=== PATIENT | female | born 1950 | race Caucasian/White ===

== ENCOUNTER 2017-08-23 12:27 | Emergency (ER) | payer MEDICARE, OTHER, SELFPAY ==
[2017-08-23 12:29] VITALS: BP 88/65; PULSE 104; RESP 16; TEMP 36.2; O2SAT 99; BMI 18.7
--- NOTE | 2017-08-23 12:48 | ED.VISSUMM ---
- ER Visit Summary Date of Service: 08/23/17 Chief Complaint: [] Rectal bleeding History of Present Illness: The patient is a 67 F [] complaining of concern for rectal bleeding that began after eating hot dog as her stools have been dark since that occurred, she denies any vaginal bleeding pelvic pain normal urinary habits no blood in the urine. Her schizophrenia is well controlled she denies any other past history she has no abdominal pain fever cough she has no history of GI elements no history of colonoscopy in general her health has been very good The hot dog and then her stools have changed since then she is concerned about rectal bleeding but she is not on anticoagulants or nonsteroidals and she has no history of rectal bleeding Physical Examination: [] Blood pressure is about 90/80 she is a thin woman vazquez her vitals are within normal range she is in no distress there is no signs of psychomotor agitation head neck unremarkable lungs are clear heart tones are normal abdomen soft nontender rectal exam done with nurse marketing account executive shows brown stool no pain bimanual exam shows no blood no obvious masses or lesions or pain to the bimanual exam, her back is unremarkable upper and lower extremities are unremarkable no skin bruising Test Results: [] Emergency Department Course and Treatment: [] Her age and her complaints screening labs are unremarkable she has had no rectal bleeding or bleeding of any kind she does have some white cells in her urine but she has no UTI symptoms urine culture was sent I have explained her she needs to have this followed up as a precaution and given her age and her past history we will start her on Bactrim DS first dose here, she is comfortable with discharge home she was given a liter of fluid she has no complaints and again no bleeding while she has been in the emergency department or any complaints of any kind. Her schizophrenia appears well-controlled there is no psychomotor agitation or hallucinations is able to clearly read back to me the instructions and the importance of follow-up Treatment Plan: [] Disposition: [] Home stable Impression: [] Concern for rectal bleeding possible UTI This note was generated with icomasoftation software. It may contain incorrect words, spelling, and punctuation that were not noted in review of the chart prior to signing ED Disposition - Plan for ED Patient: Chief Complaint: GI Bleed Referrals: Magdalena Archer PA [Primary Care Provider] -
--- NOTE | 2017-08-23 12:52 | ED.DCSUM_ITS ---
- ER Visit Summary Date of Service: 08/23/17 Chief Complaint: [] Rectal bleeding History of Present Illness: The patient is a 67 F [] complaining of concern for rectal bleeding that began after eating hot dog as her stools have been dark since that occurred, she denies any vaginal bleeding pelvic pain normal urinary habits no blood in the urine. Her schizophrenia is well controlled she denies any other past history she has no abdominal pain fever cough she has no history of GI elements no history of colonoscopy in general her health has been very good The hot dog and then her stools have changed since then she is concerned about rectal bleeding but she is not on anticoagulants or nonsteroidals and she has no history of rectal bleeding Physical Examination: [] Blood pressure is about 90/80 she is a thin woman vazquez her vitals are within normal range she is in no distress there is no signs of psychomotor agitation head neck unremarkable lungs are clear heart tones are normal abdomen soft nontender rectal exam done with nurse die set up worker shows brown stool no pain bimanual exam shows no blood no obvious masses or lesions or pain to the bimanual exam, her back is unremarkable upper and lower extremities are unremarkable no skin bruising Test Results: [] Emergency Department Course and Treatment: [] Her age and her complaints screening labs are unremarkable she has had no rectal bleeding or bleeding of any kind she does have some white cells in her urine but she has no UTI symptoms urine culture was sent I have explained her she needs to have this followed up as a precaution and given her age and her past history we will start her on Bactrim DS first dose here, she is comfortable with discharge home she was given a liter of fluid she has no complaints and again no bleeding while she has been in the emergency department or any complaints of any kind. Her schizophrenia appears well-controlled there is no psychomotor agitation or hallucinations is able to clearly read back to me the instructions and the importance of follow-up Treatment Plan: [] Disposition: [] Home stable Impression: [] Concern for rectal bleeding possible UTI This note was generated with Fipeoation software. It may contain incorrect words, spelling, and punctuation that were not noted in review of the chart prior to signing ED Disposition - Plan for ED Patient: Chief Complaint: GI Bleed Referrals: Magdalena Archer PA [Primary Care Provider] -
[2017-08-23] MEDS: 0.9% Normal Saline 1,000 ML 125 ML IV (12:59)
[2017-08-23 13:00] VITALS: RESP 20
[2017-08-23 13:12] LABS: Red Blood Cells-Urine 0 SEEN /hpf (0-5)
[2017-08-23 13:17] LABS: Color, Urine Yellow (Yellow); Glucose, Dipstick Normal (Normal); Ketone-Dipstick 15 mg/dl (Negative); Leukocyte Esterase-Dipstick 25 /ul (Negative); Nitrite-Dipstick Negative (Negative); Occult Blood-Urine 50 /ul (Negative); Protein-Dipstick 30 mg/dl (Negative); Specific Gravity, Urine 1.025 (1.002-1.030); Urine Bilirubin Dipstick 3 mg/dL (Negative); Urine Clarity Cloudy (Clear); Urine Urobilinogen 4 mg/dl (Normal)
[2017-08-23 13:18] LABS: Absolute Lymphocyte Count 0.97 X10^3/ul (0.83-4.51); Absolute Neutrophil Count 5.7 X10^3/uL (2.0-7.7); Basophil# 0.02 X10^3/uL; Basophil% 0.3 % (0-1); Eosinophil# 0.04 X10^3/uL; Eosinophils% 0.5 % (0-5); Hematocrit 35.9 % (37-47); Lymphocyte # 0.97 X10^3/ul (4.0); Lymphocyte % 13.3 % (19-41); Mean Corp Hgb Conc 33.4 g/gl (32-36); Mean Corpuscular Hgb 31.5 pg (27.0-32.0); Mean Corpuscular Volume 94.2 fL (81-99); Mean Platelet Vol. 10.8 fl (6.2-12.0); Monocyte# 0.56 X10^3/uL; Monocyte% 7.7 % (0-10); Neutrophil # 5.71 X10^3/uL (2.7-7.7); Neutrophil % 78.1 % (47-70); Platelet Count 208 K/mm3 (150-450); RBC Distribution Width CV 12.9 % (11.6-14.6); Red Blood Count 3.81 M/mm3 (4.2-5.4); White Blood Count 7.3 K/mm3 (4.4-11.0)
[2017-08-23 13:19] LABS: POSITIVE COUNT NO; POSITIVE DIFFERENTIAL NO; POSITIVE MORPHOLOGY NO
[2017-08-23 13:21] LABS: Prothrombin Time (Protime)PT. 13.3 SECONDS (11.7-14.9)
[2017-08-23 13:22] LABS: Bacteria 1+ /hpf (None Seen); Squamous Epithelial Cells - UA 0-5 SEEN /hpf (5-10); White Blood Cells 5-10 SEEN /hpf (0-5)
[2017-08-23 13:23] LABS: Calcium Oxalate Crystals Ur 3+ /hpf (<or=2+); Hyaline Cast 0-5 SEEN /lpf (0-5); Mucous, Urine 1+ /hpf (<or=2+)
[2017-08-23 13:32] LABS: AST(SGOT) 22 U/L (15-37); Alanine Aminotransfer ALT/SGPT 18 U/L (13-56); Albumin, Serum 3.3 g/dL (3.2-5.0); Alkaline Phosphatase 86 U/L (45-117); Anion Gap 10 (5-15); BUN 11 mg/dL (7-18); BUN/Creat Ratio 11.5 RATIO (10-20); Bilirubin, Direct 0.09 mg/dL (0.00-0.30); Chloride 106 mmol/L (98-107); Creatinine, Serum 0.96 mg/dL (0.55-1.02); EST Glomerular Filtration Rate 61 mL/min (>60); Est Glom Filt Rate - Afr Amer 74 mL/min (>60); Estimated Creatinine Clearance 41.82 ml/min; Globulin 3.2 g/dL (2.2-4.2); Glucose 92 mg/dL (74-106); Lipase 260 U/L (73-393); Potassium 3.4 mmol/L (3.5-5.1); Protein, Total 6.5 g/dL (6.4-8.2); Sodium Level 143 mmol/L (136-145)
--- NOTE | 2017-08-23 15:20 | ED.DEP ---
ED Disposition - Plan for ED Patient: Chief Complaint: GI Bleed Instructions: ED Hematochezia Stable, ED UTI Cystitis Female Prescriptions: Ciprofloxacin [Cipro] 500 mg PO BID #14 tab Referrals: Magdalena Archer PA [Primary Care Provider] -
[2017-08-23] MEDS: 0.9% Normal Saline 1,000 ML 999 ML IV (15:30)
[2017-08-23] MEDS: Ciprofloxacin 500 MG Tablet PO (15:30)
[2017-08-23 15:31] VITALS: BP 152/71; PULSE 60; RESP 15; O2SAT 100
[2017-08-23 15:35] VITALS: BP 152/71; PULSE 60; RESP 15; O2SAT 100
--- NOTE | 2017-08-23 15:36 | ED.RN ---
PT GIVEN WRITTEN AND VERBAL DISCHARGE INSTRUCTIONS AND HOME GOING PRESCRIPTIONS. PT VERBALIZES UNDERSTANDING AND DENIES ANY FURTHER QUESTIONS. PT TO BE D/C WHEN IV FLUIDS ARE COMPLETE.
--- NOTE | 2017-08-23 16:09 | ED.RN ---
PT FLUIDS COMPLETED. IV D/C AND COVERED WITH 2X2 GAUZE DRESSING. MINIMAL BLEEDING NOTED. PT DRESSES SELF AND IS AMBULATORY HOME BY SELF.
== END 2017-08-23 16:14 | disposition home or self-care (01) ==
PROVIDERS: Emergency Provider Emergency Medicine; Family Provider Physician Assistant; PCP Physician Assistant
DX: K62.5 Hemorrhage of anus and rectum (principal); N39.0 Urinary tract infection, site not specified; F20.9 Schizophrenia, unspecified; Z79.51 Long term (current) use of inhaled steroids; Z79.899 Other long term (current) drug therapy
CPT/HCPCS: 80048; 80076; 81001; 82274; 83690; 85025; 85610; 87086; 87088; 87186; 96360; 96361; 99284; J7030; J7040; A4216

== ENCOUNTER 2017-11-06 06:30 | Day surgery (SDC) | payer MEDICARE, OTHER, SELFPAY ==
[2017-11-06] VITALS (7 sets, daily range): BP systolic 134–152; BP diastolic 73–83; PULSE 70–88; RESP 16; TEMP 36.6–37.1; O2SAT 99–100; BMI 18.2
--- NOTE | 2017-11-06 | IMM_PTH ---
PATIENT: MICA YORK LOC: EN U#:[id number] AGE/SX: 67/F ROOM: RE11/06/[address]: Dr. Kavin Kramer MD : 1950 BED: DIS: 11/06/2017 SPEC #: [id number] RECD: 11/07/17 12:32 STATUS: GOLDIE REMargarito #: [id number] RADHA: 11/06/17 00:[address]: Kavin Kramer DEPT: IMMUNOHISTOCHEMISTRY RECD BY: Prema Singh ENTERED: 11/07/17 12:33 SP TYPE: IMMUNO OTHR DR: NITESH Amin Tissues: B - Stomach, NOS Procedures: H Pylori (initial) PHYSICIAN & INSTITUTION [place] [id number] SPECIMEN INFORMATION: Tissue Source: B ? Gastric antrum biopsy Clinical Info: Hemoccult positive stools Specimen Number: [id number] CPT code: 13493 METHODOLOGY: Deparaffinized sections of prefer/formalin-fixed tissue or PAP/DQ stained slides are incubated with monoclonal/polyclonal antibodies/oligonucleotide probes. Localization is made via biotin free immunoperoxidase method. Appropriate controls are performed and reacted as expected. Results on target cell population are indicated in the following table: RESULTS: ANTIBODY / CLONE RESULT Block B H Pylori (polyclonal) negative These tests were developed and their performance characteristics determined by [facility]. They may not have been cleared or approved by the U.S. Food and Drug Administration. The FDA has determined that such clearance or approval is not necessary. INTERPRETATION: B. Gastric antrum, biopsy: Negative for Helicobacter pylori organisms. SJ:teresa 11/09/17
--- NOTE | 2017-11-06 07:57 | EGD_PTH ---
PATIENT: MICA YORK LOC: EN U#:[id number] AGE/SX: 67/F ROOM: RE11/06/[address]: Dr. Kavin Kramer MD : 1950 BED: DIS: 11/06/2017 SPEC #: [id number] RECD: 11/06/17 13:25 STATUS: GOLDIE MANOLO #: [id number] RADHA: 11/06/17 07:[address]: Kavin Kramer DEPT: SURGICAL PATHOLOGY RECD BY: Kelby Chao ENTERED: 11/06/17 13:47 SP TYPE: EGD BIOPSY OTHR DR: NITESH Amin Tissues: A - Duodenum, NOS B - Gastric mucous membrane C - Esophageal mucous membrane Procedures: Special Stain Group II Surgery Specimen Level IV Alcian Blue/PAS (control) HEADER OPERATION: EGD with biopsy PRE-OP DIAGNOSIS: Hemoccult positive stools TISSUE SUBMITTED: A ? Biopsy duodenum, B ? Biopsy gastric antrum, C ? Biopsy distal esophagus MICROSCOPIC DIAGNOSIS A. Duodenum, biopsy: Fragment of duodenal mucosa, no pathologic diagnosis. B. Gastric antrum, biopsy: Mild gastritis. A minute lymphoid aggregate, favor benign. C. Distal esophagus, biopsy: Fragment of gastric mucosa with mild chronic inflammation. Intestinal metaplasia (goblet cell metaplasia) is not identified. See comment. SJ:teresa 11/07/17 COMMENT B. The results of immunohistochemistry for Helicobacter pylori will be reported separately ([id number]). C. Alcian blue/PAS stain with matched control is used in the evaluation of the specimen. MICROSCOPIC DESCRIPTION Slides are reviewed. B. The specimen shows fragments of gastric mucosa with chronic inflammatory cell infiltrates in the lamina propria consisting of lymphocytes and plasma cells, consistent with mild chronic gastritis. A minute lymphoid aggregate is also noted, favor benign. GROSS DESCRIPTION A - Received in fixative is one container labeled with the patient's name and designated duodenum. The specimen consists of one irregular fragment of light patten soft tissue that measures 0.3 x 0.2 x 0.1 cm. The specimen is totally submitted in one cassette. B - Received in fixative is one container labeled with the patient's name and designated gastric antrum. The specimen consists of one irregular fragment of light patten soft tissue that measures 0.4 x 0.3 x 0.1 cm. The specimen is totally submitted in one cassette. C - Received in fixative is one container labeled with the patient's name and designated distal esophagus. The specimen consists of one irregular fragment of light patten soft tissue that measures 0.4 x 0.2 x 0.1 cm. The specimen is totally submitted in one cassette. / SJ:rg 11/06/17 TC:3 CPT: 54083 x3, 40307
--- NOTE | 2017-11-06 08:21 | PCM.OPRPT ---
Problem List (1) Stool guaiac positive Status: Acute Report of Operation Date of Procedure: 11/06/17 Pre-Operative Diagnosis: Hemoccult positive stool Post-Operative Diagnosis: Small hiatal hernia, minimal distal esophagitis, mild antral gastritis. Normal-appearing colon, internal and external hemorrhoids Surgery/Procedure Performed:: Esophagogastroduodenoscopy with duodenal and antral and distal esophageal cold forceps biopsies. Colonoscopy Description of Surgical Findings:: Timeout and informed consent was obtained. 67-year-old female was taken to the endoscopy suite. Her oropharynx anesthetized with Cetacaine. She underwent monitored anesthesia care. The flexible gastroscope was inserted into the esophageal inlet. Proximal mid distal esophagus not remarkable. EG junction at 36 cm. Small hiatal hernia noted. Very minimal evidence suggesting distal esophagitis at the e.g. junction. Scope was advanced into the stomach a mild erythema in the antrum noted. The scope was advanced through the pylorus first and second portions of the duodenum were inspected this was not remarkable. Duodenal biopsy was obtained. The scope was withdrawn into the stomach and antral biopsy was obtained. The scope was retroflexed the EG junction and cardia inspected. The cardia was not remarkable. Small hiatal hernia noted. The greater and lesser curvature was carefully inspected. Excess fluid and air was aspirated free. Scope was withdrawn to the distal esophagus at the e.g. junction distal esophageal biopsy was obtained. Hemostasis was intact the scope was further withdrawn without additional finding. Digital rectal exam demonstrated normal anal tone. Moderate internal and external hemorrhoids without mass lesion. No active bleeding. Flexible colonoscope inserted the rectum advanced with tortuous sigmoid colon splenic flexure was acutely angulated but with careful attention the scope was advanced past this area. The scope was then readily advanced to the transverse colon to the cecum. Cecum ileocecal valve area was nicely achieved. Bowel prep was good. The scope was carefully withdrawn from the cecum ascending colon transverse colon descending colon and sigmoid colon. Diverticulosis of the sigmoid noted. No evidence of acute inflammatory change. The scope was retroflexed within the rectum the hemorrhoidal changes noted but no active bleeding. Excess fluid and air was aspirated free the procedure was completed with the patient tolerating it well Impression Small hiatal hernia with minimal distal esophagitis. Mild antral gastritis likely the source of Hemoccult positive stool Sigmoid diverticulosis. Internal and external hemorrhoids. No active bleeding. Screening colonoscopy anticipated in 10 years. She has never had a previous screening colonoscopy. The patient will be recommended to start famotidine 20 mg orally twice daily. She will be notified of EGD biopsy results as they become available. Progress and prognosis at this point are felt to be good. Gastritis likely source of Hemoccult positive stool. Laboratory was otherwise unremarkable. Colonoscopy was started at 0804. The cecum was reached at 0812. The procedure was completed at 0818. Cc: Tesfaye Kramer M.D., F.A.C.S. Type of Anesthesia:: MAC
== END 2017-11-06 09:35 | disposition home or self-care (01) ==
LOC: EN 06:31 → AC 06:33
PROVIDERS: Family Provider Physician Assistant; PCP Physician Assistant; Visit Provider Surgery
PROC: 0DJD8ZZ Inspection of Lower Intestinal Tract, Via Natural or Artificial Opening Endoscopic (ICD-10-PCS; CPT 45378; principal; 2017-11-06 07:40)
DX: K62.5 Hemorrhage of anus and rectum (principal); R19.5 Other fecal abnormalities; K44.9 Diaphragmatic hernia without obstruction or gangrene; K20.9 Esophagitis, unspecified; K29.50 Unspecified chronic gastritis without bleeding; K64.4 Residual hemorrhoidal skin tags; K64.8 Other hemorrhoids; E78.00 Pure hypercholesterolemia, unspecified; G25.81 Restless legs syndrome; J45.909 Unspecified asthma, uncomplicated; M19.90 Unspecified osteoarthritis, unspecified site; F20.0 Paranoid schizophrenia; F32.9 Major depressive disorder, single episode, unspecified; F41.9 Anxiety disorder, unspecified; Z78.0 Asymptomatic menopausal state; Z79.899 Other long term (current) drug therapy
CPT/HCPCS: 43239; G0121; 88305; 88313; 88342; J7120

== ENCOUNTER 2018-08-24 10:40 | Emergency (ER) | payer MEDICARE, OTHER, SELFPAY ==
[2018-08-24 10:41] VITALS: BP 99/82; PULSE 97; RESP 16; TEMP 36.7; O2SAT 98; BMI 18.6
--- NOTE | 2018-08-24 10:53 | VDLE_ITS ---
Reason For Study: swelling RIGHT LEFT CFV is compressible, spontaneous, phasic, GSV is normal. competent and demonstrates normal CFV is compressible, spontaneous, phasic, augmentation. competent, and demonstrates normal Procedure augmentation. Exam performed portable in ED. FV is compressible, spontaneous, phasic, The exam was diagnostic. competent and demonstrates normal A preliminary report was called and/or faxed augmentation. to Dr. Miller. POP V is compressible, spontaneous, phasic, competent and demonstrates normal augmentation. T/P Trunk is compressible. PTV is compressible. LT PerV is compressible. Interpretation Summary There is no evidence of left lower extremity deep vein thrombosis. Left greater saphenous vein appears patent and compressible segmentally. Normal flow patterns right common femoral vein Ordering Physician: Ever Miller Performed By: Orlando Hope RVT
--- NOTE | 2018-08-24 11:41 | NURSING ---
1056 TOLD SLEEPER CUTTER NEEDED VASCULAR 1057 [facility], CALLED BACK. HE WILL BE IN
--- NOTE | 2018-08-24 11:42 | NURSING ---
[facility], [facility]ASCULAR, HERE FOR PATIENT
--- NOTE | 2018-08-24 13:02 | ED.RN ---
doppler negative per [facility]
--- NOTE | 2018-08-24 13:41 | ED.DCSUM_ITS ---
History of Present Illness Chief Complaint: Lower Extremity Injury Detail of Chief Complaint: And central back pain Informant: Patient Onset: Days Context: Gradual Onset Timing: Continuous Quality: Swelling left lower leg with discoloration and central low back pain Location: Read quality Current Severity: Mild Maximum Severity: Moderate Worsened by: Back pain worse with movement Relieved by: Nothing Associated Symptoms: No chest pain or shortness of breath Past Medical History - Allergies and Home Meds Allergies/Adverse Reactions: Allergies No Known Allergies Allergy (Verified 08/24/18 10:41) Primary Care Physician: Magdalena Archer PA [Primary Care Provider] - Prior records reviewed: Yes Surgical History: noncontributory Lives: Alone Smoking Status: Former smoker Alcohol: None Review of Systems General: Denies: Chills, Fever, Malaise, Subjective, Sweats, Weight loss, - ENT: Denies: Rhinorrhea, Sore throat Cardiovascular: Denies: Chest pain, Palpitations Respiratory: Denies: Dyspnea, Cough, Dyspnea on exertion Gastrointestinal: Denies: Abdominal pain, Nausea, Vomiting, Diarrhea, Melena, Hematochezia Musculoskeletal: Reports: Back pain, Extremity Pain - Complains of pain calf. Denies: Myalgias, Arthralgias, Neck pain, Swelling, - - There is no history of DVT. She denies history of CHF., - Neurological: Denies: Headache, Weakness, Parasthesia, Numbness, -, - Hematologic: Denies: Easy bruising, Easy bleeding, Lymphadenopathy, -, - Physical Exam Vital Signs/Narrative: Vital Signs Temp Pulse Resp BP Pulse Ox 08/24/18 10:41 98.0 F 97 16 99/82 H 98 Inital Vital Signs reviewed: Yes General: Well nourished, Well developed, No Acute Distress Head: Normocephalic, Atraumatic Eyes: Perrl, EOMI ENT: Moist mucous membranes, No rhinorrhea Neck: Supple, Nontender, No lymphadenopathy, No JVD Cardiovascular: Regular rate, Regular rhythm, No murmurs, Normal S1, Normal S2 Respiratory: No distress, CTA bilaterally, Chest nontender Abdomen: Soft, Nontender, Nondistended, Normal bowel sounds Rectal: Deferred Back: Nontender, Normal Inspection, Spinal tenderness - Pain lower lumbar sacral region centrally. No point tenderness. Straight leg test and crossover test negative. Patella and ankle reflex are 1+ and symmetric. Normal perianal sen sation.. Negative for: CVA tenderness Extremities: Nontender, Edema - 1+ right leg 2-3+ left leg Skin: Normal color, No rash, Rash - There is discoloration distal two thirds of the left leg Neurological: Alert, Oriented x3, Cranial nerves II-XII grossly intact, Normal Strength, Normal Sensation, Normal DTR, Normal Gait - No foot drop. Able to walk on heels and toes. Able to do one legged squat Psychological: Normal affect, Normal Mood Diagnostic/Tx/Re-eval Venous duplex study was negative - Medical Decision Making With asymmetric leg swelling discoloration venous duplex study was obtained to evaluate for DVT. None was noted. Patient was medicated with NSAIDs for her back pain and instructed to elevate her legs since the swelling is secondary to lymphedema and discoloration is secondary to suspected venous stasis dermatitis. There is a small abrasion with no erythema, warmth, induration or fluctuance. There is no popliteal or inguinal lymphadenopathy. ED Disposition - Plan for ED Patient: Disposition: Home or Assisted Living Diagnosis: Lymphedema of both lower extremities, Low back pain Instructions: ED Neck Back Pain General, ED Lymphedema Referrals: Magdalena Archer PA [Primary Care Provider] - 5-7 Days
--- NOTE | 2018-08-24 14:10 | ED.RN ---
pt requesting pain medication
== END 2018-08-24 14:42 | disposition home or self-care (01) ==
PROVIDERS: Emergency Provider Emergency Medicine; Family Provider Physician Assistant; PCP Physician Assistant
DX: M54.5 Low back pain (principal); I89.0 Lymphedema, not elsewhere classified; M79.89 Other specified soft tissue disorders; Z87.891 Personal history of nicotine dependence
CPT/HCPCS: 93971; 99282

== ENCOUNTER 2018-11-29 16:23 | Observation (INO) | payer MEDICARE, OTHER, SELFPAY ==
[2018-11-29 16:24] VITALS: BP 143/67; PULSE 80; RESP 16; TEMP 37; O2SAT 98; BMI 17.9
--- NOTE | 2018-11-29 16:48 | CT_ITS ---
STUDY: CTA CHEST REASON FOR EXAM: Female, 68 years old. Chest pain RADIATION DOSAGE (If Supplied By Facility): CTDIvol = ( 8.95 ) mGy, DLP = ( 210.68 ) mGycm TECHNIQUE: The examination was performed with the intravenous administration of 75ml IV Isovue 370. Post-processing of the angiographic images was performed, with multiplanar reformation and 3D reconstruction. Individualized dose optimization techniques were used for this CT. COMPARISON: None. FINDINGS: Normal enhancement of the main pulmonary artery and right and left pulmonary arteries. Normal enhancement of the bilateral peripheral pulmonary arteries. There is no demonstrated pulmonary embolism. Normal thoracic aorta and visualized great vessels. There is no demonstrated aortic dissection. Normal heart and pericardium. Normal mediastinum. Normal hilar regions. Normal visualized trachea and bronchi. The lungs are well expanded. There is a right upper lobe 3 mm nodule, series 1002 images 96, series 1002, image 110, a right upper lobe 5 mm nodule, series 1002 image 91, a right lung base 5 mm nodule, series 1002, image 62, a left lower lobe 3 mm nodule, series 1002, image 120, a left upper lobe 3 mm nodule, series 1002 image 133, a left upper lobe 3 mm nodule series 1002 and is 149, and several scattered 1 to 2 mm nodules. There is mild pulmonary edema. Biapical scarring is present. Right anterior lung scarring is present. Normal pleura. Normal chest wall structures. Normal osseous structures. Normal visualized upper abdomen. CT/CTA Chest W/WO Contrast IMPRESSION: No evidence of pulmonary embolism. Bilateral pulmonary nodules, measuring up to 5 mm. Management per Fleischner criteria is recommended. Mild pulmonary edema. Electronically Signed: Juan Tyler, at 17:56 EDT Tel , Service support ,
--- NOTE | 2018-11-29 16:49 | EKG12_ITS ---
Test Reason : CP Blood Pressure : / mmHG Vent. Rate : 072 BPM Atrial Rate : 072 BPM P-R Int : 144 ms QRS Dur : 114 ms QT Int : 404 ms P-R-T Axes : 080 -52 094 degrees QTc Int : 442 ms Normal sinus rhythm Left anterior fascicular block Left ventricular hypertrophy with repolarization abnormality Abnormal ECG Confirmed by LUCIA TIPTON, MARYBEL ([id number]), editor in chief AVERY KERNS ([id number]) on 12/02/2018 1:16:33 PM Referred By: BRIAN/THAI Confirmed By:MARYBEL MYERS MD
[2018-11-29] MEDS: 0.9% Normal Saline 1,000 ML 1000 ML IV (17:00)
[2018-11-29] MEDS: Aspirin 81 MG TAB.CHEW 324 MG PO (17:00)
[2018-11-29 17:02] LABS: Absolute Lymphocyte Count 1.36 X10^3/ul (0.83-4.51); Absolute Neutrophil Count 5.1 X10^3/uL (2.0-7.7); Basophil# 0.04 X10^3/uL; Basophil% 0.6 % (0-1); Eosinophils% 2.8 % (0-5); Hematocrit 36.9 % (37-47); Lymphocyte # 1.36 X10^3/ul (4.0); Lymphocyte % 18.9 % (19-41); Mean Corp Hgb Conc 32.5 g/gl (32-36); Mean Corpuscular Hgb 29.7 pg (27.0-32.0); Mean Corpuscular Volume 91.3 fL (81-99); Mean Platelet Vol. 11.2 fl (6.2-12.0); Monocyte# 0.51 X10^3/uL; Monocyte% 7.1 % (0-10); Neutrophil # 5.06 X10^3/uL (2.7-7.7); Neutrophil % 70.5 % (47-70); POSITIVE COUNT NO; POSITIVE DIFFERENTIAL NO; POSITIVE MORPHOLOGY NO; Platelet Count 253 K/mm3 (150-450); RBC Distribution Width SD 46.3 fl (35.1-43.9); Red Blood Count 4.04 M/mm3 (4.2-5.4); White Blood Count 7.2 K/mm3 (4.4-11.0)
[2018-11-29 17:17] LABS: Anion Gap 8 (5-15); BUN 11 mg/dL (7-18); BUN/Creat Ratio 11.6 RATIO (10-20); Calcium,Total 9.2 mg/dL (8.5-10.1); Chloride 105 mmol/L (98-107); Creatinine, Serum 0.95 mg/dL (0.55-1.02); EST Glomerular Filtration Rate 62 mL/min (>60); Est Glom Filt Rate - Afr Amer 75 mL/min (>60); Estimated Creatinine Clearance 38.67 ml/min; Glucose 95 mg/dL (74-106); Potassium 4.1 mmol/L (3.5-5.1); Sodium Level 140 mmol/L (136-145)
--- NOTE | 2018-11-29 17:34 | US_ITS ---
STUDY: VENOUS DOPPLER ULTRASOUND - LEFT LOWER EXTREMITY REASON FOR EXAM: Female, 68 years old. Edema TECHNIQUE: Ultrasound evaluation of the deep vein system to include newsome-scale imaging and compression was performed. Newsome-scale imaging and Doppler sonographic evaluation, including duplex spectral analysis and qualitative color flow sonography, was performed. COMPARISON: None. FINDINGS: Common Femoral Vein: Normal compression, spontaneity and augmentation. Normal color Doppler. Common Femoral Vein/Greater Saphenous Junction: Normal compression, spontaneity and augmentation. Normal color Doppler. Deep Femoral Vein: Normal compression, spontaneity and augmentation. Normal color Doppler. Femoral Proximal: Normal compression, spontaneity and augmentation. Normal color Doppler. Femoral Middle: Normal compression, spontaneity and augmentation. Normal color Doppler. Femoral Distal: Normal compression, spontaneity and augmentation. Normal color Doppler. Popliteal Vein: Normal compression, spontaneity and augmentation. Normal color Doppler. Posterior Tibial Vein: Normal compression, spontaneity and augmentation. Normal color Doppler. Peroneal Vein: Normal compression, spontaneity and augmentation. Normal color Doppler. US/Venous Duplex Imag/Limited/Uni IMPRESSION: Normal venous Doppler ultrasound of the lower extremity. Electronically Signed: Juan Tyler, at 17:58 EDT Tel , Service support ,
[2018-11-29 18:48] VITALS: BP 141/88; PULSE 73; RESP 15; O2SAT 97
--- NOTE | 2018-11-29 19:21 | PCM.HP.STD ---
Problem List (1) Chest pain Status: Acute History of Present Illness Date of Admission: 11/29/18 Chief Complaint: CHEST PAIN The patient is a 68 year old F with a significant history of prior history of hernia; asthma; hyperlipidemia who presented to emergency department with a one-week history of progressively worsening chest pain. Associated with her symptoms is shortness of breath. Her chest pain increases with taking a deep breath and by coughing. She describes her chest pain as a dull pain to her left side of her chest. Her chest pain is nonradiating. It is continuous but at times abates in intensity. Her chest pain could go as high as 10 out of 10 in severity. While she was at the emergency department her chest pain was 3 out of 10. Her chest pain improves when she relax. She did stress test many years ago. She denies any nausea or vomiting or diaphoresis. Of note she experimented with smoking a few times many years ago. CTA and Doppler of extremities done at the ED was unremarkable. Past Medical History Medical History: Medical History (Last Reviewed 11/29/18 @ 19:57 by Gagandeep Roberts MD) Anxiety F41.9 Asthma J45.909 Depression F32.9 Osteoarthritis M19.90 Paranoid schizophrenia F20.0 S/P tubal ligation Z98.51 Allergies No Known Allergies Allergy (Verified 11/29/18 16:24) Home Medications: Ambulatory Orders Medication Instructions Recorded Budesonide/Formoterol 160/4.5 2 puff INHALATION BID 11/29/18 [Symbicort 160/4.5 Mcg Inhaler (SP)] Calcium Carbonate/Vitamin D3 1 ea PO DAILY 11/29/18 [Calcium 600 + Vit D Tablet] Fluoxetine [Prozac] 20 mg PO DAILY 11/29/18 Glucosamine/D3/Boswellia Danielle 1 ea PO DAILY 11/29/18 [Glucosamine Daily Complex Tab] Ipratropium [place] 0.06% 2 spray NASAL DAILY 11/29/18 [ATROVENT NASAL SPRAY (g)] Levocetirizine Dihydrochloride 5 mg PO DAILY 11/29/18 [Xyzal] Montelukast [Singulair] 10 mg PO QHS 11/29/18 Multivit-Min/Iron/Folic/Lutein 1 ea PO DAILY 11/29/18 [Centrum Silver Women Tablet] Omeprazole [Prilosec] 20 mg PO DAILY 11/29/18 Perflutren Lipid Microspheres 1.1 mg IV 11/29/18 [Definity] Temazepam [Restoril] 30 mg PO QHS PRN PRN 11/29/18 Surgical History: Surgical History (Last Reviewed 11/29/18 @ 19:57 by Gagandeep Roberts MD) S/P appendectomy Z90.49 S/P nasal septoplasty Z98.890 S/P unilateral salpingo-oophorectomy Z90.721 Lives: Alone Smoking Status: Never smoker - experimented somewhat with smoking. Alcohol: Rare - *Family History Maternal Family History: Family History (Last Reviewed 11/29/18 @ 19:58 by Gagandeep Roberts MD) Father CAD (coronary artery disease) Hypertension Sister Hypertension Review of Systems Constitutional: Denies: Chills, Fever, Weight Change HEENT: Denies: Head Aches, Sinus Congestion, Sinus Drainage Cardiovascular: Reports: Chest Pain. Denies: Palpitations Respiratory: Reports: Cough, Shortness of Breath Gastrointestinal: Denies: Abdominal Pain, Nausea, Vomiting Genitourinary: Denies: Dysuria Musculoskeletal: Denies: Joint Pain, Joint Tenderness Skin: Denies: Rash, Wounds Neurological: Denies: Numbness, Tingling, Focal weakness Psychiatric: Denies: Anxiety, Depression, Homicidal Ideations, Suicidal Ideations Hematologic/ Lymphatic: Denies: Easy Bruising, Easy Bleeding VTE Information - Inpt Only VTE Present on Admission: No VTE Mechan Device Prophylaxis: None VTE Pharm Prophylaxis ordered?: Yes Patient Problems: Active and Suspected Problems (Last Updated 10/19/17 @ 14:57 by Hien Murphy) Chest pain (Acute) - Physical Exam General: Alert, Oriented x3, Cooperative HEENT: Atraumatic, PERRLA, EOMI, Normocephalic Neck: Supple, No JVD, Negative Carotid Bruits Lungs: Clear to auscultation, Normal air movement Cardiovascular: Regular rate, No murmurs Abdomen: Bowel Sounds Present, Soft, Non Tender Extremities: No edema, Capillary Refill Less than 3 Seconds Skin: No rashes, No breakdown Musculoskeletal: No Tenderness to Palpation of Joints or Extremities Neurological: Cranial nerves II-XII grossly intact Psych/Mental Status: Normal Affect, Appropriate Vital Signs Temp Pulse Resp BP Pulse Ox 98.6 F 73 15 141/88 H 97 11/29/18 16:24 11/29/18 18:48 11/29/18 18:48 11/29/18 18:48 11/29/18 18:48 Oxygen Delivery Method Room Air Weight: 44.452 kg Body Mass Index (BMI) 17.9 Laboratory Tests Past 24 Hrs 11/29/18 11/29/18 16:30 16:30 WBC 7.2 RBC 4.04 L Hgb 12.0 Hct 36.9 L MCV 91.3 MCH 29.7 MCHC 32.5 RDW 14.0 RDW Differential 46.3 H Plt Count 253 MPV 11.2 Immature Gran % (Auto) 0.100 Neut % (Auto) 70.5 H Lymph % (Auto) 18.9 L Faulkner % (Auto) 7.1 Eos % (Auto) 2.8 Baso % (Auto) 0.6 Absolute Neuts (auto) 5.1 Absolute Lymphs (auto) 1.36 Total Counted Not Reportable Sodium 140 Potassium 4.1 Chloride 105 Carbon Dioxide 27.0 Anion Gap 8 BUN 11 Creatinine 0.95 Estim Creat Clear Calc 38.67 Est GFR (MDRD) Af Amer 75 Est GFR (MDRD) Non-Af 62 BUN/Creatinine Ratio 11.6 Glucose 95 Calcium 9.2 Troponin I < 0.015 Assessment/Plan All Active Problems (Last Updated 10/19/17 @ 14:57 by Hien Murphy) Stool guaiac positive (Acute) Chest pain (Acute) The patient is a 68 year old F with a significant history of prior history of hernia; asthma; hyperlipidemia who presented to emergency department with a one-week history of progressively worsening chest pain which increases with taking a deep breath and with coughing. Chest pain Likely muscular skeletal due to pleuritic nature of chest pain. However will rule out cardiac origin of chest pain. Admit to a monitored bed on PCU CTPA independently reviewed confirms no acute cardiopulmonary process. EKG independently reviewed confirms left ventricular hypertrophy with repolarization abnormalities Received aspirin 324 mg in emergency department ASA 81 mg p.o. daily SL NTG 0.4 mg prn as needed for chest pain Morphine as needed for pain We will check lipid panel. Serial cardiac enzymes Stat EKG as needed for chest pain Tread Stress test in the AM if the cardiac enzymes are negative Pulmonary nodules Incidental findings on CTPA Longitudinal follow-up. Asthma Symbicort continued Singular continued Levocetirizine continued Depression/anxiety Fluoxetine continued Insomnia Restoril continued GERD Omeprazole continued DVT prophylaxis Subcutaneous Lovenox Code Visit OBSV E&M: [id number] Initial observation care L3
--- NOTE | 2018-11-29 19:25 | ED.DCSUM_ITS ---
- ER Visit Summary Date of Service: 11/29/18 Chief Complaint: Chest pain History of Present Illness: The patient is a 68 F with chest pain for a week and a half. It was worse today. Worse with coughing and breathing. She also reports left lower extremity edema. Denies nausea or sweats. She had a heart cath years ago which was negative. No history of heart disease. She does have a history of asthma. Non-smoker. Physical Examination: Afebrile and vital signs unremarkable. Patient appears nontoxic and in no acute distress. Alert and oriented. Heart regular rate and rhythm. Lungs clear. Abdomen soft. Extremities nontender with mild left lower extremity edema. Skin appears normal. Test Results: EKG showed sinus rhythm at a rate of 72 with left anterior fascicular block and repolarization abnormality. No sign of acute ischemia or infarction pattern. CBC, BMP, troponin normal. Ultrasound of her left leg was negative. CT showed mild pulmonary edema and bilateral nodules but no evidence of PE. Emergency Department Course and Treatment: Patient treated with aspirin and placed on a monitor. Work-up as above. Patient will follow-up as an outpatient with her doctor for the pulmonary nodules. Her heart score is 4. She has not had recent provocative stress testing. I contacted the hospitalist for further care. Treatment Plan: As above Disposition: Admit Impression: 1. Chest pain 2. Pulmonary nodules This note was generated with [employer] dictation software. It may contain incorrect words, spelling, and punctuation that were not noted in review of the chart prior to signing ED Disposition - Plan for ED Patient: Referrals: Magdalena Archer PA [Primary Care Provider] -
[2018-11-29 19:33] VITALS: BP 133/75; PULSE 78; RESP 13; O2SAT 99
[2018-11-29 19:51] VITALS: BMI 18.4; BMI 18.5
[2018-11-29 19:59] VITALS: PULSE 75
[2018-11-29 20:10] VITALS: BP 149/93; PULSE 75; RESP 16; TEMP 36.8; O2SAT 99
--- NOTE | 2018-11-29 20:16 | EKG12_ITS ---
Test Reason : CP ADMIT Blood Pressure : / mmHG Vent. Rate : 076 BPM Atrial Rate : 076 BPM P-R Int : 146 ms QRS Dur : 120 ms QT Int : 418 ms P-R-T Axes : 086 -52 084 degrees QTc Int : 470 ms Normal sinus rhythm Left axis deviation Left ventricular hypertrophy with QRS widening and repolarization abnormality Abnormal ECG Confirmed by LUCIA TIPTON, MARYBEL ([id number]), non linear editor GRAYSON SERRANO ([id number]) on 12/05/2018 1:17:38 PM Referred By: DR ESCOBAR Confirmed By:MARYBEL MYERS MD
--- NOTE | 2018-11-29 20:54 | NURSING ---
Verbal report given to Sarah Cazares RN at 20:35. She will resume care of patient.
[2018-11-29] MEDS: Montelukast 10 MG Tablet PO (21:13)
[2018-11-29 21:29] VITALS: PULSE 75; RESP 16; O2SAT 99
[2018-11-29] MEDS: Temazepam 15 MG Capsule 30 MG PO (22:06)
[2018-11-30] VITALS (8 sets, daily range): BP systolic 121–160; BP diastolic 62–90; PULSE 67–85; RESP 16–18; TEMP 36.5–37.3; O2SAT 96–100
[2018-11-30 04:57] LABS: Absolute Lymphocyte Count 1.45 X10^3/ul (0.83-4.51); Absolute Neutrophil Count 2.8 X10^3/uL (2.0-7.7); Basophil# 0.04 X10^3/uL; Basophil% 0.7 % (0-1); Eosinophil# 0.29 X10^3/uL; Eosinophils% 5.4 % (0-5); Hematocrit 35.9 % (37-47); Hemoglobin 11.5 g/dl (12.0-15.0); Lymphocyte # 1.45 X10^3/ul (4.0); Lymphocyte % 27.1 % (19-41); Mean Corpuscular Hgb 29.5 pg (27.0-32.0); Mean Corpuscular Volume 92.1 fL (81-99); Mean Platelet Vol. 11.3 fl (6.2-12.0); Monocyte# 0.76 X10^3/uL; Monocyte% 14.2 % (0-10); Neutrophil # 2.81 X10^3/uL (2.7-7.7); Neutrophil % 52.4 % (47-70); POSITIVE COUNT NO; POSITIVE DIFFERENTIAL NO; POSITIVE MORPHOLOGY NO; Platelet Count 214 K/mm3 (150-450); RBC Distribution Width SD 46.3 fl (35.1-43.9); White Blood Count 5.4 K/mm3 (4.4-11.0)
[2018-11-30 05:02] LABS: Prothrombin Time (Protime)PT. 13.4 SECONDS (11.7-14.9)
[2018-11-30 05:06] LABS: Anion Gap 4 (5-15); BUN 11 mg/dL (7-18); BUN/Creat Ratio 15.2 RATIO (10-20); Calcium,Total 8.9 mg/dL (8.5-10.1); Chloride 106 mmol/L (98-107); Creatinine, Serum 0.72 mg/dL (0.55-1.02); EST Glomerular Filtration Rate 84 mL/min (>60); Est Glom Filt Rate - Afr Amer 102 mL/min (>60); Estimated Creatinine Clearance 37.86 ml/min; Glucose 103 mg/dL (74-106); Potassium 4.3 mmol/L (3.5-5.1); Sodium Level 141 mmol/L (136-145)
[2018-11-30 05:10] LABS: Cholesterol 170 mg/dL (200); High Density Lipoprotein 57 mg/dL; Triglycerides 89 mg/dL; Very Low Density Lipoprotein 18 mg/dL (5-40)
--- NOTE | 2018-11-30 05:55 | EKG12_ITS ---
Test Reason : AM EKG Blood Pressure : / mmHG Vent. Rate : 069 BPM Atrial Rate : 069 BPM P-R Int : 160 ms QRS Dur : 118 ms QT Int : 436 ms P-R-T Axes : 083 -62 065 degrees QTc Int : 467 ms Sinus rhythm with Premature supraventricular complexes Left axis deviation Incomplete left bundle branch block Inferior infarct , age undetermined Abnormal ECG Confirmed by LUCIA TIPTON, MARYBEL ([id number]), associate entertainment editor GRAYSON SERRANO ([id number]) on 12/05/2018 1:14:05 PM Referred By: DR ESCOBAR Confirmed By:MARYBEL MYERS MD
[2018-11-30] MEDS: Aspirin E.C. 81 MG Tablet PO (06:15)
[2018-11-30] MEDS: Budesonide Respules 0.5 MG/2 ML AMPUL.NEB. INHALATION (06:59)
[2018-11-30] MEDS: Albuterol 2.5 MG/3 ML VIAL.NEB. INHALATION (07:00)
[2018-11-30] MEDS: FLUoxetine 20 MG Capsule PO (12:27)
[2018-11-30] MEDS: Pantoprazole Sodium 20 MG Tablet PO (12:27)
[2018-11-30] MEDS: Loratadine 10 MG Tablet 5 MG PO (12:28)
[2018-11-30] MEDS: Ipratropium Bromide 0.06% NASAL SPRAY 2 SPRAY NASAL (12:33)
--- NOTE | 2018-11-30 12:49 | STRESSREP_ITS ---
Stress Test Report Date: 11-29-18 Procedure: Exercise tolerance test/imaging study Indications: Chest pain; shortness of breath/dyspnea Consent: Per the patient Procedure: The patient exercised on a Ashish protocol for 1 minute not completing Stage I achieving a peak heart rate of 118 bpm (78 % predicted maximal heart rate) with a peak blood pressure 172/70 mmHg and a peak MET capacity of 2 METs. The baseline ECG demonstrated normal sinus rhythm. The peak exercise ECG demonstrated somatic/motion artifact with no obvious ECG changes of the heart rate achieved. There was a rare PVC pretest and in recovery. The functional capacity was considered decreased. There was [no complaint of chest discomfort during exercise or recovery]. The examination was discontinued secondary to unable to walk on the treadmill. Impression: 1. Technically adequate (percent predicted maximal heart rate greater than 85%) exercise tolerance test 2. Peak exercise ECG with somatic/motion artifact with no obvious ECG changes at the heart rate achieved 3. [There were no cardiac dysrhythmias pretest, during exercise, or recovery] 4. Pharmacologic (regadenoson) evaluation pending Procedure: Pharmacologic stress nuclear imaging study Consent: Per the patient Procedure: The patient underwent pharmacologic (Regadenoson) evaluation with a peak heart rate of 100 beats per minute (66 %predicted maximal heart rate) and a peak blood pressure of 160/80 mmHg. The baseline ECG demonstrated normal sinus rhythm. The peak pharmacologic ECG demonstrated no obvious ECG changes. There was a rare PVC during infusion and in recovery. [There was no complaint of chest discomfort during pharmacologic infusion or recovery]. The examination was discontinued secondary to completion of protocol. Impression: 1. Pharmacologic (Regadenoson) evaluation 2. Peak pharmacologic ECG with no obvious ECG changes. 3. There was a rare PVC during infusion and in recovery. 4. Nuclear images pending Myocardial perfusion imaging study: Technique: The patient was injected with 11.6 millicuries of technetium 99m Cardiolite and subsequently rest SPECT Cardiolite nuclear imaging was obtained in the horizontal long, vertical long, and short axis views. The patient exercised on a Ashish protocol for 1 minute not completing Stage I achieving a peak heart rate of 118 bpm (78 % predicted maximal heart rate) with a peak blood pressure 172/70 mmHg and a peak MET capacity of 2 METs. The patient underwent pharmacologic (Regadenoson) evaluation with a peak heart rate of 100 beats per minute (66 % percent predicted maximal heart rate) and a peak blood pressure of 160/80 mmHg. The patient was injected with 33.4 millicuries of technetium 99m Cardiolite and subsequently stress SPECT Cardiolite nuclear imaging was obtained in the horizontal long, vertical long, and short axis views. A gated Cardiolite study at peak stress was obtained. Interpretation: Rest and stress SPECT Cardiolite nuclear imaging status post realignment, normalization, and attenuation correction demonstrate insert normal perfusion. [There is end systolic thickening and brightening]. [The gated Cardiolite study demonstrates myocardial thickening and inward wall motion]. The reported LVEF is 67 %. Impression: 1. [Rest and stress SPECT Cardiolite nuclear imaging demonstrate relative unifo rm tracer uptake and myocardial perfusion appearing within normal limits]. 2. The gated Cardiolite study reports an LVEF of 67 %. This note was generated with [employer] software. It may contain incorrect words, spelling, and punctuation that were not noted in checking the note before signing.
--- NOTE | 2018-11-30 13:19 | DCINST_ITS ---
- Discharge Diagnoses Current Active Problems: Current Active and Chronic Problems (Last Reviewed 11/29/18 @ 19:57 by Gagandeep Roberts MD) Chest pain (Acute) You will use the following diet at home:: No restrictions Discharge Activity: Return to Normal Activity Call your doctor if you observe: Shortness of breath, Dizziness, Fainting spells, Chest pain Allergies/Adverse Reactions: Allergies No Known Allergies Allergy (Verified 11/29/18 16:24) Medications to take at Discharge Budesonide/Formoterol 160/4.5 [Symbicort 160/4.5 Mcg Inhaler (SP)] 2 puff INHALATION BID 11/29/18 Calcium Carbonate/Vitamin D3 [Calcium 600 + Vit D Tablet] 1 ea PO DAILY 11/29/18 Fluoxetine [Prozac] 20 mg PO DAILY 11/29/18 Glucosamine/D3/Boswellia Danielle [Glucosamine Daily Complex Tab] 1 ea PO DAILY 11/29/18 Haloperidol Lactate 4 mg PO QHS 11/29/18 Ipratropium [place] 0.06% [ATROVENT NASAL SPRAY] 2 spray NASAL DAILY PRN PRN 11/29/18 Levocetirizine Dihydrochloride [Xyzal] 5 mg PO DAILY 11/29/18 Montelukast [Singulair] 10 mg PO QHS 11/29/18 Multivit-Min/Iron/Folic/Lutein [Centrum Silver Women Tablet] 1 ea PO DAILY 11/29/18 Omeprazole [Prilosec] 20 mg PO DAILY 11/29/18 Temazepam [Restoril] 30 mg PO QHS PRN PRN 11/29/18 Primary Care Physician: Magdalena Archer PA [Primary Care Provider] - Please follow up with your Primary Care Physician in: 1 Week Test Results: Test results from this visit will be discussed in further detail at your follow- up appointment, if applicable. Proposed Discharge Date: 11/30/18
--- NOTE | 2018-11-30 13:20 | PCM.DC.SUM ---
<Madeleine Fragoso - Last Filed: 11/30/18 13:34> Discharge Date and Diagnosis Date of Admission: 11/29/18 Date of Discharge: 11/30/18 - Primary Discharge Diagnosis Active and Suspected Problems (Last Reviewed 11/29/18 @ 19:57 by Gagandeep Roberts MD) 1. Chest pain, ACS ruled out 2. Incidental bilateral pulmonary nodules, measuring up to 5 mm 3. Chronic persistent asthma 4. Depression/anxiety 5. Insomnia 6. GERD Hospital Course and Treatment Imaging Results: Diagnostic Data Chest CTA 11/29/18 16:48 IMPRESSION: No evidence of pulmonary embolism. Bilateral pulmonary nodules, measuring up to 5 mm. Management per Fleischner criteria is recommended. Mild pulmonary edema. Electronically Signed: Juan Tyler, at 17:56 EDT Tel , Service support , Venous Duplex 11/29/18 17:34 IMPRESSION: Normal venous Doppler ultrasound of the lower extremity. Electronically Signed: Juan Tyler, at 17:58 EDT Tel , Service support , Operations: None Procedures: Stress test Summary of Care Provided: The patient is a 68 year old F admitted 11/29/2018 due to chest pain. 1. Chest pain, ACS ruled out-EKG without ST-T changes. Troponin negative. Patient underwent stress test which was negative for ischemia. Cardiac etiology ruled out. Follow-up with primary care provider in 1 week. Suspect musculoskeletal in nature. 2. Incidental bilateral pulmonary nodules, measuring up to 5 mm-chest CTA negative for PE. Demonstrated bilateral pulmonary nodules, measuring up to 5 mm. Per Fleischner criteria, low risk/less than 6mm/multiple nodules require no routine follow-up however patient may have optional CT at 12 months for further monitoring. Follow-up with primary care provider as noted above. 3. Chronic persistent asthma-no acute exacerbation. Continue home inhaler regimen. 4. Depression/anxiety-continue home fluoxetine regimen. 5. Insomnia-continue Restoril regimen. 6. GERD-continue home omeprazole regimen. Patient seen and examined prior to discharge. Physical assessment as noted below. Patient is stable for discharge with follow up recommendations as noted above. This patient was seen by FRED Rivera under the supervision of Dr. Chávez. - Physical Exam General: Alert, Oriented x3, Cooperative HEENT: Atraumatic, PERRLA, EOMI, Normocephalic Neck: Supple, No JVD, Negative Carotid Bruits Lungs: Clear to auscultation, Diminished Cardiovascular: Regular rate, Regular Rhythm, Normal S1, Normal S2, No murmurs Abdomen: Bowel Sounds Present, Soft, Non Tender, Non-Distended Extremities: No clubbing, No cyanosis, No edema, Capillary Refill Less than 3 Seconds Skin: No rashes, No breakdown Musculoskeletal: No Tenderness to Palpation of Joints or Extremities Neurological: Cranial nerves II-XII grossly intact, Neuro grossly intact Psych/Mental Status: Normal Affect, Appropriate Vital Signs Temp Pulse Resp BP Pulse Ox 97.7 F L 74 18 146/76 H 100 11/30/18 12:24 11/30/18 12:24 11/30/18 12:24 11/30/18 12:24 11/30/18 12:24 Oxygen Delivery Method Room Air Weight: 101 lb Body Mass Index (BMI) 18.4 Intake and Output for Last 24 Hours 11/28/18 11/29/18 11/30/18 23:59 23:59 23:59 Intake Total 980 / 980 Balance 980 / 980 Laboratory Tests Past 24 Hrs 11/29/18 11/29/18 11/29/18 16:30 16:30 20:45 WBC 7.2 RBC 4.04 L Hgb 12.0 Hct 36.9 L MCV 91.3 MCH 29.7 MCHC 32.5 RDW 14.0 RDW Differential 46.3 H Plt Count 253 MPV 11.2 Immature Gran % (Auto) 0.100 Neut % (Auto) 70.5 H Lymph % (Auto) 18.9 L Rowan % (Auto) 7.1 Eos % (Auto) 2.8 Baso % (Auto) 0.6 Absolute Neuts (auto) 5.1 Absolute Lymphs (auto) 1.36 Total Counted Not Reportable PT INR APTT Sodium 140 Potassium 4.1 Chloride 105 Carbon Dioxide 27.0 Anion Gap 8 BUN 11 Creatinine 0.95 Estim Creat Clear Calc 38.67 Est GFR (MDRD) Af Amer 75 Est GFR (MDRD) Non-Af 62 BUN/Creatinine Ratio 11.6 Glucose 95 Calcium 9.2 Troponin I < 0.015 < 0.015 Triglycerides Cholesterol LDL Cholesterol VLDL Cholesterol HDL Cholesterol 11/29/18 11/30/18 11/30/18 22:50 02:23 04:32 WBC RBC Hgb Hct MCV MCH MCHC RDW RDW Differential Plt Count MPV Immature Gran % (Auto) Neut % (Auto) Lymph % (Auto) Rowan % (Auto) Eos % (Auto) Baso % (Auto) Absolute Neuts (auto) Absolute Lymphs (auto) Total Counted PT INR APTT Sodium Potassium Chloride Carbon Dioxide Anion Gap BUN Creatinine Estim Creat Clear Calc Est GFR (MDRD) Af Amer Est GFR (MDRD) Non-Af BUN/Creatinine Ratio Glucose Calcium Troponin I < 0.015 < 0.015 Triglycerides 89 Cholesterol 170 LDL Cholesterol 95 VLDL Cholesterol 18 HDL Cholesterol 57 11/30/18 11/30/18 11/30/18 04:32 04:32 04:32 WBC 5.4 RBC 3.90 L Hgb 11.5 L Hct 35.9 L MCV 92.1 MCH 29.5 MCHC 32.0 RDW 14.0 RDW Differential 46.3 H Plt Count 214 MPV 11.3 Immature Gran % (Auto) 0.200 Neut % (Auto) 52.4 Lymph % (Auto) 27.1 Rowan % (Auto) 14.2 H Eos % (Auto) 5.4 H Baso % (Auto) 0.7 Absolute Neuts (auto) 2.8 Absolute Lymphs (auto) 1.45 Total Counted Not Reportable PT 13.4 INR 1.0 APTT 28.0 Sodium 141 Potassium 4.3 Chloride 106 Carbon Dioxide 31.0 Anion Gap 4 L BUN 11 Creatinine 0.72 Estim Creat Clear Calc 37.86 Est GFR (MDRD) Af Amer 102 Est GFR (MDRD) Non-Af 84 BUN/Creatinine Ratio 15.2 Glucose 103 Calcium 8.9 Troponin I Triglycerides Cholesterol LDL Cholesterol VLDL Cholesterol HDL Cholesterol Discharge Diet: No Restrictions Discharge Activity: Return to Normal Activity Call your doctor if you observe: Shortness of breath, Dizziness, Fainting spells, Chest pain Home Medications: Medications to take at Discharge Budesonide/Formoterol 160/4.5 [Symbicort 160/4.5 Mcg Inhaler (SP)] 2 puff INHALATION BID 11/29/18 Calcium Carbonate/Vitamin D3 [Calcium 600 + Vit D Tablet] 1 ea PO DAILY 11/29/18 Fluoxetine [Prozac] 20 mg PO DAILY 11/29/18 Glucosamine/D3/Boswellia Danielle [Glucosamine Daily Complex Tab] 1 ea PO DAILY 11/29/18 Haloperidol Lactate 4 mg PO QHS 11/29/18 Ipratropium [place] 0.06% [ATROVENT NASAL SPRAY] 2 spray NASAL DAILY PRN PRN 11/29/18 Levocetirizine Dihydrochloride [Xyzal] 5 mg PO DAILY 11/29/18 Montelukast [Singulair] 10 mg PO QHS 11/29/18 Multivit-Min/Iron/Folic/Lutein [Centrum Silver Women Tablet] 1 ea PO DAILY 11/29/18 Omeprazole [Prilosec] 20 mg PO DAILY 11/29/18 Temazepam [Restoril] 30 mg PO QHS PRN PRN 11/29/18 Primary Care Physician: Magdalena Archer PA [Primary Care Provider] - Please follow up with your Primary Care Physician in: 1 Week Disposition: Home Minutes spent on discharge:: 35 Patient Condition:: Stable Medical Necessity - Tobacco Use Smoking Status: Never smoker - experimented somewhat with smoking. Tobacco Use: Secondhand Meaningful Use Info Meaningful Use Diagnoses (Choose all that apply): None applicable <Romero Chávez - Last Filed: 11/30/18 13:42> Hospital Course and Treatment Summary of Care Provided: This patient was seen in conjunction with FRED Rivera . I have independently interviewed and examined the patient and reviewed pertinent historical, laboratory, and other data. Please refer to FRED Rivera note for details of this patient's presentation, findings, and recommendations. I have reviewed FRED Rivera note and concur with documented findings. In brief, patient is a 68-year-old lady with multiple comorbidities admitted with chest pain. Patient was placed in a monitored bed did rule out [place] with serial cardiac enzymes. Patient subsequently underwent a nuclear stress test which was negative for stress-induced ischemia. Patient also had a CTA of the chest which was negative for PE she was found to have an incidental pulmonary nodule measuring 5 mm. Patient was instructed to follow-up with PCP for repeat CAT scan in 12 months and subsequent monitoring Hospital course: As documented above by Madeleine Fragoso NP?C - Physical Exam Vital Signs Temp Pulse Resp BP Pulse Ox 97.7 F L 74 18 146/76 H 100 11/30/18 12:24 11/30/18 12:24 11/30/18 12:24 11/30/18 12:24 11/30/18 12:24 Oxygen Delivery Method Room Air Weight: 45.813 kg Body Mass Index (BMI) 18.4 Intake and Output for Last 24 Hours 11/28/18 11/29/18 11/30/18 23:59 23:59 23:59 Intake Total 980 / 980 Balance 980 / 980 Laboratory Tests Past 24 Hrs 11/29/18 11/29/18 11/29/18 16:30 16:30 20:45 WBC 7.2 RBC 4.04 L Hgb 12.0 Hct 36.9 L MCV 91.3 MCH 29.7 MCHC 32.5 RDW 14.0 RDW Differential 46.3 H Plt Count 253 MPV 11.2 Immature Gran % (Auto) 0.100 Neut % (Auto) 70.5 H Lymph % (Auto) 18.9 L Rowan % (Auto) 7.1 Eos % (Auto) 2.8 Baso % (Auto) 0.6 Absolute Neuts (auto) 5.1 Absolute Lymphs (auto) 1.36 Total Counted Not Reportable PT INR APTT Sodium 140 Potassium 4.1 Chloride 105 Carbon Dioxide 27.0 Anion Gap 8 BUN 11 Creatinine 0.95 Estim Creat Clear Calc 38.67 Est GFR (MDRD) Af Amer 75 Est GFR (MDRD) Non-Af 62 BUN/Creatinine Ratio 11.6 Glucose 95 Calcium 9.2 Troponin I < 0.015 < 0.015 Triglycerides Cholesterol LDL Cholesterol VLDL Cholesterol HDL Cholesterol 11/29/18 11/30/18 11/30/18 22:50 02:23 04:32 WBC RBC Hgb Hct MCV MCH MCHC RDW RDW Differential Plt Count MPV Immature Gran % (Auto) Neut % (Auto) Lymph % (Auto) Rowan % (Auto) Eos % (Auto) Baso % (Auto) Absolute Neuts (auto) Absolute Lymphs (auto) Total Counted PT INR APTT Sodium Potassium Chloride Carbon Dioxide Anion Gap BUN Creatinine Estim Creat Clear Calc Est GFR (MDRD) Af Amer Est GFR (MDRD) Non-Af BUN/Creatinine Ratio Glucose Calcium Troponin I < 0.015 < 0.015 Triglycerides 89 Cholesterol 170 LDL Cholesterol 95 VLDL Cholesterol 18 HDL Cholesterol 57 11/30/18 11/30/18 11/30/18 04:32 04:32 04:32 WBC 5.4 RBC 3.90 L Hgb 11.5 L Hct 35.9 L MCV 92.1 MCH 29.5 MCHC 32.0 RDW 14.0 RDW Differential 46.3 H Plt Count 214 MPV 11.3 Immature Gran % (Auto) 0.200 Neut % (Auto) 52.4 Lymph % (Auto) 27.1 Rowan % (Auto) 14.2 H Eos % (Auto) 5.4 H Baso % (Auto) 0.7 Absolute Neuts (auto) 2.8 Absolute Lymphs (auto) 1.45 Total Counted Not Reportable PT 13.4 INR 1.0 APTT 28.0 Sodium 141 Potassium 4.3 Chloride 106 Carbon Dioxide 31.0 Anion Gap 4 L BUN 11 Creatinine 0.72 Estim Creat Clear Calc 37.86 Est GFR (MDRD) Af Amer 102 Est GFR (MDRD) Non-Af 84 BUN/Creatinine Ratio 15.2 Glucose 103 Calcium 8.9 Troponin I Triglycerides Cholesterol LDL Cholesterol VLDL Cholesterol HDL Cholesterol Code Visit OBSV E&M: [id number] Observation care discharge
== END 2018-11-30 14:35 | disposition home or self-care (01) ==
LOC: ED 17:14 → PCU 20:30
PROVIDERS: Admitting Provider Hospitalist; Emergency Provider Emergency Medicine; Family Provider Physician Assistant; PCP Physician Assistant; Visit Provider Internal Medicine
DX: R07.89 Other chest pain (principal); R06.02 Shortness of breath; J45.909 Unspecified asthma, uncomplicated; E78.5 Hyperlipidemia, unspecified; F20.0 Paranoid schizophrenia; M19.90 Unspecified osteoarthritis, unspecified site; F32.9 Major depressive disorder, single episode, unspecified; F41.9 Anxiety disorder, unspecified; K21.9 Gastro-esophageal reflux disease without esophagitis; G47.00 Insomnia, unspecified; R91.8 Other nonspecific abnormal finding of lung field; R60.0 Localized edema; I44.4 Left anterior fascicular block; Z79.899 Other long term (current) drug therapy; Z79.51 Long term (current) use of inhaled steroids
CPT/HCPCS: 36415; 71275; 78452; 80048; 80061; 84484; 85025; 85610; 85730; 93005; 93017; 93971; 94640; 96360; 96361; 97162; 97165; 99218; 99285; A9500; J7030; Q9967; A4216; G0378; J2785

== ENCOUNTER 2019-08-18 13:18 | Emergency (ER) | payer MEDICARE, OTHER, SELFPAY ==
[2018-11-29 19:51] VITALS: BMI 18.4
[2019-08-18 13:20] VITALS: BP 137/85; PULSE 82; RESP 16; TEMP 36.4; O2SAT 97; BMI 17.7
[2019-08-18 13:30] VITALS: O2SAT 99
[2019-08-18 13:35] VITALS: BP 146/81; PULSE 78; RESP 15; O2SAT 99
--- NOTE | 2019-08-18 13:54 | ED.DCSUM_ITS ---
History of Present Illness Chief Complaint: Shortness of Breath Informant: Patient Onset: Weeks - 1 Narrative: Worsening mild productive cough for a week with dyspnea. History of asthma, no tobacco history. States symptoms do improve with inhaler however still there. No history of diabetes. Denies wheezing, last use inhaler was prior to arrival which helped her symptoms. No chest pains or abdominal pains. Mild chills. No fever or sweats. No urinary symptoms. No recent vomiting or diarrhea. No history of diabetes. States had bronchitis in the fall has not fully recovered from this. Prior similar symptoms: Yes Past Medical History - Allergies and Home Meds Allergies/Adverse Reactions: Allergies No Known Allergies Allergy (Verified 08/18/19 13:20) Primary Care Physician: Magdalena Archer PA [Primary Care Provider] - Past Medical History: - - Asthma, anxiety, schizophrenia Surgical History: noncontributory Smoking Status: Never smoker Review of Systems General: Denies: Chills, Fever, Sweats Eyes: Denies: Visual changes - bilaterally, Diplopia ENT: Denies: Rhinorrhea, Sore throat Cardiovascular: Denies: Chest pain, Palpitations Respiratory: Reports: Dyspnea, Cough. Denies: Dyspnea on exertion Gastrointestinal: Denies: Abdominal pain, Nausea, Vomiting, Diarrhea, Melena, Hematochezia Genitourinary: Denies: Dysuria, Hematuria, Frequency Musculoskeletal: Denies: Back pain, Extremity Pain Skin: Denies: Rash, Wounds Neurological: Denies: Headache, Weakness, Numbness Physical Exam Vital Signs/Narrative: Vital Signs Temp Pulse Resp BP Pulse Ox 08/18/19 13:35 78 15 146/81 H 99 08/18/19 13:20 97.6 F L 82 16 137/85 H 97 Inital Vital Signs reviewed: Yes General: Well nourished, Well developed, No Acute Distress Head: Normocephalic, Atraumatic Eyes: Perrl, EOMI ENT: Moist mucous membranes, No rhinorrhea Neck: Supple, Nontender Cardiovascular: Regular rate, Regular rhythm, No murmurs Respiratory: No distress, CTA bilaterally, Chest nontender Abdomen: Soft, Nontender, Nondistended, Normal bowel sounds Back: Nontender, Normal Inspection Extremities: Nontender, No edema Skin: Normal color, No rash Neurological: Alert, Oriented x3, Cranial nerves II-XII grossly intact, Normal Strength, Normal Sensation Psychological: Normal affect, Normal Mood Diagnostic/Tx/Re-eval Clinical Impression(s) from Imaging Studies Chest X-Ray 08/18/19 14:07 IMPRESSION: Hyperinflation. Electronically Signed: Jamal Walsh, at 14:22 EDT , Service support , - Medical Decision Making Patient vital signs stable, nontoxic, no respiratory distress. She is day 7 of her illness. With reported improvement with her inhalers and asthma history we will start steroids. Chest x-ray negative. She does have her rescue inhaler at home. With pandemic of Covid and limitations of testing at this time, discuss close monitoring of symptoms return if anything worsening. All questions were answered. ED Disposition - Plan for ED Patient: Disposition: Home or Assisted Living Diagnosis: Viral illness, Asthma exacerbation Instructions: ASTHMA, Acute (Adult), VIRAL SYNDROME (Adult) Prescriptions: predniSONE tablet 60 mg PO DAILY #12 tab Transmission Status: Pending to [id number] Referrals: Magdalena Archer PA [Primary Care Provider] - 3-5 Days if not improving
--- NOTE | 2019-08-18 14:07 | RAD_ITS ---
STUDY: X-RAY CHEST REASON FOR EXAM: Female, 69 years old. Cough, sob TECHNIQUE: Single AP portable view of the chest. COMPARISON: Comparison is made with prior study dated January 07, 2010. FINDINGS: Hyperinflation. Scattered calcified granulomas. There is no demonstrated pleural abnormality. Normal size heart. Normal mediastinum and snehal. Normal visualized pulmonary arteries. Normal visualized aortic arch and descending thoracic aorta. Normal visualized thoracic spine. Normal visualized ribs, clavicles, and shoulders. There is no demonstrated abnormality of the visualized soft tissue structures of the upper abdomen. RAD/Chest 1 View (Portable) IMPRESSION: Hyperinflation. Electronically Signed: Jamal Walsh, at 14:22 EDT , Service support ,
[2019-08-18] MEDS: predniSONE 20 MG Tablet 60 MG PO (14:54)
--- NOTE | 2019-08-18 14:58 | ED.RN ---
DISCHARGE INSTRUCTION GIVEN TO AND REVIEWED WITH PATIENT, PATIENT DENIES QUESTIONS OR CONCERNS AND VOICES UNDERSTANDING OF DISCHARGE INSTRUCTIONS. PT AMBULATES OUT OF ROOM WITHOUT DIFFICULTY.
== END 2019-08-18 14:59 | disposition home or self-care (01) ==
PROVIDERS: Emergency Provider Emergency Medicine; PCP Physician Assistant
DX: J45.901 Unspecified asthma with (acute) exacerbation (principal); B34.9 Viral infection, unspecified; F20.9 Schizophrenia, unspecified; F41.9 Anxiety disorder, unspecified; Z79.51 Long term (current) use of inhaled steroids; Z79.899 Other long term (current) drug therapy
CPT/HCPCS: 71045; 99282

== ENCOUNTER 2020-08-03 12:11 | Outpatient (RCR) | payer MEDICARE, OTHER, SELFPAY ==
[2020-08-03] MEDS: COVID-19 VACC, MRNA(PFIZER)/PF 30 MCG/0.3 ML SYRINGE IM (11:50)
[2020-08-24] MEDS: COVID-19 VACC, MRNA(PFIZER)/PF 30 MCG/0.3 ML SYRINGE IM (11:17)
== END 2020-11-02 23:59 ==
LOC: IMMUN 12:11
PROVIDERS: PCP Physician Assistant; Visit Provider Family Medicine
DX: Z23 Encounter for immunization (principal)
CPT/HCPCS: 0001A; 0002A; 91300

== ENCOUNTER 2022-09-11 08:00 | Outpatient (RCR) | payer MEDICARE, OTHER, SELFPAY ==
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
[2022-09-13 09:19] VITALS: BP 155/84; PULSE 81
--- NOTE | 2022-09-13 10:10 | BH.SGPN.GN ---
Behaviors/Verbalizations/Mental Status: [ ] Client alert and oriented, casually dressed and groomed. Eye contact good. Motor activity appropriate. Speech within normal limits. Affect congruent, mood euthymic and anxious. Thoughts linear, logical, no signs of hallucinations or delusions. Client Response/Progress/Benefit: [] Client responded well to session AEB taking notes throughout and listening attentively to others. Client was attentive throughout group activity discussing famous individuals and how they overcame failure to be successful. Client helped group identify how fear of failure can impact mental health and relationships. Group together identified how fear of failure leads to over-obsessing, not trying, and lack of confidence. Client participated in experiential activity, working with group members to problem solve. Appeared to benefit from increased knowledge of fear of failure. Will continue IOP tx to improve self-confidence, reduce distorted thinking patterns, and reduce avoidance. Narrative Note: []
--- NOTE | 2022-09-13 11:10 | BH.SGPN.GN ---
Behaviors/Verbalizations/Mental Status: [] Client alert and oriented, casually dressed and groomed. Eye contact good. Motor activity appropriate. Speech within normal limits. Affect congruent, mood euthymic and anxious. Thoughts linear, logical, no signs of hallucinations or delusions. Client Response/Progress/Benefit: [] Client responded well to session, engaged in the experiential activity and attentive throughout group processing. Client reported fear of failure has kept client from going to college and being in a relationship. Client completed fear of failure worksheet and was able to identify thoughts and behaviors that reinforce personal fear of failure which client indicated was constant fear itself. Client participated in small group discussion regarding strategies to overcome fear of failure. Identified making amends with past relationships as something she felt she needed to do to overcome fear of failure. Appeared to benefit from increased knowledge of strategies to combat fear of failure and gaining self-awareness. Client will continue IOP tx to increase overall functioning and to reduce anxiety and avoidance. Narrative Note: []
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
--- NOTE | 2022-09-13 12:32 | BH.DR.ITP ---
Initial Treatment Plan Patient Information Visit Information: ADMISSION DATE: EXPECTED LOS: 4-6 weeks Problems/Symptoms Problem #1:: Anxiety Symptom:: Worry, rumination, history of panic attacks. Problem #2:: Lack of primary support Problem #3:: Recent history of delusions of paranoia
--- NOTE | 2022-09-15 09:00 | BH.SGPN.GN ---
Behaviors/Verbalizations/Mental Status: []Pt alert and oriented, neatly dressed and groomed. Eye contact good. Motor activity appropriate. Speech within normal limits. Affect congruent, mood anxious. Thoughts linear, logical, no signs of hallucinations or delusions. Reviewed pt?s symptom tracker, no risk for suicidal ideation, plan, or intent as of 09/15/22 Client Response/Progress/Benefit: []Pt was a passive participant in group session as pt reports feeling anxious to share at times because I don't know what to say. Pt appeared to benefit from connecting with peers and hearing other's progress/insight. Pt shared in previous sessions that getting out of her house and being around others is very beneficial. Pt will continue IOP tx to promote mood stability, monitor medications, and improve daily functioning. Narrative Note: []
--- NOTE | 2022-09-15 10:00 | BH.SGPN.GN ---
Behaviors/Verbalizations/Mental Status: [] Client alert and oriented, neatly dressed and groomed. Eye contact good. Motor activity appropriate. Speech within normal limits. Affect congruent, mood euthymic and anxious. Thoughts linear, logical, no signs of hallucinations or delusions. Client Response/Progress/Benefit: [ ] Client responded well to session, attentive during psychoeducation on SMART goals (Specific, Measurable, Achievable, Realistic, and Time-bound) and engaged in group experiential activity. Participated in interactive discussion with peers in which they worked together to define what a goal is and the benefits of having goals. Group identified benefits as; giving a sense of purpose, improving motivation, and helping reduce negative mental health symptoms. Participated in interactive discussion in which group identified barriers to setting goals and following through with goals. Personal barriers included not feeling worthy, negative self-talk, time, and cognitive distortions such as all or nothing thinking. Client shared how she has been working on a lineworker mental health goal for years and as times where she maintains it and other times where she has to revisit it to work on it again. Benefited from increased awareness of benefits and strategies for goal-setting. Will continue in [facility] tx to improve mood stability, prevent decompensation, and improve daily functioning. Narrative Note: []
--- NOTE | 2022-09-15 11:10 | BH.SGPN.GN ---
Behaviors/Verbalizations/Mental Status: [] Client alert and oriented, casually dressed, appropriately groomed. Eye contact good. Motor activity appropriate. Speech within normal limits. Affect congruent, mood euthymic. Thoughts linear, logical, no signs of hallucinations or delusions. Client Response/Progress/Benefit: [] Client was engaged during discussion and willing to complete the worksheet challenging them to develop a personal SMART goal. Client chose the goal of making amends with a certain person this weekend. Client stated this will benefit them by developing a relationship with someone she loves. Client identified barriers which included her daughter and hoping. Client struggled to come up with solutions during group and indicated she would finish them later today. Client receptive to identifying solutions for these barriers and willing to begin working on this goal. Benefited from this group by developing a short-term SMART goal related to mental health. Will continue IOP tx to regulate emotions, improve daily functioning, and prevent decompensation. Narrative Note: []
--- NOTE | 2022-09-15 14:46 | BH.MTP ---
Master Treatment Plan - Patient Information Program Physician:: Dr. Fink Primary Therapist:: Rama Diamond, [facility] - Psychiatric Diagnoses Psychiatric Diagnoses:: 1. Schizophrenia (F20.0). 2. Generalized anxiety disorder Diagnosis Code(s):: F20.0 - Estimated LOS Estimated LOS (in weeks):: 6 Problem/Goal #1 - Problem/Goal #1 Stated Goal:: Stabilize anxiety level and focus thoughts on reality while increasing ability to function on a daily basis. - Objectives Objective #1 Stated Objective: Client will identify 2-3 coping strategies to use when feeling overwhelmed. Interventions: Therapist and group therapy will help client process triggers to increased symptoms, and then identify ways to manage these feelings and thoughts. Therapist will also work on helping client feel less isolated and understand better behaviors and escalating tendencies. Discharge Criteria: Client will have met this goal when can safely use 1-2 coping strategies when feeling overwhelmed. Objective #2 Stated Objective: Identify current reactions to symptoms and their impact on self and others. Interventions: Help the client identify her emotional and behavioral reactions as well as other consequences of psychotic/paranoid symptoms toward the goal of increasing her understanding of these reactions and how they impact functioning. Discharge Criteria: Will have met the objective when can identify at least 3 current reactions to symptoms and impact on self and others. Objective #3 Stated Objective: Client will learn and implement 2-3 calming skills to reduce overall anxiety and manage anxiety symptoms. Interventions: Therapist and group sessions will help client identify physiological warning signs of anxiety, increase awareness of thoughts that increase anxiety, and identify behaviors that reinforce anxious symptoms. Group and individual counseling will teach client calming skills to help manage anxious symptoms. Discharge Criteria: Client will have achieved this goal when can verbalize at least 2 calming skills and reports skills successfully help reduce anxious symptoms.
--- NOTE | 2022-09-15 15:45 | BH.MDN ---
Multi-Disciplinary Note - Note 60-min Individual Time Started:: 12:10 Date: 09/15/22 Time Stopped:: 13:10
--- NOTE | 2022-09-19 09:05 | BH.SGPN.GN ---
Behaviors/Verbalizations/Mental Status: []Pt alert and oriented, neatly dressed and groomed. Eye contact good. Motor activity appropriate. Speech within normal limits. Affect congruent, mood anxious. Thoughts linear, logical, no signs of hallucinations or delusions. Reviewed pt?s symptom tracker, no risk for suicidal ideation, plan, or intent as of 09/19/22 Client Response/Progress/Benefit: []Pt responded well to session, attentive and receptive to feedback. Pt reports feeling anxious in a good way to be at [facility] today. Pt shared she has been enjoying the program and getting to know other people who are learning to manage their mental health. Pt shared a mental health win and stressor today is that she had to ask for help from her neighbor recently. Pt shared this was hard because she did not want to be a burden but pt can see that her worries were distorted. Pt appeared to benefit from challenging her perspective. Pt will continue IOP tx to promote mood stability, monitor medications, and increase social support. Narrative Note: []
--- NOTE | 2022-09-19 10:15 | BH.SGPN.GN ---
Behaviors/Verbalizations/Mental Status: ?Client alert and oriented, casually dressed and groomed. Eye contact good. Motor activity appropriate. Speech within normal limits. Affect congruent to topics being discussed, mood euthymic and anxious. Thoughts linear, logical, no signs of hallucinations or delusions. Client Response/Progress/Benefit: []Pt engaged in session AEB listening attentively to others and providing insight to group discussion. Pt engaged in activity, able to connect how it can be uncomfortable when things are out of one?s own control. Pt worked with group to identify what things in life can be hard to accept. Group identified things hard to accept as: of a loved one, body image, loss of relationship, mental health diagnosis, other?s behaviors, and past decisions. Pt worked on identifying what personal things are hard to accept for herself, sharing past mistakes and relationships are things she struggles with accepting. Pt seemed to benefit from increased awareness of importance of acceptance. Pt to continue IOP to improve confidence, increase ability to manage sx of anxiety, and prevent decompensation. Narrative Note: []
--- NOTE | 2022-09-20 09:00 | BH.SGPN.GN ---
Behaviors/Verbalizations/Mental Status: []Eye contact is fair to good. Motor activity is appropriate. Appearance is casual. Speech is Appropriate. Mood is euthymic and positive.. Affect is congruent. Thoughts are linear and logical. No evidence of psychosis. Reviewed daily check in sheet and denies any active SI, plan, or intent as of this date. Client Response/Progress/Benefit: []Pt responded well to session, attentive and willing to process with group. Patient reported mental positive as getting up this morning and coming to IOP. Patient reported additional months of positive as starting to feel better and more stable. Patient stated she did not have any current stressor at this time. Benefited from supportive feedback structure of the group. Pt will continue IOP tx to stabilize mood, continue use of skills, and prevent decompensation.
--- NOTE | 2022-09-20 10:10 | BH.SGPN.GN ---
Behaviors/Verbalizations/Mental Status: []Pt alert and oriented, neatly dressed and groomed. Eye contact good. Motor activity appropriate. Speech within normal limits. Affect congruent, mood euthymic. Thoughts linear, logical, no signs of hallucinations or delusions. Client Response/Progress/Benefit: []Pt was a passive participant in group discussions and activity. Attentive during psychoeducation. Interactive discussion on the definition of perspective, how perspective is formed, and why perspective is important in treatment.? Pt along with peers also identified that perspective can either motivate and encourage treatment or be a barrier to receiving help. Pt shared her perspective today is hopeful and positive. Pt feels that she is already getting better since her IOP admission. Pt reports she is benefitting from IOP as she is gaining socialization and healthy coping skills. Will continue in IOP tx to promote mood stability, monitor medications, and increase healthy coping skills. Narrative Note: []
--- NOTE | 2022-09-20 11:15 | BH.SGPN.GN ---
Behaviors/Verbalizations/Mental Status: []Pt alert and oriented, casually dressed and groomed. Eye contact good. Motor activity appropriate. Speech within normal limits. Affect congruent, mood anxious and euthymic. Thoughts linear, logical, no signs of hallucinations or delusions. Client Response/Progress/Benefit: []Pt was attentive and contributed to small group discussion. Pt completed strengths exploration worksheet. Pt able to acknowledge how these strengths are helping pt and can continue to help pt in mental health journey. With some promoting pt able to reflect on how pt?s bravery, enthusiasm, honesty, empathy, and kindness have helped pt in the past and continue to help pt with mental health. Pt worked with group to identify strategies that can help increase utilization of personal strengths and how to challenge one?s perspective in general. Benefited from identifying personal strengths and strategies for enhancing use of identified strengths. Pt to continue IOP tx to prevent decompensation, get support, promote mood stability, and continue to improve consistent skill application. ? Narrative Note: []
--- NOTE | 2022-09-21 09:02 | BH.SGPN.GN ---
Behaviors/Verbalizations/Mental Status: []Eye contact is good. Motor activity is appropriate. Appearance is casual. Speech is Appropriate. Mood is dysthymic. Affect is congruent. Thoughts are linear and logical. No evidence of psychosis. Reviewed daily check in sheet and denies any active SI. Client Response/Progress/Benefit: []Pt responded well to session, attentive and willing to process with group. Pt reports feeling ?tired but okay this morning as pt accidentally slept through her alarm. Shared this was a stressor as she like to give herself plenty of time in the morning and has worsening anxiety sx when feeling rushed. Did well to identify current mental health wins as spending time on the phone trying to figure out fraudulent spending on her credit card, as well as making time for self-care the previous day. Pt will continue IOP tx to prevent decompensation, improve daily functioning, and increase social supports. Narrative Note: []
--- NOTE | 2022-09-21 10:00 | BH.SGPN.GN ---
Behaviors/Verbalizations/Mental Status: [] Eye contact is good. Motor activity is appropriate. Appearance is casual. Speech is Appropriate. Mood is depressed. Affect is congruent. Thoughts are linear and logical. No evidence of psychosis. Pt has some difficulty with reading board and note-taking, however a per assists patient. Client Response/Progress/Benefit: [] Pt participated when prompted during group discussions. Attentive during psychoeducation on Conflict Styles. Attentive during interactive discussion amongst group members in which they discussed perspective on conflict which was reported to be overall negative (yelling, shutting down, being mean, war, arguments, etc). Attentive during discussion on the benefits of conflict and pt along with peers identified several benefits which included; to obtain resolution to an issue, to set boundaries, for one's safety, to improve relationships, to address concerns, and for growth. Engaged with peers during small group assignment in which they identified positives and negatives to each conflict style. Benefited from increased understanding of conflict and ways individuals manage conflict. Will continue in IOP to prevent decompensation, stabilize mood, and to increase support. Narrative Note: []
== END 2022-09-24 23:59 ==
LOC: BHIOP 08:00
PROVIDERS: PCP Physician Assistant; Referring Provider Psychiatry & Neurology Psychiatry; Visit Provider Psychiatry & Neurology Psychiatry
DX: F20.0 Paranoid schizophrenia (principal); F41.1 Generalized anxiety disorder
CPT/HCPCS: S9480; 90837; 90853

== ENCOUNTER 2022-09-25 08:23 | Outpatient (RCR) | payer MEDICARE, OTHER, SELFPAY ==
[2022-09-25 00:51] VITALS: BP 155/84; PULSE 81
--- NOTE | 2022-09-25 09:00 | BH.SGPN.GN ---
Behaviors/Verbalizations/Mental Status: []Eye contact is fair to good. Motor activity is appropriate. Appearance is casual. Speech is Appropriate. Mood is anxious. Affect is congruent. Thoughts are linear and logical. No evidence of psychosis. Reviewed daily check in sheet and denies any active SI, plan, or intent as of this date. Client Response/Progress/Benefit: []Pt responded well to session, attentive and willing to process with group. Pt reports feeling ?frustrated? this morning as she has several physical and cognitive health concerns she is struggling to get answers for. Reports concerns she has been sleepwalking and is hoping to get an appointment scheduled with one of her providers to address these concerns. Pt also indicated uncertainty whether she took her nighttime meds this morning by accident, which is a concern as pt has reported this in the past as well. Staff are going to work with pt to acquire a release to speak with pt?s daughter who is her primary caregiver and support about these concerns. Pt did however do well to identify a mental health win as practicing self-care and getting her hair colored. Benefited from supportive feedback structure of the group. Pt will continue IOP tx to prevent decompensation, improve mood stability, and maintain safety. Narrative Note: []
--- NOTE | 2022-09-25 10:00 | BH.SGPN.GN ---
Behaviors/Verbalizations/Mental Status: []Pt alert and oriented, casually dressed and groomed. Eye contact good. Motor activity appropriate. Speech within normal limits. Affect congruent, mood euthymic. Thoughts linear, logical, no signs of hallucinations or delusions. Client Response/Progress/Benefit: []Pt was an engaged participant AEB listening attentively to others and working cooperatively with group during activity. Attentive during psychoeducation on possible causes to developing and maintain unhealthy coping skills which can impact mental health. Pt participated in interactive discussion identifying common unhealthy coping skills. Able to make connections between experiential activity and importance of having a solid base of internal and external coping skills. Benefited from increased awareness of internal and external coping skills and identifying unhealthy coping skills. Will continue in IOP to stabilize mood, continue use of healthy skills, and prevent decompensation.
--- NOTE | 2022-09-25 11:05 | BH.SGPN.GN ---
Behaviors/Verbalizations/Mental Status: []Pt alert and oriented, neatly dressed and groomed. Eye contact good. Motor activity appropriate. Speech within normal limits. Affect constricted, mood anxious. Pt reports confusion and struggled to keep up during group today. No evidence of paranoia or delusions. Client Response/Progress/Benefit: []Pt responded well to session, taking notes and contributing. Group discussed the different categories of coping skills which included distraction, emotional release, grounding, self-love, and thought challenging.? Pt participated in creating a coping skills ?menu? from the five categories of coping skills. Pt's coping skill menu included: taking care of basic needs, stretching, belly breathing, replacing negative thoughts with realistic messages, and talking to someone. Appeared to benefit from increasing repertoire of healthy coping skills. Will continue IOP tx to monitor mood and medication while improving social support. ? Narrative Note: []
--- NOTE | 2022-09-27 10:10 | BH.SGPN.GN ---
Behaviors/Verbalizations/Mental Status: []Eye contact is good. Motor activity is appropriate. Appearance is casual. Speech is Appropriate. Mood is anxious. Affect is congruent. Thoughts are linear and logical. No evidence of psychosis. Client Response/Progress/Benefit: []Pt was an active participant in group discussion and experiential activity, though remaining mostly passive throughout. Attentive during psychoeducation on resilience. Participated in interactive discussion with peers on the definition of resilience and where it comes from. Group identified that resiliency can be impacted by; past experiences, learned behaviors, and current mental health state. Group also worked together to identify the benefits of being resilient and how it is related to mental health. Able to relate experiential activity of group juggle to topics of resilience. Worked well with peers in small group in which they identified factors that contribute to resilience. Benefited from increased awareness of resilience and the factors that contribute to building resilience. Will continue in IOP to prevent decompensation and further promote mood stability, as well as improve ability to manage daily living stressors. Narrative Note: []
--- NOTE | 2022-09-27 11:10 | BH.SGPN.GN ---
Behaviors/Verbalizations/Mental Status: []Pt alert and oriented, neatly dressed and groomed. Eye contact good. Motor activity appropriate. Speech within normal limits. Affect congruent, mood anxious. Thoughts linear, logical, no signs of hallucinations or delusions. Client Response/Progress/Benefit: []Pt responded well to session AEB completing the resilience worksheet provided. Pt participated in the discussion and worked cooperatively with group to identify strategies to enhance each of the components discussed. Pt reports belief they already use resilience trait of??self-awareness? as pt feels she does well with knowing her warning signs and listening to supports. Pt stated they would like to continue to develop resilience trait of ?making connections.? Pt seemed to benefit from discussing strategies for improving personal resilience and identifying resilience traits pt already possesses. Will continue IOP tx to increase social support, gain healthy coping skills, and monitor mood. Narrative Note: []
--- NOTE | 2022-09-27 11:56 | PCM.BH.PN ---
Progress Note Progress Note: History of Present Illness/Interim History: The patient is a 72-year-old female with a long history of schizophrenia who is seen in follow-up at the [facility] behavioral health IOP program. According to the staff the patient appeared confused at times and there was some concern that she was not taking her meds appropriately. The patient states that she is enjoying the IOP program and feels she is learning skills to help manage her mental health issues. She is particularly enjoying the support of the other people in the program. The patient has been driving her self-care and denies ever getting lost driving here. She denies any problems with memory or recent cognitive issues. She has taken the Cogentin as prescribed and states that it made her saliva much less and decreased it to normal. In addition she states that she feels less stiff and has a easier time walking than before the Cogentin. Her delusions of paranoia remain completely resolved. The patient states that her daughter checks her meds to make sure she takes them in the medications themselves come prepackaged and labeled for the day and the time. She currently complains that her asthma has gotten worse and she has a cough and this is stressing her out. She denies passive thoughts of , suicidal ideation, homicidal ideation, hallucinations or delusions. Current Psychiatric Medications: [] Haldol 10 mg p.o. daily (x30 years); Seroquel 50 mg p.o. nightly (since 6 weeks ago); Prozac 20 mg p.o. daily; temazepam 30 mg p.o. nightly; Cogentin 0.5 mg p.o. twice daily (x2 weeks). Mental Status Examination: [] The patient is a 72-year-old female who appears normal for stated age and is casually dressed and groomed with good hygiene. She is ambulatory with a normal gait and is alert and oriented to person place and time. She is cooperative and pleasant during the interview and has no psychomotor agitation or retardation. Eye contact is fair to good and speech is regular rate and rhythm and fluent with no pressure. Mood is euthymic. Affect is full and normal. Thought process is goal-directed and organized. Thought content: There is no evidence of passive thoughts of , suicidal ideation, plan for suicide, homicidal ideation, hallucinations or delusions. Reality testing is intact. Intelligence is average. Judgment is intact. Impulsivity is moderate. Insight is good. A complete Mini-Mental status exam was performed during the interview and the patient scored a 27 out of 30 which indicates adequate cognitive function and no signs of dementia. Diagnoses: [] 1. Schizophrenia (F20.0) 2. Generalized anxiety disorder 3. Primary support issues 4. EPS side effects which have resolved on Cogentin Plan: [] Patient will continue the IOP program at [facility] as the structure, support, education and group therapy will hopefully prevent worsening of the patient's symptoms. She felt safe during the interview and if it anytime she does not feel safe she will let us know or go to the emergency room. No medication changes were made today. The patient will follow-up with her outpatient providers and I will see the patient in follow-up in a regular basis while she is in the IOP program.
--- NOTE | 2022-09-29 09:05 | BH.SGPN.GN ---
Behaviors/Verbalizations/Mental Status: [] Eye contact is good. Motor activity is appropriate. Appearance is casual. Speech is Appropriate. Mood is anxious. Affect is congruent. Thoughts are linear and logical. No evidence of psychosis. Reviewed daily check in sheet and no reports of suicidal ideations or intent. Client Response/Progress/Benefit: [] Pt participated when prompted. Attentive. Daily symptom tracker notes 08/30 for anxiety. She reports her anxiety is increased due to coughing and trouble breathing. She states that this is impacting her functioning. Staff have been encouraging her to make an appointment with PCP or fleece tier. She states ? they keep telling me they can?t find anything? however she does have an appointment after group with her PCP. Group was supportive and praised her for making the appointment to seek answers which will ultimately help her anxiety and overall functioning. Benefited from group support. Will continue in IOP to increase support and prevent decompensation. Narrative Note: []
--- NOTE | 2022-09-29 10:10 | BH.SGPN.GN ---
Behaviors/Verbalizations/Mental Status: [] Client alert and oriented, neatly dressed and groomed. Eye contact good. Motor activity appropriate. Speech within normal limits. Affect congruent mood euthymic. Thoughts linear, logical, no signs of hallucinations or delusions. Client Response/Progress/Benefit: [] Client connected with topic of Anxiety and participated throughout, providing input and taking notes. Attentive during psychoeducation on different anxiety disorders and participated throughout interactive discussion defining anxiety and identifying cognitive and physical symptoms of anxiety along with safety behaviors. Common cognitive symptoms identified by group included: ?thoughts of dread?, ?mind reading, and fortune telling. Group identified common physical symptoms such as nausea, shakiness, and tightness in chest. Client personally identified that they experience increased energy when anxious. Benefited from increased awareness and insight on anxiety and its impact. Plan is to continue in IOP to increase consistency of healthy coping, challenge negative thought patterns, and prevent decompensation. Narrative Note: []
--- NOTE | 2022-09-29 11:20 | BH.SGPN.GN ---
Behaviors/Verbalizations/Mental Status: [] Client alert and oriented, neatly dressed and groomed. Eye contact good. Motor activity appropriate. Speech within normal limits. Affect congruent, mood euthymic. Thoughts linear, logical, no signs of hallucinations or delusions. Client Response/Progress/Benefit: [] Client was an active participant in group discussion AEB providing contributions throughout group and listening attentively to others. Attentive during psychoeducation on mindfulness and ways to utilize mindfulness techniques to improve anxiety management. The group together practiced guided meditation and 5 senses technique during session. Engaged and attentive during group practicing of skills and discussing their benefit. Appeared to benefit from practicing in the moment coping skills and increasing repertoire of anxiety management skills. Client selected mindfulness menu of wanting to try music and yoga to help combat anxiety. Client will continue IOP tx to promote continued use of healthy coping skills, practice positive self talk, and prevent decompensation. Narrative Note: []
--- NOTE | 2022-10-02 15:48 | BH.DS ---
Discharge Summary - Demographics Date of Admission:: 09/13/22 Discharge Date: 10/02/22
== END 2022-10-02 08:25 | disposition short-term general hospital (02) ==
LOC: BHIOP 08:23
PROVIDERS: PCP Physician Assistant; Referring Provider Psychiatry & Neurology Psychiatry; Visit Provider Psychiatry & Neurology Psychiatry
DX: F20.0 Paranoid schizophrenia (principal); F41.1 Generalized anxiety disorder; R06.02 Shortness of breath; I44.2 Atrioventricular block, complete; I47.21 Torsades de pointes; I50.9 Heart failure, unspecified
CPT/HCPCS: 71045; 80048; 83735; 83880; 84484; 85025; 93005; 96365; 96366; 96375; 99284; S9480; 90832; 90853; A4216

== ENCOUNTER 2022-09-29 16:06 | Emergency (ER) | payer MEDICARE, OTHER, SELFPAY ==
[2022-09-29] VITALS (8 sets, daily range): BP systolic 156–182; BP diastolic 60–88; PULSE 41–70; RESP 11–20; TEMP 36.4; O2SAT 93–100; BMI 19.3
--- NOTE | 2022-09-29 16:52 | EKG12_ITS ---
Test Reason : TORSADES Blood Pressure : / mmHG Vent. Rate : 042 BPM Atrial Rate : 057 BPM P-R Int : 000 ms QRS Dur : 110 ms QT Int : 468 ms P-R-T Axes : 085 075 -35 degrees QTc Int : 390 ms Sinus bradycardia with complete heart block and Junctional bradycardia Incomplete right bundle branch block ST & T wave abnormality, consider inferior ischemia ST & T wave abnormality, consider anterior ischemia Abnormal ECG Confirmed by KJ TIPTON, EAVN ([id number]), migrant leader AVERY KERNS ([id number]) on 10/02/2022 2:38:57 PM Referred By: PARK Confirmed By:OLIVE UNDERWOOD MD
[2022-09-29] MEDS: fentaNYL 100 MCG/2 ML Ampul 50 MCG IV (16:56)
--- NOTE | 2022-09-29 17:00 | EKG12_ITS ---
Test Reason : WENDY/SOB Blood Pressure : / mmHG Vent. Rate : 043 BPM Atrial Rate : 086 BPM P-R Int : 152 ms QRS Dur : 116 ms QT Int : 524 ms P-R-T Axes : 089 -41 041 degrees QTc Int : 442 ms Sinus rhythm with 2nd degree A-V block with 2:1 A-V conduction Left axis deviation Minimal voltage criteria for LVH, may be normal variant ( Blayne product ) Inferior infarct , age undetermined Anterior infarct , age undetermined Abnormal ECG Confirmed by KJ TIPTON, EVAN ([id number]), material expeditor AVERY KERNS ([id number]) on 10/02/2022 2:37:22 PM Referred By: AVELINO Confirmed By:OLIVE UNDERWOOD MD
--- NOTE | 2022-09-29 17:07 | ED.VIS.DYS ---
HPI History of Present Illness Chief Complaint: Shortness of Breath Informant: patient and family (daughter) Onset/Context/Timing Onset: Weeks (2-3) Context: gradual and onset Timing: Intermittent Quality: Positive for Dyspnea on exertion and Orthopnea Current Severity: Moderate Maximum Severity: Moderate Worsened by: Exertion and Lying flat Relieved by: Rest Associated Symptoms Chest Pain: Positive for None Narrative Narrative: Patient went to her PCP today because for the last several weeks she has been getting dyspneic and swollen legs. They apparently diagnosed some type of heart block as an outpatient and sent her here to the ER. Patient has had no syncopal episodes or near syncope. She states she had a couple twinges of chest discomfort 2 weeks ago but none since. She denies any palpitations. She denies any history of heart problems in the past. Patient states she is a paranoid schizophrenic. She states a month ago or so, she was hearing voices and a bit paranoid about some things, and her haloperidol was doubled from 5 mg to 10 mg per evening. She also had Seroquel added. She states she has been doing better since then and following with her psychiatrist who has been seeing her for several decades. [facility] Medical History Asthma Depression Generalized anxiety disorder Osteoarthritis Schizophrenia Home Medications budesonide-formoterol HFA 160 mcg-4.5 mcg/actuation aerosol inhaler 2 puff inhalation BID 11/29/18 [History Last Taken 08/18/19] calcium carbonate-vitamin D3 600 mg-125 unit tablet 1 ea PO DAILY SUPPLEMENT 11/29/18 [History Last Taken 08/18/19] fluoxetine 20 mg capsule 20 mg PO DAILY MENTAL HEALTH 11/29/18 [History Last Taken 08/18/19] glucosamine BLz-G1-Bhzmqycbk raji 1,500 mg-400 unit-100 mg tablet 1 ea PO DAILY SUPPLEMENT 11/29/18 [History Last Taken 08/18/19] ipratropium bromide 42 mcg (0.06 %) nasal spray 2 spray NASAL DAILY PRN PRN Shortness Of Breath 11/29/18 [History Last Taken 08/18/19] levocetirizine 5 mg tablet 5 mg PO DAILY ALLERGIES 11/29/18 [History Last Taken 08/18/19] montelukast 10 mg tablet 10 mg PO QHS ALLERGIES 11/29/18 [History Last Taken 08/17/19] multivit with uiodpjgk-mjuh-UX-lutein 8 mg iron-400 mcg-300 mcg tablet 1 ea PO DAILY SUPPLEMENT 11/29/18 [History Last Taken 08/18/19] omeprazole 20 mg capsule,delayed release 20 mg PO DAILY ACID REFLUX 11/29/18 [History Last Taken 08/18/19] temazepam 30 mg capsule 30 mg PO QHS PRN PRN Sleep 11/29/18 [History Last Taken 11/28/18] benztropine 0.5 mg tablet 0.5 mg PO BID 30 days #60 tabs 09/13/22 [Rx Last Taken Unknown] haloperidol 10 mg tablet 10 mg PO QHS 09/13/22 [History Last Taken Unknown] quetiapine 50 mg tablet (Seroquel) 50 mg PO QHS 09/13/22 [History Last Taken Unknown] Allergy/AdvReac Type Severity Reaction Status Date / Time No Known Allergies Allergy Verified 09/29/22 16:06 Family History Father CAD (coronary artery disease) Hypertension Sister Hypertension Surgical History S/P appendectomy S/P nasal septoplasty S/P tubal ligation S/P unilateral salpingo-oophorectomy Social History Smoking Status: Never smoker ROS ROS ED Constitutional Constitutional ED: Reports malaise and weakness; Denies chills or fever(s) Eyes Eyes: Denies change in vision or diplopia ENT ENT ED: Denies rhinorrhea or sore throat Cardiovascular Cardiovascular: Reports orthopnea; Denies chest pain or palpitations Respiratory/Chest Respiratory/Chest: Reports dyspnea, dyspnea on exertion and orthopnea; Denies cough Gastrointestinal Gastrointestinal: Denies abdominal pain, diarrhea, nausea or vomiting Genitourinary Genitourinary ED: Denies dysuria or hematuria Musculoskeletal Musculoskeletal: Denies back pain or neck pain Integumentary Denies abscess or rash Neurologic Neurologic: Denies headache(s), paresthesias or weakness Psychiatric Psychiatric: Denies anxiety or suicidal thoughts EXAM Physical Exam Const Vital Signs: 09/29/22 16:06 09/29/22 16:16 09/29/22 16:16 Temperature 97.5 F L Temperature Source Temporal Pulse Rate 41 L 45 L Respiratory Rate 20 H 11 L Respiratory Effort Normal Non-Labored Respiratory Depth Normal Respiratory Pattern Normal Blood Pressure 182/86 H 181/88 H Blood Pressure Mean 118 119 Pulse Ox 99 100 Oxygen Delivery Method Room Air Room Air Room Air Oxygen Flow Rate (L/min) 09/29/22 17:06 09/29/22 17:29 09/29/22 17:44 Temperature 97.6 F L Temperature Source Pulse Rate 63 70 70 Respiratory Rate 16 14 18 Respiratory Effort Respiratory Depth Respiratory Pattern Blood Pressure 156/69 H 167/61 H 179/67 H Blood Pressure Mean 98 96 104 Pulse Ox 99 97 93 Oxygen Delivery Method Nasal Cannula Nasal Cannula Oxygen Flow Rate (L/min) 4 4 Positive well nourished and well developed General Appearance ED: well developed and NAD HEENT Reports moist mucous membranes normocephalic and atraumatic Eyes PERRL and EOMs intact bilaterally Neck full ROM and supple Neck Narrative: +JVD Resp normal respiratory effort and clear to auscultation bilaterally Cardio regular rate, regular rhythm and peripheral pulses 2+ throughout Heart Sounds: murmur systolic III/ crescendo-decrescendo left sternal border GI non-tender and non-distended Auscultation: normoactive bowel sounds Palpation: soft Back/Spine no CVA tenderness General Back: other FROM Extremity normal to inspection General Extremety ED: Yes edema; Negative for pulses abnormal or tenderness General Extremity: edema bilateral lower extremity Details: moderate (symmetric); Negative for pulses abnormal Neuro oriented x3, CN's II-XII intact bilaterally and no sensory deficits noted Sensorium / Orientation: awake and alert Motor Exam: strength 5/5 throughout Psych mental status grossly normal Skin no rashes or lesions noted and no wounds MDM MDM MDM Narrative Medical decision making narrative: I examined the patient, and reviewed her initial EKG, which appears to show a 2-1 conduction, high degree block. Her rate was in the 40s and she was sitting, appearing well and conversing with me. While I was discussing the likelihood of admission and discussing with cardiology, her rhythm suddenly changed and she went into polymorphic ventricular tachycardia, states she felt lightheaded and suddenly lost consciousness. Staff responded to the monitor going off immediately, while a staff member went and got the crash cart. In the meantime, I immediately light her supine and lift her legs up to perform partial modified Valsalva maneuver, this did not result in resolution of the dysrhythmia so I performed a blunt sternal blow with my fist, this also did not result in resolution, checking her pulses she had none so we started CPR immediately and placed her on an oxygen mask. This went on for about 20 seconds until we got pads on her and turned on the defibrillator. Upon clearing the patient clinically and charging up the defibrillator, it was evident that the ventricular tachycardia had resolved, and the patient started waking up and had a spontaneous pulse. We moved her to a larger resuscitation room that had more resources. The patient regained consciousness and full neurologic function as she was before the event, without other complication. Repeat EKG shows that she is in complete heart block at a rate of 42, but for the most part she maintained in the 30s and conscious, alert and oriented while lying supine. I gave her a dose of fentanyl preparing for transcutaneous pacing, but I am holding off on doing that since I tried pacer at a rate of 40 and she was having significant pain, since she is keenly alert in the 30s right now. Magnesium infusion is ordered. I discussed with Dr. Anderson with cardiology, he states at this time we do not have the ability to do pacemakers and he recommends transferring the patient to a facility that has EP cardiology capabilities. The patient and her daughter choose [facility] in [place] first. Accepted there by Dr. Ledbetter. After this discussion, the patient's chest x-ray was performed, 1 view my interpretation shows pulmonary congestion and a left pleural effusion that is relatively small. History & Record Review Additional record(s) reviewed:: Prior labs Lab Data Attestation: I reviewed the patient's lab results. Labs: Laboratory Results - last 24 hr 09/29/22 09/29/22 09/29/22 16:25 16:25 16:25 WBC 9.1 RBC 3.55 L Hgb 10.7 L Hct 32.5 L MCV 91.5 MCH 30.1 MCHC 32.9 RDW Std Deviation 47.5 H RDW Coeff of Jeff 14.0 Plt Count 284 MPV 11.6 Immature Gran % (Auto) 0.500 Neut % (Auto) 71.8 H Lymph % (Auto) 16.8 L Grayson % (Auto) 9.5 Eos % (Auto) 1.0 Baso % (Auto) 0.4 Absolute Neuts (auto) 6.6 Absolute Lymphs (auto) 1.54 Nucleated RBC % 0 Sodium 133 L Potassium 4.2 Chloride 101 Carbon Dioxide 23.0 Anion Gap 9 BUN 17 Creatinine 0.73 Estim Creat Clear Calc 37.32 Est GFR (MDRD) Af Amer 100 Est GFR (MDRD) Non-Af 83 BUN/Creatinine Ratio 23.3 H Glucose 91 Calcium 8.9 Troponin I High Sens 23 B-Natriuretic Peptide 284.7 H Rhythm Strip Rhythm Strip: 2:1 block Rate: 47 Ectopy: None EKG Initial EKG: Attestation: I personally reviewed and interpreted this EKG as follows: Interpretation: Sinus Rhythm, No Acute Injury Pattern and AV Block (2nd deg mobitz) Follow-up EKG: Attestation: I personally reviewed and interpreted this EKG as follows: Interpretation: No Acute Injury Pattern and AV Block (3rd deg) Prior: Changed Management Discussion w/another healthcare provider: Household Appliance Repairer (cardiology Dr. Anderson; Medicine Dr. Ledbetter [facility]) Procedures Other Procedures Procedure(s): ACLS supervision, see above Critical Care Time Critical Care Time: Yes Critical care time (excluding procedures): 30-74 minutes (35 min, not including procedure time), Including time spent:, Discussing w/Patient &/or Family/Chief Design Engineer, Discussing w/Consultants, Arranging Admission or Transfer and Performing Direct Patient Care at Bedside Discharge Plan Triage Chief Complaint: Shortness of Breath ED Provider: Hai Arredondo Dx/Rx/DC Orders Clinical Impression: Third degree heart block, Torsades de pointes, Acute CHF Prescriptions: No Action temazepam 30 MG capsule 30 mg PO QHS PRN PRN (Reason: Sleep) omeprazole 20 MG capsule 20 mg PO DAILY montelukast 10 MG tablet 10 mg PO QHS ipratropium bromide 1 SPRAY spray,non-aerosol 2 spray NASAL DAILY PRN PRN (Reason: Shortness Of Breath) fluoxetine 20 MG capsule 20 mg PO DAILY calcium carbonate-vitamin D3 1 EACH tablet 1 ea PO DAILY Rx Instructions: budesonide-formoterol 1 INHALER inhaler 2 puff inhalation BID levocetirizine 5 MG tablet 5 mg PO DAILY mryzdjya-jea-vomu-FA-lutein 1 EACH tablet 1 ea PO DAILY odamripapxu-U9-Wfmlarzgx serr 1 EACH tablet 1 ea PO DAILY haloperidol [Haldol] 10 mg Tablet 10 mg PO QHS quetiapine [Seroquel] 50 mg Tablet 50 mg PO QHS benztropine 0.5 mg tablet 0.5 mg PO BID 30 Days Qty: 60 0RF Primary Care Provider: Magdalena Archer Referrals: Magdalena Archer PA [Primary Care Provider] - Disposition Disposition: Acute Care Hospital Discharge Location: [facility]
[2022-09-29 17:09] LABS: Absolute Lymphocyte Count 1.54 X10^3/uL (0.83-4.51); Absolute Neutrophil Count 6.6 X10^3/uL (2.0-7.7); Basophil# 0.04 X10^3/uL; Basophil% 0.4 % (0-1); Eosinophil# 0.09 X10^3/uL; Hematocrit 32.5 % (37-47); Hemoglobin 10.7 g/dL (12.0-15.0); Lymphocyte # 1.54 X10^3/ul (0.83-4.51); Lymphocyte % 16.8 % (19-41); Mean Corp Hgb Conc 32.9 g/dL (32-36); Mean Corpuscular Hgb 30.1 pg (27.0-32.0); Mean Corpuscular Volume 91.5 fL (81-99); Mean Platelet Vol. 11.6 fl (6.2-12.0); Monocyte# 0.87 X10^3/uL; Monocyte% 9.5 % (0-10); NRBC Flagged by Analyzer 0 % (0-5); Neutrophil # 6.55 X10^3/uL (2.7-7.7); Neutrophil % 71.8 % (47-70); Platelet Count 284 K/mm3 (150-450); RBC Distribution Width SD 47.5 fl (35.1-43.9); Red Blood Count 3.55 M/mm3 (4.2-5.4); White Blood Count 9.1 K/mm3 (4.4-11.0)
[2022-09-29 17:30] LABS: BNP,B-Type NATRIURETIC PEPTIDE 284.7 pg/mL (0-100)
[2022-09-29 17:36] LABS: Anion Gap 9 (5-15); BUN 17 mg/dL (7-18); BUN/Creat Ratio 23.3 RATIO (10-20); Calcium,Total 8.9 mg/dL (8.5-10.1); Chloride 101 mmol/L (98-107); Creatinine, Serum 0.73 mg/dL (0.55-1.02); EST Glomerular Filtration Rate 83 mL/min (>60); Est Glom Filt Rate - Afr Amer 100 mL/min (>60); Estimated Creatinine Clearance 37.32 ml/min; Glucose 91 mg/dL (74-106); Potassium 4.2 mmol/L (3.5-5.1); Sodium Level 133 mmol/L (136-145); Troponin-I HS (w/2H Reflex) 23 pg/mL (3.0-54.0)
--- NOTE | 2022-09-29 17:40 | RAD_ITS ---
INDICATION: Chest pain EXAMINATION/TECHNIQUE: X-RAY - XR Chest 1 View COMPARISON: 08/18/2019 FINDINGS: LUNGS: Bilateral patchy lung infiltrates. Left greater than right pleural effusions. MEDIASTINUM AND CARDIOVASCULAR STRUCTURES: Cardiac silhouette not enlarged. Central airways and mediastinal contour are unremarkable. RAD/Chest 1 View (Portable) IMPRESSION: Multifocal pneumonia and bilateral pleural effusions. Electronically Signed: Aayush Esteban MD at 17:57 EDT ,
[2022-09-29 18:15] LABS: Magnesium 2.5 mg/dL (1.6-2.6)
[2022-09-29 19:03] LABS: Reflex Troponin-HS? (from REC) Y
[2022-09-29 19:43] LABS: Troponin-I HS 28 pg/mL (3.0-54.0)
== END 2022-09-29 20:10 | disposition short-term general hospital (02) ==
PROVIDERS: Emergency Provider Emergency Medicine; PCP Physician Assistant; Visit Provider Emergency Medicine
DX: I44.2 Atrioventricular block, complete (principal); I50.9 Heart failure, unspecified; I47.21 Torsades de pointes; J90 Pleural effusion, not elsewhere classified; I45.9 Conduction disorder, unspecified; J45.909 Unspecified asthma, uncomplicated
CPT/HCPCS: 71045; 80048; 83735; 83880; 84484; 85025; 93005; 96365; 96366; 96375; 99284; A4216

== ENCOUNTER 2022-10-19 14:22 | Observation (INO) | payer MEDICARE, OTHER, SELFPAY ==
[2022-10-19] VITALS (11 sets, daily range): BP systolic 103–135; BP diastolic 56–94; PULSE 61–81; RESP 16–18; TEMP 36.7–36.9; O2SAT 98–100; BMI 17.9; BMI 17.1
--- NOTE | 2022-10-19 15:07 | EKG12_ITS ---
Test Reason : Blood Pressure : / mmHG Vent. Rate : 089 BPM Atrial Rate : 069 BPM P-R Int : 000 ms QRS Dur : 148 ms QT Int : 448 ms P-R-T Axes : 091 -37 -45 degrees QTc Int : 545 ms Ventricular-paced rhythm Abnormal ECG Confirmed by HEMANTH TIPTON, DESIREE ([id number]), tape editor AVERY KERNS ([id number]) on 10/20/2022 1:28:46 PM Referred By: PRESTON Confirmed By:DESIREE SAXENA MD
--- NOTE | 2022-10-19 15:15 | EDS_ITS ---
HPI History of Present Illness Chief Complaint: Shortness of Breath Informant: patient Onset/Context/Timing Onset: Weeks Context: gradual Timing: Continuous Quality: Positive for Dyspnea on exertion Worsened by: Exertion Relieved by: Nothing Associated Symptoms cough, rhinorrhea, fever and sore throat; Negative for post nasal drip, ear pain or sweats Chest Pain: Positive for None Narrative Narrative: Patient presents with shortness of breath that has been getting worse over the past few weeks. Patient states it is gotten worse over the last 2 to 3 days. Patient states her breathing is worse with ambulation and exertion. Patient states nothing makes it better. Patient states she is coughing up some sputum but does not know what color it is. Patient admits to recent fever of 101.8. Patient also admits to some rhinorrhea and sore throat. Patient states she had a pacemaker placed recently and had pneumonia while she was in the hospital after that. Patient completed her antibiotics and started to feel worse after she completed the antibiotics. PE Risk Factors: Positive for Recent surgery [facility] Medical History (Updated 10/19/22 @ 18:[address] Savage Bustillos, ) Asthma Depression Generalized anxiety disorder Osteoarthritis Schizophrenia Home Medications budesonide-formoterol HFA 160 mcg-4.5 mcg/actuation aerosol inhaler 2 puff inhalation BID 11/29/18 [History Last Taken 08/18/19] calcium carbonate-vitamin D3 600 mg-125 unit tablet 1 ea PO DAILY SUPPLEMENT 11/29/18 [History Last Taken 08/18/19] fluoxetine 20 mg capsule 20 mg PO DAILY MENTAL HEALTH 11/29/18 [History Last Taken 08/18/19] glucosamine [id number]-Bjnhqzmce raji 1,500 mg-400 unit-100 mg tablet 1 ea PO DAILY SUPPLEMENT 11/29/18 [History Last Taken 08/18/19] ipratropium bromide 42 mcg (0.06 %) nasal spray 2 spray NASAL DAILY PRN PRN Shortness Of Breath 11/29/18 [History Last Taken 08/18/19] levocetirizine 5 mg tablet 5 mg PO DAILY ALLERGIES 11/29/18 [History Last Taken 08/18/19] montelukast 10 mg tablet 10 mg PO QHS ALLERGIES 11/29/18 [History Last Taken 08/17/19] multivit with otmfddhd-llxa-DN-lutein 8 mg iron-400 mcg-300 mcg tablet 1 ea PO DAILY SUPPLEMENT 11/29/18 [History Last Taken 08/18/19] omeprazole 20 mg capsule,delayed release 20 mg PO DAILY ACID REFLUX 11/29/18 [History Last Taken 08/18/19] temazepam 30 mg capsule 30 mg PO QHS PRN PRN Sleep 11/29/18 [History Last Taken 11/28/18] quetiapine 50 mg tablet (Seroquel) 50 mg PO QHS 09/13/22 [History Last Taken Unknown] albuterol sulfate 90 mcg/actuation aerosol inhaler 2 puff inhalation Q4H PRN PRN sob 10/19/22 [History Last Taken Unknown] amoxicillin 875 mg-potassium clavulanate 125 mg tablet 875 mg PO Q12H #20 TABLETS 10/19/22 [Rx Last Taken Unknown] aspirin 81 mg capsule 81 mg PO DAILY 10/19/22 [History Last Taken Unknown] azithromycin 250 mg tablet 250 mg PO DAILY #4 TABLETS 10/19/22 [Rx Last Taken Unknown] furosemide 40 mg tablet 40 mg PO BID 10/19/22 [History Last Taken Unknown] losartan 50 mg tablet 50 mg PO DAILY 10/19/22 [History Last Taken Unknown] metoprolol succinate 100 mg tablet,extended release 24 hr 100 mg PO BID 10/19/22 [History Last Taken Unknown] potassium chloride 10 mEq capsule,extended release 20 meq PO DAILY #20 caps 10/19/22 [Rx Last Taken Unknown] Allergy/AdvReac Type Severity Reaction Status Date / Time grass pollen Allergy Itching Verified 10/19/22 14:28 Family History Father CAD (coronary artery disease) Hypertension Sister Hypertension Surgical History (Updated 10/19/22 @ 15:[address] Savage Bustillos DO) S/P appendectomy S/P nasal septoplasty S/P placement of cardiac pacemaker S/P tubal ligation S/P unilateral salpingo-oophorectomy Social History Smoking Status: Never smoker ROS ROS ED Constitutional Constitutional ED: Reports fever(s); Denies chills Eyes Eyes: Denies blurry vision or change in vision ENT ENT ED: Reports rhinorrhea and sore throat Cardiovascular Cardiovascular: Denies chest pain or palpitations Respiratory/Chest Respiratory/Chest: Reports cough and dyspnea Gastrointestinal Gastrointestinal: Denies melena, nausea or vomiting Genitourinary Genitourinary ED: Denies dysuria or hematuria Musculoskeletal Musculoskeletal: Reports back pain; Denies neck pain Integumentary Denies abscess or rash Neurologic Neurologic: Denies headache(s) or weakness Allergic/Immunologic Allergic/Immunologic ED: Denies mouth swelling or urticaria EXAM Physical Exam Const Vital Signs: 10/19/22 14:25 10/19/22 14:54 10/19/22 16:01 Temperature 98.1 F Temperature Source Temporal Pulse Rate 81 Pulse Rate [Lying] Pulse Rate [Sitting (for 1 minute prior to obtaining)] Pulse Rate [Standing (for 1 minute prior to obtaining)] Respiratory Rate 18 Respiratory Effort Normal Non-Labored Respiratory Depth Normal Respiratory Pattern Normal Blood Pressure 103/64 Blood Pressure [Lying] Blood Pressure [Sitting (for 1 minute prior to obtaining)] Blood Pressure [Standing (for 1 minute prior to obtaining)] Blood Pressure Mean 77 Blood Pressure Mean [Lying] Blood Pressure Mean [Sitting (for 1 minute prior to obtaining)] Blood Pressure Mean [Standing (for 1 minute prior to obtaining)] Pulse Ox 100 99 Oxygen Delivery Method Nasal Cannula Nasal Cannula Nasal Cannula Oxygen Flow Rate (L/min) 2 2 2 10/19/22 16:01 10/19/22 16:02 10/19/22 16:21 Temperature 98.3 F Temperature Source Oral Pulse Rate 75 78 Pulse Rate [Lying] Pulse Rate [Sitting (for 1 minute prior to obtaining)] Pulse Rate [Standing (for 1 minute prior to obtaining)] Respiratory Rate 18 16 Respiratory Effort Respiratory Depth Respiratory Pattern Normal Blood Pressure 122/60 H Blood Pressure [Lying] Blood Pressure [Sitting (for 1 minute prior to obtaining)] Blood Pressure [Standing (for 1 minute prior to obtaining)] Blood Pressure Mean 80 Blood Pressure Mean [Lying] Blood Pressure Mean [Sitting (for 1 minute prior to obtaining)] Blood Pressure Mean [Standing (for 1 minute prior to obtaining)] Pulse Ox 100 Oxygen Delivery Method Nasal Cannula Nasal Cannula Oxygen Flow Rate (L/min) 2 2 10/19/22 17:24 10/19/22 17:30 10/19/22 18:30 Temperature Temperature Source Pulse Rate 64 Pulse Rate [Lying] Pulse Rate [Sitting (for 1 minute prior to obtaining)] Pulse Rate [Standing (for 1 minute prior to obtaining)] Respiratory Rate Respiratory Effort Respiratory Depth Respiratory Pattern Blood Pressure 109/85 H 112/63 112/56 L Blood Pressure [Lying] Blood Pressure [Sitting (for 1 minute prior to obtaining)] Blood Pressure [Standing (for 1 minute prior to obtaining)] Blood Pressure Mean 93 77 73 Blood Pressure Mean [Lying] Blood Pressure Mean [Sitting (for 1 minute prior to obtaining)] Blood Pressure Mean [Standing (for 1 minute prior to obtaining)] Pulse Ox 100 99 100 Oxygen Delivery Method Nasal Cannula Oxygen Flow Rate (L/min) 2 10/19/22 19:15 10/19/22 20:13 10/19/22 20:35 Temperature Temperature Source Pulse Rate Pulse Rate [Lying] 63 Pulse Rate [Sitting (for 1 minute prior to obtaining)] 67 Pulse Rate [Standing (for 1 minute prior to obtaining)] 61 Respiratory Rate Respiratory Effort Respiratory Depth Respiratory Pattern Blood Pressure 116/64 119/69 Blood Pressure [Lying] 135/94 H Blood Pressure [Sitting (for 1 minute prior to obtaining)] 134/82 H Blood Pressure [Standing (for 1 minute prior to obtaining)] 129/68 H Blood Pressure Mean 81 85 Blood Pressure Mean [Lying] 107 Blood Pressure Mean [Sitting (for 1 minute prior to obtaining)] 99 Blood Pressure Mean [Standing (for 1 minute prior to obtaining)] 88 Pulse Ox 98 Oxygen Delivery Method Nasal Cannula Oxygen Flow Rate (L/min) 2 10/19/22 21:08 Temperature Temperature Source Pulse Rate Pulse Rate [Lying] Pulse Rate [Sitting (for 1 minute prior to obtaining)] Pulse Rate [Standing (for 1 minute prior to obtaining)] Respiratory Rate Respiratory Effort Respiratory Depth Respiratory Pattern Blood Pressure Blood Pressure [Lying] Blood Pressure [Sitting (for 1 minute prior to obtaining)] Blood Pressure [Standing (for 1 minute prior to obtaining)] Blood Pressure Mean Blood Pressure Mean [Lying] Blood Pressure Mean [Sitting (for 1 minute prior to obtaining)] Blood Pressure Mean [Standing (for 1 minute prior to obtaining)] Pulse Ox Oxygen Delivery Method Nasal Cannula Oxygen Flow Rate (L/min) 2 Positive well nourished and well developed General Appearance ED: well developed and NAD HEENT Reports moist mucous membranes Neck supple and no JVD Resp normal respiratory effort Auscultation: rhonchi and wheezes Cardio regular rate, regular rhythm and no murmurs GI normal to inspection, nondistended, normoactive bowel sounds and non-tender Palpation: soft Extremity normal to inspection General Extremety ED: Negative for edema or tenderness General Extremity: Negative for edema Neuro oriented x3, CN's II-XII intact bilaterally and no sensory deficits noted Sensorium / Orientation: alert Motor Exam: strength 5/5 throughout Psych mental status grossly normal Skin no rashes or lesions noted MDM MDM MDM Narrative Medical decision making narrative: Differential diagnosis includes pneumonia, pneumothorax, pulmonary embolism, congestive heart failure, cardiac dysrhythmia, and cardiac ischemia. Chest x- ray will be obtained to assess for pneumonia, congestive heart failure, pneumothorax. CBC will be obtained to assess for leukocytosis and anemia. Basic metabolic profile will be obtained to assess for electrolyte abnormality and renal function. High-sensitivity troponin will be obtained to assess for cardiac ischemia. Urinalysis will be obtained to assess for urinary tract infection. COVID-19 rapid antigen will be obtained to assess for COVID-19 infection. Influenza A and influenza B antigens will be obtained to assess for influenza infection. EKG will be obtained to assess for cardiac dysrhythmia and cardiac ischemia. Lab Data Attestation: I reviewed the patient's lab results. Lab results narrative: CBC shows a mild anemia with a hemoglobin of 9.5 and hematocrit 30.7. Platelets were normal. Basic metabolic profile showed a mild hyponatremia of 130 and a potassium of 3.3. Chloride was also slightly low at 96. High-sensitivity troponin was reviewed and was normal. COVID-19 rapid antigen was reviewed and was negative. Influenza A and influenza B antigens were reviewed and were negative. Labs: Laboratory Results - last 24 hr 10/19/22 10/19/22 10/19/22 16:15 16:15 17:12 WBC Cancelled 9.8 Corrected WBC Cancelled RBC Cancelled 3.22 L Hgb Cancelled 9.5 L Hct Cancelled 30.7 L MCV Cancelled 95.3 MCH Cancelled 29.5 MCHC Cancelled 30.9 L RDW Std Deviation Cancelled 53.1 H RDW Coeff of Jeff Cancelled 15.3 H Plt Count Cancelled 159 MPV Cancelled 11.2 Immature Gran % (Auto) Cancelled 0.500 Neut % (Auto) Cancelled 84.8 H Lymph % (Auto) Cancelled 6.4 L [place] % (Auto) Cancelled 8.1 Eos % (Auto) Cancelled 0.0 Baso % (Auto) Cancelled 0.2 Absolute Neuts (auto) Cancelled 8.3 H Absolute Lymphs (auto) Cancelled 0.63 L Total Counted Cancelled Neutrophils % (Manual) Cancelled Band Neutrophils % Cancelled Lymphocytes % (Manual) Cancelled Monocytes % (Manual) Cancelled Eosinophils % (Manual) Cancelled Basophils % (Manual) Cancelled Metamyelocytes % Cancelled Myelocytes % Cancelled Promyelocytes % Cancelled Blast Cells % Cancelled Plasma Cell % (Manual) Cancelled Other Cells % Cancelled Nucleated RBC % Cancelled 0 Nucleated RBCs/100 WBC Cancelled Differential Comment Cancelled Diff Path Review Cancelled Hypersegmented Neuts Cancelled Atypical Lymphocytes Cancelled Reactive Lymphocytes Cancelled Smudge Cells Cancelled Toxic Granulation Cancelled Toxic Vacuolation Cancelled Dohle Bodies Cancelled Micaela Rods Cancelled Platelet Estimate Cancelled Plt Morphology Comment Cancelled RBC Morphology Cancelled Polychromasia Cancelled Hypochromasia Cancelled Poikilocytosis Cancelled Basophilic Stippling Cancelled Anisocytosis Cancelled Microcytosis Cancelled Macrocytosis Cancelled Spherocytes Cancelled Sickle Cells Cancelled Target Cells Cancelled Tear Drop Cells Cancelled Ovalocytes Cancelled Stomatocytes Cancelled [place] Bodies Cancelled Bob Cells Cancelled Bite Cells Cancelled Crenated Cell Cancelled Acanthocytes (Spur) Cancelled Rouleaux Cancelled Schistocytes Cancelled Sodium 130 L Potassium 3.3 L Chloride 96 L Carbon Dioxide 27.0 Anion Gap 7 BUN 15 Creatinine 0.71 Estim Creat Clear Calc 34.60 Est GFR (MDRD) Af Amer 104 Est GFR (MDRD) Non-Af 86 BUN/Creatinine Ratio 21.2 H Glucose 126 H Calcium 8.6 Troponin I High Sens 19 B-Natriuretic Peptide 10/19/22 17:12 WBC Corrected WBC RBC Hgb Hct MCV MCH MCHC RDW Std Deviation RDW Coeff of Jeff Plt Count MPV Immature Gran % (Auto) Neut % (Auto) Lymph % (Auto) [place] % (Auto) Eos % (Auto) Baso % (Auto) Absolute Neuts (auto) Absolute Lymphs (auto) Total Counted Neutrophils % (Manual) Band Neutrophils % Lymphocytes % (Manual) Monocytes % (Manual) Eosinophils % (Manual) Basophils % (Manual) Metamyelocytes % Myelocytes % Promyelocytes % Blast Cells % Plasma Cell % (Manual) Other Cells % Nucleated RBC % Nucleated RBCs/100 WBC Differential Comment Diff Path Review Hypersegmented Neuts Atypical Lymphocytes Reactive Lymphocytes Smudge Cells Toxic Granulation Toxic Vacuolation Dohle Bodies Micaela Rods Platelet Estimate Plt Morphology Comment RBC Morphology Polychromasia Hypochromasia Poikilocytosis Basophilic Stippling Anisocytosis Microcytosis Macrocytosis Spherocytes Sickle Cells Target Cells Tear Drop Cells Ovalocytes Stomatocytes [place] Bodies [place] Cells Bite Cells Crenated Cell Acanthocytes (Spur) Rouleaux Schistocytes Sodium Potassium Chloride Carbon Dioxide Anion Gap BUN Creatinine Estim Creat Clear Calc Est GFR (MDRD) Af Amer Est GFR (MDRD) Non-Af BUN/Creatinine Ratio Glucose Calcium Troponin I High Sens B-Natriuretic Peptide 386.5 H Radiography Diagnostic Testing: Clinical Impression(s) from Imaging Studies Chest X-Ray 10/19/22 15:35 IMPRESSION: Slight interval worsening in multifocal pneumonia. Improved trace left pleural effusion. Resolved right pleural effusion. Electronically Signed: Robin Hayden MD at 15:53 EDT , PA and lateral chest x-ray was obtained. There are 2 views. On my interpretation, there is bilateral lower lobe infiltrates. Bony thorax is normal. There is no cardiomegaly noted. Radiologist also interpreted the x- rays and agrees. EKG Initial EKG: Attestation: I personally reviewed and interpreted this EKG as follows: Interpretation: Paced Comments: EKG was obtained. On my independent interpretation, it shows a paced rhythm with a left bundle branch block pattern. Rate is 89. QRS interval was 148 ms. QTc interval was 545 ms. There is left axis deviation at -37. Prior EKG tracings: available for review Prior: Changed (Compared to previous EKG dated 09/29/2022, the pacemaker is new.) Treatment and Re-Evaluation :: Patient was given a dose of Zofran here for her nausea and vomiting. Patient was given a DuoNeb aerosol. Patient was started on Rocephin and Zithromax. Case was discussed with the hospitalist. She stated that the patient does not meet criteria for admission since her labs are essentially within normal limits and her oxygen saturation 100% on her baseline oxygen. She did recommended obtaining a BNP and if it was elevated to give her a dose of Lasix. Patient is on Lasix at home. Patient was given a dose of oral potassium here for her hypokalemia. Patient was given a prescription for potassium since she is not on it and is on Lasix. Patient was given prescriptions for Augmentin and Zithromax since Levaquin will be a longer QTc interval and it is already 545 ms. Patient was instructed to follow-up with her primary care physician in 5 to 7 days. Patient was instructed return if worse in any way. Patient and family understand and are agreeable with the plan. All questions were answered. Patient became lightheaded with standing after she received all of her antibiotics and oral potassium. Patient began having nausea and vomiting after standing. Patient was given Zofran. Patient was still having some nausea and vomiting after this. Patient was unable to ambulate because of the dizziness. Orthostatic vital signs were obtained and were negative. Patient states that her dizziness and nausea improved with sitting. Patient denies any spinning sensation. Patient denies any visual changes. Because of her nausea and difficulty with standing and ambulating, I feel the patient would benefit from observation. Case will be discussed with the hospitalist again. He will admit the patient for observation. Patient and family understand and are agreeable with the plan. All questions were answered. Discharge Plan Triage Chief Complaint: Shortness of Breath ED Provider: Savage Bustillos Dx/Rx/DC Orders Clinical Impression: Pneumonia, Hypokalemia Instructions: Hypokalemia Dc, ED Pneumonia (Adult) Prescriptions: New azithromycin [azithromycin] 250 mg tablet 250 mg PO DAILY Qty: 4 0RF amoxicillin-pot clavulanate [amoxicillin-pot clavulanate] 875-125 mg tablet 875 mg PO Q12H Qty: 20 0RF potassium chloride 10 mEq capsule, extended release 20 meq PO DAILY Qty: 20 0RF No Action temazepam 30 MG capsule 30 mg PO QHS PRN PRN (Reason: Sleep) omeprazole 20 MG capsule 20 mg PO DAILY montelukast 10 MG tablet 10 mg PO QHS ipratropium bromide 1 SPRAY spray,non-aerosol 2 spray NASAL DAILY PRN PRN (Reason: Shortness Of Breath) fluoxetine 20 MG capsule 20 mg PO DAILY calcium carbonate-vitamin D3 1 EACH tablet 1 ea PO DAILY Rx Instructions: budesonide-formoterol 1 INHALER inhaler 2 puff inhalation BID levocetirizine 5 MG tablet 5 mg PO DAILY bdbfmcyu-sms-oruv-FA-lutein 1 EACH tablet 1 ea PO DAILY [id number] serr 1 EACH tablet 1 ea PO DAILY quetiapine [Seroquel] 50 mg Tablet 50 mg PO QHS losartan 50 mg tablet 50 mg PO DAILY Label Comments: TAKE 1 TABLET BY MOUTH ONCE DAILY furosemide 40 mg tablet 40 mg PO BID Label Comments: TAKE 1 TABLET BY MOUTH TWICE DAILY metoprolol succinate 100 mg tablet extended release 24 hr 100 mg PO BID Label Comments: TAKE 1 TABLET BY MOUTH TWICE DAILY albuterol sulfate 90 mcg/actuation HFA aerosol inhaler 2 puff INHALATION Q4H PRN PRN (Reason: sob) aspirin 81 mg Capsule 81 mg PO DAILY Primary Care Provider: Magdalena Archer Referrals: Magdalena Archer PA [Primary Care Provider] - 5-7 Days Disposition Disposition: Acute Care Hospital [facility]
--- NOTE | 2022-10-19 15:35 | RAD_ITS ---
INDICATION: Cough EXAMINATION/TECHNIQUE: X-RAY - XR Chest 2 Views COMPARISON: 09/29/2022. FINDINGS: Slight interval worsening of bilateral interstitial and airspace opacities. Tortuous and calcified thoracic aorta. The heart is mildly enlarged. Left-sided cardiac device. Improved trace left pleural effusion. Resolved right pleural effusion. Degenerative changes of the thoracic spine. RAD/Chest PA and Lateral IMPRESSION: Slight interval worsening in multifocal pneumonia. Improved trace left pleural effusion. Resolved right pleural effusion. Electronically Signed: Robin Hayden MD at 15:53 EDT ,
[2022-10-19] MEDS: Ondansetron 4 MG/2 ML Vial IV (15:58)
[2022-10-19] MEDS: Ipratropium/Albuterol Sulfate 3 ML AMPUL.NEB INHALATION (16:21)
[2022-10-19 16:46] LABS: Anion Gap 7 (5-15); BUN 15 mg/dL (7-18); BUN/Creat Ratio 21.2 RATIO (10-20); Calcium,Total 8.6 mg/dL (8.5-10.1); Chloride 96 mmol/L (98-107); Creatinine, Serum 0.71 mg/dL (0.55-1.02); EST Glomerular Filtration Rate 86 mL/min (>60); Est Glom Filt Rate - Afr Amer 104 mL/min (>60); Glucose 126 mg/dL (74-106); Potassium 3.3 mmol/L (3.5-5.1); Sodium Level 130 mmol/L (136-145); Troponin-I HS 19 pg/mL (3.0-54.0)
[2022-10-19 17:36] LABS: Absolute Lymphocyte Count 0.63 X10^3/uL (0.83-4.51); Absolute Neutrophil Count 8.3 X10^3/uL (2.0-7.7); Basophil# 0.02 X10^3/uL; Basophil% 0.2 % (0-1); Hematocrit 30.7 % (37-47); Hemoglobin 9.5 g/dL (12.0-15.0); Lymphocyte # 0.63 X10^3/ul (0.83-4.51); Lymphocyte % 6.4 % (19-41); Mean Corp Hgb Conc 30.9 g/dL (32-36); Mean Corpuscular Hgb 29.5 pg (27.0-32.0); Mean Corpuscular Volume 95.3 fL (81-99); Mean Platelet Vol. 11.2 fl (6.2-12.0); Monocyte# 0.79 X10^3/uL; Monocyte% 8.1 % (0-10); NRBC Flagged by Analyzer 0 % (0-5); Neutrophil # 8.28 X10^3/uL (2.7-7.7); Neutrophil % 84.8 % (47-70); Platelet Count 159 K/mm3 (150-450); RBC Distribution Width CV 15.3 % (11.6-14.6); RBC Distribution Width SD 53.1 fl (35.1-43.9); Red Blood Count 3.22 M/mm3 (4.2-5.4); White Blood Count 9.8 K/mm3 (4.4-11.0)
[2022-10-19 18:32] LABS: BNP,B-Type NATRIURETIC PEPTIDE 386.5 pg/mL (0-100)
[2022-10-19] MEDS: Potassium Chloride Oral Tablet 20 MEQ 40 MEQ PO (19:23)
[2022-10-19] MEDS: Ondansetron ODT 4 MG Tablet PO (20:58)
--- NOTE | 2022-10-19 21:51 | PCM.HP.STD ---
HPI - General General Date of Admission: 10/19/22 Date of Service: 10/19/22 Chief Complaint: cough HPI Narrative MICA YORK, is a 72 F with a significant history of schizophrenia who presents to the emergency department with a 2 to 3 days history of progressively worsening nonproductive cough. Associated with her symptom is shortness of breath, lightheadedness, nausea and vomiting, lethargy and chills. On the day of presentation she went to the doctor's office where her temperature was found to be 101.8 Fahrenheit. She was then sent to emergency department. At the emergency department attempt was made to send patient home. However reportedly patient was nauseated and she had lightheadedness and was unable to ambulate. Of note on 29 Sep 2022 she was at a hospital and was transferred to [facility] for acute heart failure and need of pacemaker. [facility] Medical History Asthma Depression Generalized anxiety disorder Osteoarthritis Schizophrenia Home Medications budesonide-formoterol HFA 160 mcg-4.5 mcg/actuation aerosol inhaler 2 puff inhalation BID Check with primary doctor 11/29/18 [History Last Taken 10/19/22] calcium carbonate-vitamin D3 600 mg-125 unit tablet 1 ea PO DAILY SUPPLEMENT 11/29/18 [History Last Taken 10/19/22] fluoxetine 20 mg capsule 20 mg PO DAILY MENTAL HEALTH 11/29/18 [History Last Taken 10/19/22] glucosamine [id number] raji 1,500 mg-400 unit-100 mg tablet 1 ea PO DAILY SUPPLEMENT 11/29/18 [History Last Taken 10/19/22] ipratropium bromide 42 mcg (0.06 %) nasal spray 2 spray NASAL DAILY PRN PRN Shortness Of Breath 11/29/18 [History Last Taken 08/18/19] levocetirizine 5 mg tablet 5 mg PO DAILY ALLERGIES 11/29/18 [History Last Taken 10/19/22] montelukast 10 mg tablet 10 mg PO QHS ALLERGIES 11/29/18 [History Last Taken 10/18/22] multivit with jjvaiido-jcbp-VO-lutein 8 mg iron-400 mcg-300 mcg tablet 1 ea PO DAILY SUPPLEMENT 11/29/18 [History Last Taken 10/19/22] omeprazole 20 mg capsule,delayed release 20 mg PO DAILY ACID REFLUX 11/29/18 [History Last Taken 10/19/22] temazepam 30 mg capsule 30 mg PO QHS PRN PRN Sleep 11/29/18 [History Last Taken 10/18/22] quetiapine 50 mg tablet (Seroquel) 50 mg PO QHS mental health 09/13/22 [History Last Taken 10/18/22] albuterol sulfate 90 mcg/actuation aerosol inhaler 2 puff inhalation Q4H PRN PRN sob 10/19/22 [History Last Taken Unknown] amoxicillin 875 mg-potassium clavulanate 125 mg tablet 875 mg PO Q12H #20 TABLETS 10/19/22 [Rx Last Taken Unknown] aspirin 81 mg capsule 81 mg PO DAILY heart health 10/19/22 [History Last Taken 10/19/22] azithromycin 250 mg tablet 250 mg PO DAILY #4 TABLETS 10/19/22 [Rx Last Taken Unknown] furosemide 40 mg tablet 40 mg PO BID diuretic 10/19/22 [History Last Taken 10/19/22] losartan 50 mg tablet 50 mg PO DAILY HTN 10/19/22 [History Last Taken 10/19/22] metoprolol succinate 100 mg tablet,extended release 24 hr 100 mg PO BID HTN 10/19/22 [History Last Taken 10/19/22] potassium chloride 10 mEq capsule,extended release 20 meq PO DAILY #20 caps 10/19/22 [Rx Last Taken Unknown] Allergy/AdvReac Type Severity Reaction Status Date / Time grass pollen Allergy Itching Verified 10/19/22 14:28 Family History Father CAD (coronary artery disease) Hypertension Sister Hypertension Surgical History S/P appendectomy S/P nasal septoplasty S/P placement of cardiac pacemaker S/P tubal ligation S/P unilateral salpingo-oophorectomy Social History Smoking Status: Never smoker ROS ROS Narrative Pertinent positives and pertinent negatives as noted in HPI. All other systems were reviewed and are negative Vital Signs Vital Signs Vital Signs: 10/19/22 14:25 10/19/22 14:54 10/19/22 16:01 Temperature 98.1 F Temperature Source Temporal Pulse Rate 81 Pulse Rate [Lying] Pulse Rate [Sitting (for 1 minute prior to obtaining)] Pulse Rate [Standing (for 1 minute prior to obtaining)] Respiratory Rate 18 Respiratory Effort Normal Non-Labored Respiratory Depth Normal Respiratory Pattern Normal Blood Pressure 103/64 Blood Pressure [Lying] Blood Pressure [Sitting (for 1 minute prior to obtaining)] Blood Pressure [Standing (for 1 minute prior to obtaining)] Blood Pressure Mean 77 Blood Pressure Mean [Lying] Blood Pressure Mean [Sitting (for 1 minute prior to obtaining)] Blood Pressure Mean [Standing (for 1 minute prior to obtaining)] Pulse Ox 100 99 Oxygen Delivery Method Nasal Cannula Nasal Cannula Nasal Cannula Oxygen Flow Rate (L/min) 2 2 2 10/19/22 16:01 10/19/22 16:02 10/19/22 16:21 Temperature 98.3 F Temperature Source Oral Pulse Rate 75 78 Pulse Rate [Lying] Pulse Rate [Sitting (for 1 minute prior to obtaining)] Pulse Rate [Standing (for 1 minute prior to obtaining)] Respiratory Rate 18 16 Respiratory Effort Respiratory Depth Respiratory Pattern Normal Blood Pressure 122/60 H Blood Pressure [Lying] Blood Pressure [Sitting (for 1 minute prior to obtaining)] Blood Pressure [Standing (for 1 minute prior to obtaining)] Blood Pressure Mean 80 Blood Pressure Mean [Lying] Blood Pressure Mean [Sitting (for 1 minute prior to obtaining)] Blood Pressure Mean [Standing (for 1 minute prior to obtaining)] Pulse Ox 100 Oxygen Delivery Method Nasal Cannula Nasal Cannula Oxygen Flow Rate (L/min) 2 2 10/19/22 17:24 10/19/22 17:30 10/19/22 18:30 Temperature Temperature Source Pulse Rate 64 Pulse Rate [Lying] Pulse Rate [Sitting (for 1 minute prior to obtaining)] Pulse Rate [Standing (for 1 minute prior to obtaining)] Respiratory Rate Respiratory Effort Respiratory Depth Respiratory Pattern Blood Pressure 109/85 H 112/63 112/56 L Blood Pressure [Lying] Blood Pressure [Sitting (for 1 minute prior to obtaining)] Blood Pressure [Standing (for 1 minute prior to obtaining)] Blood Pressure Mean 93 77 73 Blood Pressure Mean [Lying] Blood Pressure Mean [Sitting (for 1 minute prior to obtaining)] Blood Pressure Mean [Standing (for 1 minute prior to obtaining)] Pulse Ox 100 99 100 Oxygen Delivery Method Nasal Cannula Oxygen Flow Rate (L/min) 2 10/19/22 19:15 10/19/22 20:13 10/19/22 20:35 Temperature Temperature Source Pulse Rate Pulse Rate [Lying] 63 Pulse Rate [Sitting (for 1 minute prior to obtaining)] 67 Pulse Rate [Standing (for 1 minute prior to obtaining)] 61 Respiratory Rate Respiratory Effort Respiratory Depth Respiratory Pattern Blood Pressure 116/64 119/69 Blood Pressure [Lying] 135/94 H Blood Pressure [Sitting (for 1 minute prior to obtaining)] 134/82 H Blood Pressure [Standing (for 1 minute prior to obtaining)] 129/68 H Blood Pressure Mean 81 85 Blood Pressure Mean [Lying] 107 Blood Pressure Mean [Sitting (for 1 minute prior to obtaining)] 99 Blood Pressure Mean [Standing (for 1 minute prior to obtaining)] 88 Pulse Ox 98 Oxygen Delivery Method Nasal Cannula Oxygen Flow Rate (L/min) 2 10/19/22 21:08 Temperature Temperature Source Pulse Rate Pulse Rate [Lying] Pulse Rate [Sitting (for 1 minute prior to obtaining)] Pulse Rate [Standing (for 1 minute prior to obtaining)] Respiratory Rate Respiratory Effort Respiratory Depth Respiratory Pattern Blood Pressure Blood Pressure [Lying] Blood Pressure [Sitting (for 1 minute prior to obtaining)] Blood Pressure [Standing (for 1 minute prior to obtaining)] Blood Pressure Mean Blood Pressure Mean [Lying] Blood Pressure Mean [Sitting (for 1 minute prior to obtaining)] Blood Pressure Mean [Standing (for 1 minute prior to obtaining)] Pulse Ox Oxygen Delivery Method Nasal Cannula Oxygen Flow Rate (L/min) 2 Weight Weight: 44.4 kg Body Mass Index (BMI) 17.9 Physical Exam Narrative Physical exam: General: Well-nourished, well-developed. Head: Normocephalic, atraumatic, no tenderness Eyes: Vision is grossly intact. EOMI ENT, no trauma, moist mucous membranes, no rhinorrhea Neck: Nontender, No thyromegaly. CVS: Regular rate and rhythm. S1-S2 present. No murmur, gallop or rub. Respiratory : Diminished, mild Rales, chest wall nontender Abdomen: Soft, nontender, nondistended, normal bowel sounds, no masses : Deferred Back: Nontender, no CVA tenderness. Extremities: Cachectic. Nontender full range of motion, no trauma Skin: Normal color, no trauma, abrasions Neuro: Alert, oriented to place, month and the year. Cranial nerves II through XII grossly intact. Psychiatry: Normal mood. Normal affect. Not depressed. Not anxious. Results Lab / Micro Data Attestation: I reviewed the patient's lab results. Result Diagrams: 10/20/22 06:15 10/20/22 06:15 Labs: Laboratory Results - last 24 hr 10/19/22 16:15: WBC Cancelled, Corrected WBC Cancelled, RBC Cancelled, Hgb Cancelled, Hct Cancelled, MCV Cancelled, MCH Cancelled, MCHC Cancelled, RDW Std Deviation Cancelled, RDW Coeff of Jeff Cancelled, Plt Count Cancelled, MPV Cancelled, Immature Gran % (Auto) Cancelled, Neut % (Auto) Cancelled, Lymph % (Auto) Cancelled, [place] % (Auto) Cancelled, Eos % (Auto) Cancelled, Baso % (Auto) Cancelled, Absolute Neuts (auto) Cancelled, Absolute Lymphs (auto) Cancelled, Total Counted Cancelled, Neutrophils % (Manual) Cancelled, Band Neutrophils % Cancelled, Lymphocytes % (Manual) Cancelled, Monocytes % (Manual) Cancelled, Eosinophils % (Manual) Cancelled, Basophils % (Manual) Cancelled, Metamyelocytes % Cancelled, Myelocytes % Cancelled, Promyelocytes % Cancelled, Blast Cells % Cancelled, Plasma Cell % (Manual) Cancelled, Other Cells % Cancelled, Nucleated RBC % Cancelled, Nucleated RBCs/100 WBC Cancelled, Differential Comment Cancelled, Diff Path Review Cancelled, Hypersegmented Neuts Cancelled, Atypical Lymphocytes Cancelled, Reactive Lymphocytes Cancelled, Smudge Cells Cancelled, Toxic Granulation Cancelled, Toxic Vacuolation Cancelled, Dohle Bodies Cancelled, Micaela Rods Cancelled, Platelet Estimate Cancelled, Plt Morphology Comment Cancelled, RBC Morphology Cancelled, Polychromasia Cancelled, Hypochromasia Cancelled, Poikilocytosis Cancelled, Basophilic Stippling Cancelled, Anisocytosis Cancelled, Microcytosis Cancelled, Macrocytosis Cancelled, Spherocytes Cancelled, Sickle Cells Cancelled, Target Cells Cancelled, Tear Drop Cells Cancelled, Ovalocytes Cancelled, Stomatocytes Cancelled, Steel[place] Bodies Cancelled, Bob Cells Cancelled, Bite Cells Cancelled, Crenated Cell Cancelled, Acanthocytes (Spur) Cancelled, Rouleaux Cancelled, Schistocytes Cancelled 10/19/22 16:15: Sodium 130 L, Potassium 3.3 L, Chloride 96 L, Carbon Dioxide 27.0, Anion Gap 7, BUN 15, Creatinine 0.71, Estim Creat Clear Calc 34.60, Est GFR (MDRD) Af Amer 104, Est GFR (MDRD) Non-Af 86, BUN/Creatinine Ratio 21.2 H, Glucose 126 H, Calcium 8.6, Troponin I High Sens 19 10/19/22 17:12: WBC 9.8, RBC 3.22 L, Hgb 9.5 L, Hct 30.7 L, MCV 95.3, MCH 29.5, MCHC 30.9 L, RDW Std Deviation 53.1 H, RDW Coeff of Jeff 15.3 H, Plt Count 159, MPV 11.2, Immature Gran % (Auto) 0.500, Neut % (Auto) 84.8 H, Lymph % (Auto) 6.4 L, [place] % (Auto) 8.1, Eos % (Auto) 0.0, Baso % (Auto) 0.2, Absolute Neuts (auto) 8.3 H, Absolute Lymphs (auto) 0.63 L, Nucleated RBC % 0 10/19/22 17:12: B-Natriuretic Peptide 386.5 H Micro: Microbiology 10/19/22 16:15 Nasal Secretion SARS-CoV-2 & FLU Antigen (Rapid) - Final Radiology Impression Chest X-Ray 10/19/22 15:35 IMPRESSION: Slight interval worsening in multifocal pneumonia. Improved trace left pleural effusion. Resolved right pleural effusion. Electronically Signed: Robin Hayden MD at 15:53 EDT , Assessment & Plan Assessment/Plan (1) Pneumonia: (2) Hypokalemia: (3) Hyponatremia: PLAN: Plan Pneumonia Gram-positive, gram-negative or atypical. Strep pneumonia and Legionella urine antigen ordered DuoNeb as needed ordered Legionella antigen screen and Strep antigen ordered Impression of chest x-ray by radiology:Slight interval worsening in multifocal pneumonia. ?Improved trace left pleural effusion. Resolved right pleural effusion. Chest x-ray and previous chest x-ray was independently interpreted and I agree with radiology interpretation Ceftriaxone and azithromycin started at the emergency department and continued. Hypokalemia and hyponatremia Oral potassium solution ordered. Home potassium supplementation continued. Trend BMP Hyponatremia Does not look fluid overloaded. BNP on presentation was 386.5. His BNP on 09/29/2022 was 284.7. Trend BMP. Electrolytes ordered Generalized weakness PT and OT consult. Case management consult. Hypertension Blood pressure is stable Continue home blood pressure medication Trend blood pressures DVT prophylaxis: Subcutaneous Lovenox ordered Charges/Coding Visit Charges Inpatient E&M: 52919 Init Hosp L3
[2022-10-19] MEDS: Potassium Chloride Oral Soln 20 MEQ/15 ML UDC 40 MEQ PO (23:40)
[2022-10-20] VITALS (9 sets, daily range): BP systolic 85–110; BP diastolic 52–79; PULSE 63–82; RESP 16–18; TEMP 36.6–36.9; O2SAT 96–99
[2022-10-20] MEDS: Temazepam 15 MG Capsule 30 MG PO (03:44)
[2022-10-20] MEDS: 0.9% Saline Lock 10 ML Syringe IV ×2 (03:47→11:56)
[2022-10-20 06:36] LABS: Absolute Neutrophil Count 6.6 X10^3/uL (2.0-7.7); Basophil# 0.02 X10^3/uL; Basophil% 0.2 % (0-1); Eosinophil# 0.02 X10^3/uL; Eosinophils% 0.2 % (0-5); Hematocrit 28.9 % (37-47); Hemoglobin 9.1 g/dL (12.0-15.0); Mean Corp Hgb Conc 31.5 g/dL (32-36); Mean Corpuscular Hgb 29.9 pg (27.0-32.0); Mean Corpuscular Volume 95.1 fL (81-99); Mean Platelet Vol. 11.4 fl (6.2-12.0); Monocyte# 0.62 X10^3/uL; Monocyte% 7.6 % (0-10); NRBC Flagged by Analyzer 0 % (0-5); Neutrophil % 80.5 % (47-70); Platelet Count 145 K/mm3 (150-450); RBC Distribution Width CV 15.2 % (11.6-14.6); RBC Distribution Width SD 52.7 fl (35.1-43.9); Red Blood Count 3.04 M/mm3 (4.2-5.4); White Blood Count 8.2 K/mm3 (4.4-11.0)
[2022-10-20 07:01] LABS: Anion Gap 4 (5-15); BUN 11 mg/dL (7-18); BUN/Creat Ratio 19.6 RATIO (10-20); Calcium,Total 8.6 mg/dL (8.5-10.1); Chloride 98 mmol/L (98-107); Creatinine, Serum 0.56 mg/dL (0.55-1.02); EST Glomerular Filtration Rate 112 mL/min (>60); Est Glom Filt Rate - Afr Amer 136 mL/min (>60); Estimated Creatinine Clearance 33.11 ml/min; Glucose 108 mg/dL (74-106); Potassium 4.3 mmol/L (3.5-5.1); Sodium Level 131 mmol/L (136-145)
[2022-10-20] MEDS: Ipratropium/Albuterol Sulfate 3 ML AMPUL.NEB INHALATION ×3 (07:21→15:04)
[2022-10-20] MEDS: Budesonide Respules 0.5 MG/2 ML AMPUL.NEB. INHALATION (07:21)
[2022-10-20 08:00] LABS: Osmolality, Serum 269 mOsm/KG (280-301)
[2022-10-20] MEDS: Aspirin 81 MG TAB.CHEW PO (09:19)
[2022-10-20] MEDS: Multivitamins,Ther W-Minerals Tablet 1 TABLET PO (09:19)
[2022-10-20] MEDS: Calcium Carb/Vitamin D 1 TABLET Tablet PO (09:19)
[2022-10-20] MEDS: Loratadine 10 MG Tablet PO (09:20)
[2022-10-20] MEDS: FLUoxetine 20 MG Capsule PO (09:20)
[2022-10-20] MEDS: Enoxaparin 40 MG/0.4 ML Syringe SC (09:20)
[2022-10-20] MEDS: Pantoprazole Sodium 20 MG Tablet PO (09:20)
--- NOTE | 2022-10-20 10:45 | CASEMGMT ---
Addendum entered by Nasra Bazan 10/20/22 11:18: YASMINE BEARD into pt room, pt is aware that the agency currently seeing her is [facility] not [facility]. She states this is fine, she wants to stay with the current agency she has. She is aware SN, PT and OT are ordered for home dc and she is agreeable to this. Addendum entered by Nasra Bazan 10/20/22 11:11: Received tc back from Leilani at [facility], states pt is active with their services for SN and OT and there is a PT eval. She is aware pt is hospitalized and will accept pt back. DC social science research assistant to send H&P and resumption order at this time. Addendum entered by Nasra Bazan 10/20/22 11:05: Received notification from dc social science research assistant that [facility] does not have a referral for pt. TC to Tesfaye Archer's office, spoke with [employer]ANCH SERVICE LEADER, she states pt is active with [facility] for SN and OT. TC to Kuldip at [facility], left message to see if pt is active. DC social science research assistant to also send message through [employer]. Original Note: YASMINE BEARD into pt room, pt sitting up in bed in no distress. Pt states she was going to have HHC therapy come out to her home from [facility]. She states she wears oxygen through [facility] [place] at 2L cont. Pt has a portable tank present in room. Pt states she cannot drive for 2 weeks d/t pacemaker being placed. Pt dtr transports her to medical appts and assists as needed with pt care. Pt states typically she is I in ADL's but yesterday needed her dtr's help bathing. Pt has a FWW and raised toilet seat at home. DC social science research assistant to contact [facility] to verify disciplines ordered. TC to Shane, piedad Frias pt is a pt of [facility], states to send rx to her if needs increased oxygen and she will get to [facility]. Pt agreeable to having SN and PT in the home and wants to stay with [facility]. She declined need for a list of other agency options. Pt denies further needs.
--- NOTE | 2022-10-20 10:55 | CASEMGMT ---
Discharge Planning Message sent to [facility] via [employer] to see if they had referral open on patient from her PCP and for what disciplines. Jerrica Guzman
--- NOTE | 2022-10-20 11:09 | CASEMGMT ---
Discharge Planning [facility] does not have a referral for patient. RN CHIRAG reached out to PCP. Referral was sent to [facility]. Message sent to [facility] via [employer] to verify. Jerrica Guzman
--- NOTE | 2022-10-20 11:17 | CON.PCM.CC_ITS ---
Assessment & Plan Assessment/Plan (1) Hyponatremia: (2) Hypoxia: PLAN: Plan RECOMMENDATIONS: 1. Discontinue Pulmicort. Add 5-day burst of steroids 2. Challenge with diuretics 3. Wean oxygen as tolerated. Walking oximetry prior to discharge 4. Possible CT of the chest in the future if not improving 5. Consider pacemaker interrogation 6. Outpatient complete PFTs 7. Consider speech therapy evaluation 8. Patient can be seen in 2 weeks with [facility] IMPRESSIONS: 1. Acute hypoxic respiratory insufficiency Unclear etiology. Patient is reporting fever at home, but does not have any leukocytosis. Patient does have a possible infiltrate in the right lower lobe. Patient appears to have had a recent pleural effusion status post thoracentesis. These records would be helpful in evaluation. Patient does not appear to have significant effusions at this time that would require intervention. Patient will be challenged with diuretics. Patient will need a walking oximetry prior to discharge. Patient does have increased parenchymal signs, but this may be secondary to fluid overload. Patient is not reporting a ny smoking history. Patient does have a slight build, so lately Honobia syndrome would be a consideration. Patient would benefit from outpatient pulmonary function test. Patient does have recent pacemaker with no significant change in heart rates. Could consider interrogation of the pacemaker. 2. Hyponatremia Unclear etiology at this time. Patient does not have a clinical presentation suggesting volume overload, but does have an elevated BNP. We will challenge with diuretics. Continue to follow with outpatient BMP HPI Consult Data Date of Consult: 10/20/22 HPI Narrative Reason for Consultation: Hypoxia HPI Narrative: MICA YORK is a 72 F, with past medical history listed below, who presents to [facility] on 10/19/2022 secondary to progressive shortness of breath. Patient reported significant worsening over the last 2 to 3 days. Patient had reported a productive cough, but does not know what color as she does not expectorate. Patient does report a temperature at home of 101.8 ?F, along with sinus congestion, rhinorrhea and sore throat. Patient does report a history of asthma controlled with Symbicort. Patient does not use supplemental oxygen at baseline. In the emergency room, patient was afebrile, normotensive and saturating 100% on 2 L. Orthostatics were negative. Laboratory data showed a white blood cell count of 9.8, hemoglobin 9.5 and platelets of 159. Chemistry showed a sodium of 130, potassium of 3.3 and chloride of 96. Glucose was slightly elevated at 126 and BMP was 387. Chest x-ray showed bilateral infiltrates with a resolved right pleural effusion. Patient was given Zofran for nausea, DuoNeb initiated on Rocephin and Zithromax. Patient was initially going to be discharged, but subsequently became lightheaded on standing and was unable to ambulate, so was admitted to the hospital for further observation. Patient is a relatively good historian. Patient does report a long history of asthma controlled with Symbicort. Patient states she has been compliant with therapy, but has had some sinus congestion. Patient did report a fever recently. Patient recently went to [facility] secondary to heart block and had a pacemaker placed. Patient states she was not able to make it back to her baseline since that time. Patient states she did have a thoracentesis with 1.2 L drained, but is unaware of any results. Patient has never been told she has COPD or obstructive lung disease. Patient has not required any supplemental oxygen previously outside of the hospital. Patient does not routinely follow with a lead teacher, but does believe that she has had pulmonary function studies in the past. Patient describes herself as a small woman and has not had any recent weight loss. Patient is not reporting any lower extremity edema, but does have increased symptoms with change in body position. Patient denies any current chest pain. Patient believes her nausea is improved since being hospitalized. Patient does report intermittent episodes of choking, but does not have any consistent problems. Review of systems otherwise negative from a constitutional, HEENT, respiratory, cardiovascular, GI, genitourinary, musculoskeletal, skin, neurologic, psychiatric and hematologic system unless stated above. [facility] Medical History Asthma Depression Generalized anxiety disorder Osteoarthritis Schizophrenia Home Medications budesonide-formoterol HFA 160 mcg-4.5 mcg/actuation aerosol inhaler 2 puff inhalation BID Check with primary doctor 11/29/18 [History Last Taken 10/19/22] calcium carbonate-vitamin D3 600 mg-125 unit tablet 1 ea PO DAILY SUPPLEMENT 11/29/18 [History Last Taken 10/19/22] fluoxetine 20 mg capsule 20 mg PO DAILY MENTAL HEALTH 11/29/18 [History Last Taken 10/19/22] glucosamine WOr-D3-Ereedxrcm raji 1,500 mg-400 unit-100 mg tablet 1 ea PO DAILY SUPPLEMENT 11/29/18 [History Last Taken 10/19/22] ipratropium bromide 42 mcg (0.06 %) nasal spray 2 spray NASAL DAILY PRN PRN Shortness Of Breath 11/29/18 [History Last Taken 08/18/19] levocetirizine 5 mg tablet 5 mg PO DAILY ALLERGIES 11/29/18 [History Last Taken 10/19/22] montelukast 10 mg tablet 10 mg PO QHS ALLERGIES 11/29/18 [History Last Taken 10/18/22] multivit with cbqeesgw-tstx-CJ-lutein 8 mg iron-400 mcg-300 mcg tablet 1 ea PO DAILY SUPPLEMENT 11/29/18 [History Last Taken 10/19/22] omeprazole 20 mg capsule,delayed release 20 mg PO DAILY ACID REFLUX 11/29/18 [History Last Taken 10/19/22] temazepam 30 mg capsule 30 mg PO QHS PRN PRN Sleep 11/29/18 [History Last Taken 10/18/22] quetiapine 50 mg tablet (Seroquel) 50 mg PO QHS mental health 09/13/22 [History Last Taken 10/18/22] albuterol sulfate 90 mcg/actuation aerosol inhaler 2 puff inhalation Q4H PRN PRN sob 10/19/22 [History Last Taken Unknown] amoxicillin 875 mg-potassium clavulanate 125 mg tablet 875 mg PO Q12H #20 TABLETS 10/19/22 [Rx Last Taken Unknown] aspirin 81 mg capsule 81 mg PO DAILY heart health 10/19/22 [History Last Taken 10/19/22] azithromycin 250 mg tablet 250 mg PO DAILY #4 TABLETS 10/19/22 [Rx Last Taken Unknown] furosemide 40 mg tablet 40 mg PO BID diuretic 10/19/22 [History Last Taken 10/19/22] losartan 50 mg tablet 50 mg PO DAILY HTN 10/19/22 [History Last Taken 10/19/22] metoprolol succinate 100 mg tablet,extended release 24 hr 100 mg PO BID HTN 10/19/22 [History Last Taken 10/19/22] potassium chloride 10 mEq capsule,extended release 20 meq PO DAILY #20 caps 10/19/22 [Rx Last Taken Unknown] Allergy/AdvReac Type Severity Reaction Status Date / Time grass pollen Allergy Itching Verified 10/19/22 14:28 Family History Father CAD (coronary artery disease) Hypertension Sister Hypertension Surgical History S/P appendectomy S/P nasal septoplasty S/P placement of cardiac pacemaker S/P tubal ligation S/P unilateral salpingo-oophorectomy Social History Smoking Status: Never smoker ROS ROS Narrative See HPI Physical Exam Const alert and oriented x3 Constitutional Narrative: No conversational dyspnea General Appearance: frail HEENT normocephalic and head/scalp atraumatic Eyes PERRL, EOMs intact bilaterally and conjunctivae normal Neck full ROM and no lymphadenopathy Lymph Lymphatic: no lymphadenopathy noted Resp Auscultation: rales bilateral base, wheezes and diminished lung sounds Cardio regular rate, regular rhythm, S1 normal heart sound, S2 normal heart sound, no murmurs, no rub and no gallops GI normal to inspection, nondistended, normoactive bowel sounds Extremity no clubbing, cyanosis or edema Skin no rashes or lesions noted Skin Narrative: Dermal atrophy noted Neuro oriented x3 and CN's II-XII intact bilaterally Lab / Micro Data Result Diagrams: 10/20/22 06:15 10/20/22 06:15 Labs: Laboratory Results - last 24 hr 10/19/22 16:15: WBC Cancelled, Corrected WBC Cancelled, RBC Cancelled, Hgb Cancelled, Hct Cancelled, MCV Cancelled, MCH Cancelled, MCHC Cancelled, RDW Std Deviation Cancelled, RDW Coeff of Jeff Cancelled, Plt Count Cancelled, MPV Cancelled, Immature Gran % (Auto) Cancelled, Neut % (Auto) Cancelled, Lymph % (Auto) Cancelled, [place] % (Auto) Cancelled, Eos % (Auto) Cancelled, Baso % (Auto) Cancelled, Absolute Neuts (auto) Cancelled, Absolute Lymphs (auto) Cancelled, Total Counted Cancelled, Neutrophils % (Manual) Cancelled, Band Neutrophils % Cancelled, Lymphocytes % (Manual) Cancelled, Monocytes % (Manual) Cancelled, Eosinophils % (Manual) Cancelled, Basophils % (Manual) Cancelled, Metamyelocytes % Cancelled, Myelocytes % Cancelled, Promyelocytes % Cancelled, Blast Cells % Cancelled, Plasma Cell % (Manual) Cancelled, Other Cells % Cancelled, Nucleated RBC % Cancelled, Nucleated RBCs/100 WBC Cancelled, Differential Comment Cancelled, Diff Path Review Cancelled, Hypersegmented Neuts Cancelled, Atypical Lymphocytes Cancelled, Reactive Lymphocytes Cancelled, Smudge Cells Cancelled, Toxic Granulation Cancelled, Toxic Vacuolation Cancelled, Dohle Bodies Cancelled, Micaela Rods Cancelled, Platelet Estimate Cancelled, Plt Morphology Comment Cancelled, RBC Morphology Cancelled, Polychromasia Cancelled, Hypoch romasia Cancelled, Poikilocytosis Cancelled, Basophilic Stippling Cancelled, Anisocytosis Cancelled, Microcytosis Cancelled, Macrocytosis Cancelled, Spherocytes Cancelled, Sickle Cells Cancelled, Target Cells Cancelled, Tear Drop Cells Cancelled, Ovalocytes Cancelled, Stomatocytes Cancelled, [place] Bodies Cancelled, [place] Cells Cancelled, Bite Cells Cancelled, Crenated Cell Cancelled, Acanthocytes (Spur) Cancelled, Rouleaux Cancelled, Schistocytes Cancelled 10/19/22 16:15: Sodium 130 L, Potassium 3.3 L, Chloride 96 L, Carbon Dioxide 27.0, Anion Gap 7, BUN 15, Creatinine 0.71, Estim Creat Clear Calc 34.60, Est GFR (MDRD) Af Amer 104, Est GFR (MDRD) Non-Af 86, BUN/Creatinine Ratio 21.2 H, Glucose 126 H, Calcium 8.6, Troponin I High Sens 19 10/19/22 16:15: Uric Acid 4.0 10/19/22 17:12: WBC 9.8, RBC 3.22 L, Hgb 9.5 L, Hct 30.7 L, MCV 95.3, MCH 29.5, MCHC 30.9 L, RDW Std Deviation 53.1 H, RDW Coeff of Jeff 15.3 H, Plt Count 159, MPV 11.2, Immature Gran % (Auto) 0.500, Neut % (Auto) 84.8 H, Lymph % (Auto) 6.4 L, [place] % (Auto) 8.1, Eos % (Auto) 0.0, Baso % (Auto) 0.2, Absolute Neuts (auto) 8.3 H, Absolute Lymphs (auto) 0.63 L, Nucleated RBC % 0 10/19/22 17:12: B-Natriuretic Peptide 386.5 H 10/20/22 06:15: Serum Osmolality 269 L 10/20/22 06:15: WBC 8.2, RBC 3.04 L, Hgb 9.1 L, Hct 28.9 L, MCV 95.1, MCH 29.9, MCHC 31.5 L, RDW Std Deviation 52.7 H, RDW Coeff of Jeff 15.2 H, Plt Count 145 L, MPV 11.4, Immature Gran % (Auto) 0.500, Neut % (Auto) 80.5 H, Lymph % (Auto) 11.0 L, [place] % (Auto) 7.6, Eos % (Auto) 0.2, Baso % (Auto) 0.2, Absolute Neuts (auto) 6.6, Absolute Lymphs (auto) 0.90, Nucleated RBC % 0 10/20/22 06:15: Sodium 131 L, Potassium 4.3, Chloride 98, Carbon Dioxide 29.0, Anion Gap 4 L, BUN 11, Creatinine 0.56, Estim Creat Clear Calc 33.11, Est GFR (MDRD) Af Amer 136, Est GFR (MDRD) Non-Af 112, BUN/Creatinine Ratio 19.6, Glucose 108 H, Calcium 8.6 Micro: Microbiology 10/19/22 16:15 Nasal Secretion SARS-CoV-2 & FLU Antigen (Rapid) - Final Radiology Impression Chest X-Ray 10/19/22 15:35 IMPRESSION: Slight interval worsening in multifocal pneumonia. Improved trace left pleural effusion. Resolved right pleural effusion. Electronically Signed: Robin Hayden MD at 15:53 EDT , Charges/Coding Visit Charges Inpatient E&M: 55385 Init Hosp L2
--- NOTE | 2022-10-20 11:20 | CASEMGMT ---
Discharge Planning HH order and H&P sent via [facility] to [facility]. Jerrica Guzman
[2022-10-20] MEDS: predniSONE 20 MG Tablet 40 MG PO (11:55)
[2022-10-20] MEDS: Furosemide 20 MG/2 ML VIAL IV (11:55)
--- NOTE | 2022-10-20 11:56 | PCM.DC ---
Discharge Instructions Diet Discharge Diet: No restrictions Activity Discharge Activity: Return to Normal Activity Weight Bearing Status: Full weight bearing Follow Up Care Test Results: Test results from this visit will be discussed in further detail at your follow-up appointment, if applicable. Discharge Plan Admission Admit Date/Time: 10/19/22 22:03 Primary Reason for Your Visit: pneumonia Attending Provider: Sd Mejias Primary Care Provider: Magdalena Archer Consulting Providers: Gagandeep Roberts ; Ashish Levine ; Jonathan Davies ; Ancelmo Mart ; Clifford Elder ; Lorie Costello [employer] Instructions Patient Instructions: Hypokalemia Dc, ED Pneumonia (Adult) Additional Instructions / Restrictions: Continue oxygen at home at 2 liters/min Discharge Orders/Prescriptions Prescriptions: New prednisone 10 mg tablet 10 mg PO UD Qty: 18 0RF Rx Instructions: Two twice a day for 2 days, then 3 once a day for 2 days, then 2 once a day for 2 days then discontinue doxycycline monohydrate 100 mg tablet 100 mg PO BID Qty: 14 0RF Rx Instructions: Start on 10/21/2022 potassium chloride 10 mEq tablet extended release 20 meq PO DAILY Qty: 60 0RF Continued temazepam 30 MG capsule 30 mg PO QHS PRN PRN (Reason: Sleep) omeprazole 20 MG capsule 20 mg PO DAILY montelukast 10 MG tablet 10 mg PO QHS ipratropium bromide 1 SPRAY spray,non-aerosol 2 spray NASAL DAILY PRN PRN (Reason: Shortness Of Breath) fluoxetine 20 MG capsule 20 mg PO DAILY calcium carbonate-vitamin D3 1 EACH tablet 1 ea PO DAILY Rx Instructions: budesonide-formoterol 1 INHALER inhaler 2 puff inhalation BID levocetirizine 5 MG tablet 5 mg PO DAILY hyxzgpiq-bpg-ftdb-FA-lutein 1 EACH tablet 1 ea PO DAILY oqjysffajst-Z1-Gtemrcuzp serr 1 EACH tablet 1 ea PO DAILY quetiapine [Seroquel] 50 mg Tablet 50 mg PO QHS losartan 50 mg tablet 50 mg PO DAILY Label Comments: TAKE 1 TABLET BY MOUTH ONCE DAILY furosemide 40 mg tablet 40 mg PO BID Label Comments: TAKE 1 TABLET BY MOUTH TWICE DAILY metoprolol succinate 100 mg tablet extended release 24 hr 100 mg PO BID Label Comments: TAKE 1 TABLET BY MOUTH TWICE DAILY albuterol sulfate 90 mcg/actuation HFA aerosol inhaler 2 puff INHALATION Q4H PRN PRN (Reason: sob) aspirin 81 mg Capsule 81 mg PO DAILY Referrals / Follow Up: Ashish Levine MD [Med Staff - Active Staff] - 11/06/22 2:40 pm (In 2 weeks as scheduled) Magdalena Archer PA [Primary Care Provider] - 5-7 Days Disposition Disposition (needs filled in before D/C Order can be placed): Home Health Service
[2022-10-20 12:52] LABS: Bacteria 0 SEEN /hpf (None Seen); Mucous, Urine 0 SEEN /hpf (<or=2+); Red Blood Cells-Urine 0 SEEN /hpf (0-5)
[2022-10-20 12:57] LABS: Color, Urine Yellow (Yellow); Glucose, Dipstick Normal (Normal); Ketone-Dipstick Negative (Negative); Leukocyte Esterase-Dipstick Negative /ul (Negative); Nitrite-Dipstick Negative (Negative); Occult Blood-Urine 10 /ul (Negative); Protein-Dipstick 30 mg/dl (Negative); Urine Bilirubin Dipstick Negative (Negative); Urine Clarity Clear (Clear); Urine Urobilinogen Normal (Normal)
[2022-10-20 13:04] LABS: Squamous Epithelial Cells - UA 0-5 SEEN /hpf (5-10); White Blood Cells 0-5 SEEN /hpf (0-5)
--- NOTE | 2022-10-20 13:07 | DS.PCM_ITS ---
Providers Date of Admission: 10/19/22 Primary Care Physician: NITESH Amin Consultations 10/20/22 08:26 Consult: Child Care Development Specialist / Pulmonary Medicine Routine Consulting Provider: Pulmonary Medicine len [place] Reason for Consult: ? pneumonia vs CHF EMERGENT Consult: No MD Notified: Yes Date Notified: 10/20/22 Time Notified: 08:26 Method of Notification: Verbal Reason For Visit: GENERALIZED WEAKNESS, PNEUMONIA Diagnosis Discharge Diagnosis (1) Hyponatremia: Status: Acute Code(s): E87.1 - Hypo-osmolality and hyponatremia (2) Hypoxia: Status: Acute Code(s): R09.02 - Hypoxemia Medications at Discharge Home Medications budesonide-formoterol HFA 160 mcg-4.5 mcg/actuation aerosol inhaler 2 puff inhalation BID Check with primary doctor 11/29/18 calcium carbonate-vitamin D3 600 mg-125 unit tablet 1 ea PO DAILY SUPPLEMENT 11/29/18 fluoxetine 20 mg capsule 20 mg PO DAILY MENTAL HEALTH 11/29/18 glucosamine OTl-N1-Hoxxkngaw raji 1,500 mg-400 unit-100 mg tablet 1 ea PO DAILY SUPPLEMENT 11/29/18 ipratropium bromide 42 mcg (0.06 %) nasal spray 2 spray NASAL DAILY PRN PRN Shortness Of Breath 11/29/18 levocetirizine 5 mg tablet 5 mg PO DAILY ALLERGIES 11/29/18 montelukast 10 mg tablet 10 mg PO QHS ALLERGIES 11/29/18 multivit with mhkwhrwh-ivvy-TF-lutein 8 mg iron-400 mcg-300 mcg tablet 1 ea PO DAILY SUPPLEMENT 11/29/18 omeprazole 20 mg capsule,delayed release 20 mg PO DAILY ACID REFLUX 11/29/18 temazepam 30 mg capsule 30 mg PO QHS PRN PRN Sleep 11/29/18 quetiapine 50 mg tablet (Seroquel) 50 mg PO QHS mental health 09/13/22 albuterol sulfate 90 mcg/actuation aerosol inhaler 2 puff inhalation Q4H PRN PRN sob 10/19/22 aspirin 81 mg capsule 81 mg PO DAILY heart health 10/19/22 furosemide 40 mg tablet 40 mg PO BID diuretic 10/19/22 losartan 50 mg tablet 50 mg PO DAILY HTN 10/19/22 metoprolol succinate 100 mg tablet,extended release 24 hr 100 mg PO BID HTN 10/19/22 doxycycline monohydrate 100 mg tablet 100 mg PO BID #14 tabs 10/20/22 potassium chloride 10 mEq tablet,extended release 20 meq PO DAILY #60 tabs 10/20/22 prednisone 10 mg tablet 10 mg PO UD #18 tabs 10/20/22 Hospital Course Operations None Procedures None Summary of Care Provided Minutes Spent on Discharge: 31 Hospital Course: 2-year-old white female was seen in the emergency room at [facility] with a complaint of dyspnea on exertion, she had recently been discharged from [facility] after having a pacemaker inserted and a thoracentesis was also carried out according to the patient. She further gave a history of pneumonia while she was in the hospital also. Patient states that she did not get a prescription for home-going antibiotics however. Work-up in the emergency room included a CBC which showed a mild anemia, metabolic profile showed a hyponatremia of 130 and a potassium of 3.3. High-sensitivity troponin was normal, COVID-19 rapid antigen test was reviewed and negative. Influenza a and B antigens were obtained and these were negative. The plan was for the patient to go home from the emergency room, however, the patient became lightheaded when she tried ambulate and it was felt that she should be put in observation status and reevaluated the next day. Patient was given supplemental potassium replacement. Patient was seen by PT and OT, IV antibiotics were co ntinued, and she was seen in consultation by the pulmonary service. PT and OT felt that the patient could return home with physical therapy as an outpatient, this was already set up for the patient, in addition, patient already had oxygen set up in her home. On 10/20/2022, patient was seen and examined: On examination she appeared in good health and spirits, she does not appear to be in any distress. Vital signs as documented. Skin warm and dry and without overt rashes. Neck without JVD, thyroi d appears normal, trachea is midline, neck is supple. Lungs-there was inspiratory rales at the bases bilaterally, normal air movement was noted. Heart exam notable for regular rhythm, normal sounds and absence of murmurs, rubs or gallops. Abdomen unremarkable and without evidence of organomegaly, masses, or abdominal aortic enlargement, bowel sounds are present in all 4 quadrants, no abdominal tenderness was noted. Extremities nonedematous, no cyanosis was noted, no clubbing was noted. Neuro: Cranial nerves II through XII are grossly intact, no focal motor deficits were noted, sensation to light touch and pinprick is intact, motor exam 5/5 throughout. Psych: Patient is alert and oriented x3, she has a flat affect, she does not appear anxious. Patient was discharged home in stable condition on 10/20/2022, she was instructed to follow-up with pulmonary medicine after her discharge from the hospital. I talked with the patient's daughter and went over her medical problems with the daughter. Weight / BMI Weight Weight: 42.5 kg Body Mass Index (BMI) 17.1 ABG / Lab / Microbiology Data Result Diagrams: 10/20/22 06:15 10/20/22 06:15 Laboratory: Laboratory Results - last 24 hr 10/19/22 16:15: WBC Cancelled, Corrected WBC Cancelled, RBC Cancelled, Hgb Cancelled, Hct Cancelled, MCV Cancelled, MCH Cancelled, MCHC Cancelled, RDW Std Deviation Cancelled, RDW Coeff of Jeff Cancelled, Plt Count Cancelled, MPV Cancelled, Immature Gran % (Auto) Cancelled, Neut % (Auto) Cancelled, Lymph % (Auto) Cancelled, [place] % (Auto) Cancelled, Eos % (Auto) Cancelled, Baso % (Auto) Cancelled, Absolute Neuts (auto) Cancelled, Absolute Lymphs (auto) Cancelled, Total Counted Cancelled, Neutrophils % (Manual) Cancelled, Band Neutrophils % Cancelled, Lymphocytes % (Manual) Cancelled, Monocytes % (Manual) Cancelled, Eosinophils % (Manual) Cancelled, Basophils % (Manual) Cancelled, Metamyelocytes % Cancelled, Myelocytes % Cancelled, Promyelocytes % Cancelled, Blast Cells % Cancelled, Plasma Cell % (Manual) Cancelled, Other Cells % Cancelled, Nucleated RBC % Cancelled, Nucleated RBCs/100 WBC Cancelled, Differential Comment Cancelled, Diff Path Review Cancelled, Hypersegmented Neuts Cancelled, Atypical Lymphocytes Cancelled, Reactive Lymphocytes Cancelled, Smudge Cells Cancelled, Toxic Granulation Cancelled, Toxic Vacuolation Cancelled, Dohle Bodies Cancelled, Micaela Rods Cancelled, Platelet Estimate Cancelled, Plt Morphology Comment Cancelled, RBC Morphology Cancelled, Polychromasia Cancelled, Hy pochromasia Cancelled, Poikilocytosis Cancelled, Basophilic Stippling Cancelled, Anisocytosis Cancelled, Microcytosis Cancelled, Macrocytosis Cancelled, Spherocytes Cancelled, Sickle Cells Cancelled, Target Cells Cancelled, Tear Drop Cells Cancelled, Ovalocytes Cancelled, Stomatocytes Cancelled, Steel-Mosby Bodies Cancelled, Bob Cells Cancelled, Bite Cells Cancelled, Crenated Cell Cancelled, Acanthocytes (Spur) Cancelled, Rouleaux Cancelled, Schistocytes Cancelled 10/19/22 16:15: Sodium 130 L, Potassium 3.3 L, Chloride 96 L, Carbon Dioxide 27.0, Anion Gap 7, BUN 15, Creatinine 0.71, Estim Creat Clear Calc 34.60, Est GFR (MDRD) Af Amer 104, Est GFR (MDRD) Non-Af 86, BUN/Creatinine Ratio 21.2 H, Glucose 126 H, Calcium 8.6, Troponin I High Sens 19 10/19/22 16:15: Uric Acid 4.0 10/19/22 17:12: WBC 9.8, RBC 3.22 L, Hgb 9.5 L, Hct 30.7 L, MCV 95.3, MCH 29.5, MCHC 30.9 L, RDW Std Deviation 53.1 H, RDW Coeff of Jeff 15.3 H, Plt Count 159, MPV 11.2, Immature Gran % (Auto) 0.500, Neut % (Auto) 84.8 H, Lymph % (Auto) 6.4 L, [place] % (Auto) 8.1, Eos % (Auto) 0.0, Baso % (Auto) 0.2, Absolute Neuts (auto) 8.3 H, Absolute Lymphs (auto) 0.63 L, Nucleated RBC % 0 10/19/22 17:12: B-Natriuretic Peptide 386.5 H 10/20/22 06:15: Serum Osmolality 269 L 10/20/22 06:15: WBC 8.2, RBC 3.04 L, Hgb 9.1 L, Hct 28.9 L, MCV 95.1, MCH 29.9, MCHC 31.5 L, RDW Std Deviation 52.7 H, RDW Coeff of Jeff 15.2 H, Plt Count 145 L, MPV 11.4, Immature Gran % (Auto) 0.500, Neut % (Auto) 80.5 H, Lymph % (Auto) 11.0 L, [place] % (Auto) 7.6, Eos % (Auto) 0.2, Baso % (Auto) 0.2, Absolute Neuts (auto) 6.6, Absolute Lymphs (auto) 0.90, Nucleated RBC % 0 10/20/22 06:15: Sodium 131 L, Potassium 4.3, Chloride 98, Carbon Dioxide 29.0, Anion Gap 4 L, BUN 11, Creatinine 0.56, Estim Creat Clear Calc 33.11, Est GFR (MDRD) Af Amer 136, Est GFR (MDRD) Non-Af 112, BUN/Creatinine Ratio 19.6, Glucose 108 H, Calcium 8.6 10/20/22 12:48: Urine Color Yellow, Urine Clarity Clear, Urine pH 6.0, Ur Specific [place] 1.010, Urine Protein 30 H, Urine Glucose (UA) Normal, Urine Ketones Negative, Urine Occult Blood 10 H, Urine Nitrite Negative, Urine Bilirubin Negative, Urine Urobilinogen Normal, Ur Leukocyte Esterase Negative, Urine RBC 0 SEEN, Urine WBC 0-5 SEEN, Ur Squamous Epith Cells 0-5 SEEN, Urine Bacteria 0 SEEN, Urine Mucus 0 SEEN Microbiology: Microbiology 10/19/22 16:15 Nasal Secretion SARS-CoV-2 & FLU Antigen (Rapid) - Final Radiography Diagnostic Testing: Radiology Impression Chest X-Ray 10/19/22 15:35 IMPRESSION: Slight interval worsening in multifocal pneumonia. Improved trace left pleural effusion. Resolved right pleural effusion. Electronically Signed: Robin Hayden MD at 15:53 EDT , D/C Instructions Discharge Diet: No restrictions Weight Bearing Status: Full weight bearing Meaningful Use Info Meaningful Use Diagnoses (Choose all that apply): None applicable Discharge Plan Admission Admit Date/Time: 10/19/22 22:03 Primary Reason for Your Visit: pneumonia Attending Provider: Sd Mejias Primary Care Provider: Magdalena Archer Consulting Providers: Gagandeep Roberts ; Ashish Levine ; Jonathan Davies ; Ancelmo Mart ; Clifford Elder ; Lorie Costello ANVILSMITH Instructions Patient Instructions: Hypokalemia Dc, ED Pneumonia (Adult) Additional Instructions / Restrictions: Continue oxygen at home Discharge Orders/Prescriptions Prescriptions: New prednisone 10 mg tablet 10 mg PO UD Qty: 18 0RF Rx Instructions: Two twice a day for 2 days, then 3 once a day for 2 days, then 2 once a day for 2 days then discontinue doxycycline monohydrate 100 mg tablet 100 mg PO BID Qty: 14 0RF Rx Instructions: Start on 10/21/2022 potassium chloride 10 mEq tablet extended release 20 meq PO DAILY Qty: 60 0RF Continued temazepam 30 MG capsule 30 mg PO QHS PRN PRN (Reason: Sleep) omeprazole 20 MG capsule 20 mg PO DAILY montelukast 10 MG tablet 10 mg PO QHS ipratropium bromide 1 SPRAY spray,non-aerosol 2 spray NASAL DAILY PRN PRN (Reason: Shortness Of Breath) fluoxetine 20 MG capsule 20 mg PO DAILY calcium carbonate-vitamin D3 1 EACH tablet 1 ea PO DAILY Rx Instructions: budesonide-formoterol 1 INHALER inhaler 2 puff inhalation BID levocetirizine 5 MG tablet 5 mg PO DAILY gyowjunl-xha-clfi-FA-lutein 1 EACH tablet 1 ea PO DAILY ljatbjzpoqb-S4-Utzadaayz serr 1 EACH tablet 1 ea PO DAILY quetiapine [Seroquel] 50 mg Tablet 50 mg PO QHS losartan 50 mg tablet 50 mg PO DAILY Label Comments: TAKE 1 TABLET BY MOUTH ONCE DAILY furosemide 40 mg tablet 40 mg PO BID Label Comments: TAKE 1 TABLET BY MOUTH TWICE DAILY metoprolol succinate 100 mg tablet extended release 24 hr 100 mg PO BID Label Comments: TAKE 1 TABLET BY MOUTH TWICE DAILY albuterol sulfate 90 mcg/actuation HFA aerosol inhaler 2 puff INHALATION Q4H PRN PRN (Reason: sob) aspirin 81 mg Capsule 81 mg PO DAILY Referrals / Follow Up: Ashish Levine MD [Med Staff - Active Staff] - 11/06/22 2:40 pm (In 2 weeks as scheduled) Magdalena Archer PA [Primary Care Provider] - 5-7 Days Disposition Disposition (needs filled in before D/C Order can be placed): Home Health Service Charges/Coding Visit Charges Inpatient E&M: 10098 Disch Hosp >30min
--- NOTE | 2022-10-20 14:04 | CASEMGMT ---
Discharge Planning Discharge Summary and date sent to [facility] via [employer]. Jerrica Guzman
== END 2022-10-20 16:11 | disposition home health service (06) ==
LOC: ED 22:03 → MS3 22:39
PROVIDERS: Internal Medicine; Admitting Provider Hospitalist; Emergency Provider Emergency Medicine; PCP Physician Assistant; Visit Provider Internal Medicine
DX: J12.2 Parainfluenza virus pneumonia (principal); F20.9 Schizophrenia, unspecified; J96.01 Acute respiratory failure with hypoxia; E87.6 Hypokalemia; E87.1 Hypo-osmolality and hyponatremia; F41.1 Generalized anxiety disorder; Z79.82 Long term (current) use of aspirin; R53.81 Other malaise; Z95.0 Presence of cardiac pacemaker; D64.9 Anemia, unspecified; Z79.899 Other long term (current) drug therapy; F32.A Depression, unspecified; J45.909 Unspecified asthma, uncomplicated; Z79.51 Long term (current) use of inhaled steroids
CPT/HCPCS: 36415; 71046; 80048; 81001; 83880; 83930; 84484; 84550; 85025; 87070; 87205; 87428; 87449; 87633; 93005; 94640; 94668; 96365; 96366; 96367; 96372; 96375; 97162; 97166; 99221; 99285; A4216; G0378; J0696; J1940; J2405

== ENCOUNTER → 2022-11-06 | Outpatient (CLI) | payer MEDICARE, OTHER, SELFPAY ==
--- NOTE | 2022-11-06 16:30 | RAD_ITS ---
INDICATION: follow up pna, effusion EXAMINATION/TECHNIQUE: X-RAY - XR Chest 2 Views COMPARISON: 10/19/2022. FINDINGS: LINES/DEVICES: Dual lead cardiac pacemaker, wires intact. LUNGS: No consolidation, edema or effusion. Lungs are hyperinflated. No pneumothorax. MEDIASTINUM AND CARDIOVASCULAR STRUCTURES: Cardiac silhouette not enlarged. Central airways and mediastinal contour are unremarkable. BONES AND SOFT TISSUES: Unremarkable. RAD/Chest PA and Lateral IMPRESSION: No acute process. Pulmonary hyperinflation consistent with COPD. Electronically Signed: Carolina Medina MD at 17:27 EDT Reading Location ID and State: [id number] / Tel , Service support ,
== END | disposition home or self-care (01) ==
LOC: RAD 16:20
PROVIDERS: PCP Physician Assistant; Referring Provider Internal Medicine; Visit Provider Internal Medicine
DX: J90 Pleural effusion, not elsewhere classified (principal); J45.909 Unspecified asthma, uncomplicated; Z87.01 Personal history of pneumonia (recurrent)
CPT/HCPCS: 71046

== ENCOUNTER 2023-02-17 10:16 | Emergency (ER) | payer MEDICARE, OTHER, SELFPAY ==
[2023-02-17 10:17] VITALS: BP 130/77; PULSE 65; RESP 18; TEMP 35.5; O2SAT 100
--- NOTE | 2023-02-17 10:42 | EKG12_ITS ---
Test Reason : COUGH Blood Pressure : / mmHG Vent. Rate : 072 BPM Atrial Rate : 072 BPM P-R Int : 178 ms QRS Dur : 130 ms QT Int : 440 ms P-R-T Axes : 075 -53 102 degrees QTc Int : 481 ms Normal sinus rhythm Left axis deviation Left bundle branch block Abnormal ECG Confirmed by KJ TIPTON, EVAN ([id number]), newspaper photo editor YRN OLSEN ([id number]) on 02/20/2023 10:35:24 AM Referred By: Confirmed By:OLIVE UNDERWOOD MD
--- NOTE | 2023-02-17 10:43 | EDS_ITS ---
HPI History of Present Illness Chief Complaint: Cough Narrative Narrative: Chest with a cough that is been getting worse recently, she also has progressive weakness over the past 3 days. She lives by herself and usually walks around just fine with a walker and now its somewhat more difficult but she can still get around. No reported fevers, similar history is limited secondary to her psychiatric disease however I am getting a reasonable history from her daughter who is at the bedside. No history of a fall. No headache or head injury. [facility] Medical History (Updated 02/17/23 @ 12:[address] Aayush Ramachandran MD) Asthma Depression Generalized anxiety disorder Hx of viral pneumonia Hypokalemia Osteoarthritis Pleural effusion Pneumonia Schizophrenia Home Medications budesonide-formoterol HFA 160 mcg-4.5 mcg/actuation aerosol inhaler 2 puff inhalation BID Check with primary doctor 11/29/18 [History Last Taken 10/19/22] calcium carbonate-vitamin D3 600 mg-125 unit tablet 1 ea PO DAILY SUPPLEMENT 11/29/18 [History Last Taken 10/19/22] fluoxetine 20 mg capsule 20 mg PO DAILY MENTAL HEALTH 11/29/18 [History Last Taken 10/19/22] glucosamine QCh-E1-Hcnemndrp raji 1,500 mg-400 unit-100 mg tablet 1 ea PO DAILY SUPPLEMENT 11/29/18 [History Last Taken 10/19/22] ipratropium bromide 42 mcg (0.06 %) nasal spray 2 spray NASAL DAILY PRN PRN Shortness Of Breath 11/29/18 [History Last Taken 08/18/19] levocetirizine 5 mg tablet 5 mg PO DAILY ALLERGIES 11/29/18 [History Last Taken 10/19/22] montelukast 10 mg tablet 10 mg PO QHS ALLERGIES 11/29/18 [History Last Taken 10/18/22] jhsyiaha-ganq-qkhz 8 mg-folic 400 mcg-K 50 mcg-lutein 300 mcg tablet 1 ea PO DAILY SUPPLEMENT 11/29/18 [History Last Taken 10/19/22] omeprazole 20 mg capsule,delayed release 20 mg PO DAILY ACID REFLUX 11/29/18 [History Last Taken 10/19/22] temazepam 30 mg capsule 30 mg PO QHS PRN PRN Sleep 11/29/18 [History Last Taken 10/18/22] quetiapine 50 mg tablet (Seroquel) 50 mg PO QHS mental health 09/13/22 [History Last Taken 10/18/22] albuterol sulfate 90 mcg/actuation aerosol inhaler 2 puff inhalation Q4H PRN PRN sob 10/19/22 [History Last Taken Unknown] aspirin 81 mg capsule 81 mg PO DAILY heart health 10/19/22 [History Last Taken 10/19/22] potassium chloride 10 mEq tablet,extended release 20 meq (2 x 10 mEq) PO DAILY #60 tabs 10/20/22 [Rx Last Taken Unknown] furosemide 40 mg tablet 20 mg PO DAILY diuretic 11/06/22 [History Last Taken Unknown] metoprolol succinate 50 mg tablet,extended release 24 hr 50 mg PO BID 11/06/22 [History Last Taken Unknown] benztropine 0.5 mg tablet 0.5 mg PO BID #20 tabs 02/17/23 [Rx Last Taken Unknown] doxycycline monohydrate 100 mg capsule 100 mg PO BID #14 CAPSULES 02/17/23 [Rx Last Taken Unknown] prednisone 20 mg tablet 20 mg PO DAILY #5 tabs 02/17/23 [Rx Last Taken Unknown] Allergy/AdvReac Type Severity Reaction Status Date / Time grass pollen Allergy Itching Verified 02/17/23 10:20 Family History Father CAD (coronary artery disease) Hypertension Sister Hypertension Surgical History S/P appendectomy S/P nasal septoplasty S/P placement of cardiac pacemaker S/P tubal ligation S/P unilateral salpingo-oophorectomy Social History Smoking Status: Never smoker alcohol intake: current alcohol intake frequency: holidays/special occasions only substance use type: does not use ROS ROS ED ROS Narrative Past medical history: Reviewed Medications: Reviewed Social history: Noncontributory Review of systems: All systems negative except as indicated General: No fever or generalized weakness Eyes: No visual changes ENT: No upper airway congestion, normal voice Neck: No neck pain Cardiovascular: No chest pain Respiratory: Mostly cough that is chronic that got worse recently, she is not think she has any more short of breath currently. Gastrointestinal: No abdominal pain, nausea vomiting or diarrhea Genitourinary: No dysuria Musculoskeletal: Denies myalgias no difficulty with ambulation Skin: No rash Neurological: No memory loss, confu she is more confused per daughter EXAM Physical Exam Narrative Exam Narrative: Physical exam General: Patient is relatively comfortable in the bed. I do appreciate a cough which does not sound productive. Head: Normocephalic, Atraumatic Eyes: Conjunctiva not pale ENT: Somewhat dry mucous membranes. Constant lip smacking and tongue movement consistent with tardive dyskinesia Neck: Supple, Nontender, No lymphadenopathy Cardiovascular: Regular rate, Regular rhythm Respiratory: No distress, CTA bilaterally I do not appreciate any wheezing or rhonchi. Abdomen: Soft, Nontender, Nondistended Back: Nontender, Normal Inspection. Negative for: CVA tenderness Extremities: Nontender, No edema Skin: Normal color, No rash Neurological: Alert, Normal Strength, Normal Sensation Psychological: Flat affect. Const Vital Signs: 02/17/23 10:17 02/17/23 11:00 02/17/23 10:20 Temperature 95.9 F L Temperature Source Oral Pulse Rate 65 72 Respiratory Rate 18 16 Respiratory Effort Normal Respiratory Pattern Normal Blood Pressure 130/77 H Blood Pressure Mean 94 Pulse Ox 100 Oxygen Delivery Method Room Air MDM MDM MDM Narrative Medical decision making narrative: Patient's work-up is unremarkable she at the very least has bronchitis which is chronic but worse recently. I believe it is reasonable to start some antibiotics. I will start a very low-dose of steroids this do not induce psychosis, otherwise patient have any medications for TD, we will address this also. Lab Data Labs: Laboratory Results - last 24 hr 02/17/23 02/17/23 10:50 11:15 WBC 11.4 H RBC 4.20 Hgb 13.5 Hct 38.5 MCV 91.7 MCH 32.1 H MCHC 35.1 RDW Std Deviation 40.7 RDW Coeff of Jeff 12.1 Plt Count 261 MPV 10.3 Immature Gran % (Auto) 0.400 Neut % (Auto) 78.5 H Lymph % (Auto) 13.2 L [place] % (Auto) 7.4 Eos % (Auto) 0.2 Baso % (Auto) 0.3 Absolute Neuts (auto) 9.0 H Absolute Lymphs (auto) 1.51 Nucleated RBC % 0 PT 12.7 INR 1.0 Sodium 132 L Potassium 4.0 Chloride 101 Carbon Dioxide 23.0 Anion Gap 8 BUN 13 Creatinine 0.73 Estim Creat Clear Calc 37.79 Est GFR (MDRD) Af Amer 100 Est GFR (MDRD) Non-Af 82 BUN/Creatinine Ratio 17.7 Glucose 77 Lactic Acid 1.8 Calcium 9.2 Total Bilirubin 0.70 AST 38 H ALT 29 Alkaline Phosphatase 116 Troponin I High Sens 5 B-Natriuretic Peptide 160.6 H Total Protein 7.4 Albumin 3.7 Globulin 3.7 Albumin/Globulin Ratio 1.0 Urine Color Yellow Urine Clarity Clear Urine pH 6.5 Ur Specific [place] 1.010 Urine Protein Negative Urine Glucose (UA) Normal Urine Ketones Negative Urine Occult Blood 10 H Urine Nitrite Negative Urine Bilirubin Negative Urine Urobilinogen Normal Ur Leukocyte Esterase Negative Urine RBC 0 SEEN Urine WBC 0 SEEN Ur Squamous Epith Cells 0 SEEN Urine Bacteria 0 SEEN Urine Mucus 0 SEEN Radiography Diagnostic Testing: Clinical Impression(s) from Imaging Studies Chest X-Ray 02/17/23 11:15 IMPRESSION: No radiographic evidence of acute cardiopulmonary disease. Electronically Signed: Ramandeep Redding MD at 12:03 EDT , Chest x-ray read by mi as normal Discharge Plan Triage Chief Complaint: Cough ED Provider: Aayush Ramachandran Dx/Rx/DC Orders Clinical Impression: Bronchitis, Schizophrenia, Dyskinesia, tardive Instructions: Dystonia, ED Upper Resp Infec Abx Tx Prescriptions: New benztropine 0.5 mg tablet 0.5 mg PO BID Qty: 20 0RF prednisone 20 mg tablet 20 mg PO DAILY Qty: 5 0RF doxycycline monohydrate 100 mg capsule 100 mg PO BID Qty: 14 0RF No Action metoprolol succinate 50 mg tablet extended release 24 hr 50 mg PO BID Patient Comments: TAKE 1 TABLET BY MOUTH TWICE DAILY temazepam 30 MG capsule 30 mg PO QHS PRN PRN (Reason: Sleep) omeprazole 20 MG capsule 20 mg PO DAILY montelukast 10 MG tablet 10 mg PO QHS ipratropium bromide 1 SPRAY spray,non-aerosol 2 spray NASAL DAILY PRN PRN (Reason: Shortness Of Breath) fluoxetine 20 MG capsule 20 mg PO DAILY calcium carbonate-vitamin D3 1 EACH tablet 1 ea PO DAILY Rx Instructions: budesonide-formoterol 1 INHALER inhaler 2 puff inhalation BID levocetirizine 5 MG tablet 5 mg PO DAILY brbpgieo-jkm-arjn-FA-vit K-lut 1 EACH tablet 1 ea PO DAILY jaggqkgfurg-Y7-Bijzgzqxa serr 1 EACH tablet 1 ea PO DAILY quetiapine [Seroquel] 50 mg Tablet 50 mg PO QHS albuterol sulfate 90 mcg/actuation HFA aerosol inhaler 2 puff INHALATION Q4H PRN PRN (Reason: sob) aspirin 81 mg Capsule 81 mg PO DAILY potassium chloride 10 mEq tablet extended release 20 meq PO DAILY Qty: 60 0RF furosemide 40 mg tablet 20 mg PO DAILY Patient Comments: TAKE 1 TABLET BY MOUTH TWICE DAILY Primary Care Provider: Magdalena Archer Referrals: Magdalena Archer PA [Primary Care Provider] - 3-5 Days Disposition Disposition: Home, Self Care
[2023-02-17 11:00] VITALS: PULSE 72; RESP 16
[2023-02-17] MEDS: Albuterol 2.5 MG/3 ML VIAL.NEB. INHALATION (11:01)
[2023-02-17 11:04] LABS: Bacteria 0 SEEN /hpf (None Seen); Mucous, Urine 0 SEEN /hpf (<or=2+); Red Blood Cells-Urine 0 SEEN /hpf (0-5); Squamous Epithelial Cells - UA 0 SEEN /hpf (5-10); White Blood Cells 0 SEEN /hpf (0-5)
--- NOTE | 2023-02-17 11:15 | RAD_ITS ---
INDICATION: Shortness of breath EXAMINATION/TECHNIQUE: X-RAY - XR Chest 2 Views COMPARISON: November 06, 2022 FINDINGS: LINES/DEVICES: There is a grossly stable cardiac pacer device in place. LUNGS: The lungs remain hyperinflated. No new consolidation, edema or effusion. No pneumothorax. MEDIASTINUM AND CARDIOVASCULAR STRUCTURES: Cardiac silhouette not enlarged. Central airways and mediastinal contour are unremarkable. BONES AND SOFT TISSUES: Unremarkable. RAD/Chest PA and Lateral IMPRESSION: No radiographic evidence of acute cardiopulmonary disease. Electronically Signed: Ramandeep Redding MD at 12:03 EDT ,
[2023-02-17 11:21] VITALS: BMI 19.5
[2023-02-17 11:23] LABS: Color, Urine Yellow (Yellow); Glucose, Dipstick Normal (Normal); Ketone-Dipstick Negative (Negative); Leukocyte Esterase-Dipstick Negative /ul (Negative); Nitrite-Dipstick Negative (Negative); Occult Blood-Urine 10 /ul (Negative); Protein-Dipstick Negative (Negative); Urine Bilirubin Dipstick Negative (Negative); Urine Clarity Clear (Clear); Urine Urobilinogen Normal (Normal); Urine pH 6.5 (5.0 - 8.0)
[2023-02-17 12:01] LABS: Absolute Lymphocyte Count 1.51 X10^3/uL (0.83-4.51); Basophil# 0.03 X10^3/uL; Basophil% 0.3 % (0-1); Eosinophil# 0.02 X10^3/uL; Eosinophils% 0.2 % (0-5); Hematocrit 38.5 % (37-47); Hemoglobin 13.5 g/dL (12.0-15.0); Lymphocyte # 1.51 X10^3/ul (0.83-4.51); Lymphocyte % 13.2 % (19-41); Mean Corp Hgb Conc 35.1 g/dL (32-36); Mean Corpuscular Hgb 32.1 pg (27.0-32.0); Mean Corpuscular Volume 91.7 fL (81-99); Mean Platelet Vol. 10.3 fl (6.2-12.0); Monocyte# 0.85 X10^3/uL; Monocyte% 7.4 % (0-10); NRBC Flagged by Analyzer 0 % (0-5); Neutrophil # 8.98 X10^3/uL (2.7-7.7); Neutrophil % 78.5 % (47-70); Platelet Count 261 K/mm3 (150-450); RBC Distribution Width CV 12.1 % (11.6-14.6); RBC Distribution Width SD 40.7 fl (35.1-43.9); White Blood Count 11.4 K/mm3 (4.4-11.0)
[2023-02-17 12:06] LABS: Lactic Acid 1.8 mmol/L (0.4-1.9)
[2023-02-17 12:14] LABS: Prothrombin Time (Protime)PT. 12.7 SECONDS (11.7-14.9)
[2023-02-17 12:17] LABS: BNP,B-Type NATRIURETIC PEPTIDE 160.6 pg/mL (0-100)
[2023-02-17 12:20] LABS: AST(SGOT) 38 U/L (15-37); Alanine Aminotransfer ALT/SGPT 29 U/L (13-56); Albumin, Serum 3.7 g/dL (3.2-5.0); Alkaline Phosphatase 116 U/L (45-117); Anion Gap 8 (5-15); BUN 13 mg/dL (7-18); BUN/Creat Ratio 17.7 RATIO (10-20); Calcium,Total 9.2 mg/dL (8.5-10.1); Chloride 101 mmol/L (98-107); Creatinine, Serum 0.73 mg/dL (0.55-1.02); EST Glomerular Filtration Rate 82 mL/min (>60); Est Glom Filt Rate - Afr Amer 100 mL/min (>60); Estimated Creatinine Clearance 37.79 ml/min; Globulin 3.7 g/dL (2.2-4.2); Glucose 77 mg/dL (74-106); Protein, Total 7.4 g/dL (6.4-8.2); Sodium Level 132 mmol/L (136-145); Troponin-I HS 5 pg/mL (3.0-54.0)
[2023-02-17 12:30] VITALS: PULSE 82; RESP 21; O2SAT 98
== END 2023-02-17 13:26 | disposition home or self-care (01) ==
LOC: ED 12:39
PROVIDERS: Emergency Provider Emergency Medicine; PCP Physician Assistant; Visit Provider Emergency Medicine
DX: J42 Unspecified chronic bronchitis (principal); F20.9 Schizophrenia, unspecified; G24.01 Drug induced subacute dyskinesia; J45.909 Unspecified asthma, uncomplicated; Z79.52 Long term (current) use of systemic steroids
CPT/HCPCS: 71046; 80053; 81001; 83605; 83880; 84484; 85025; 85610; 93005; 94640; 99283; A4216

== ENCOUNTER 2023-03-09 13:06 | Inpatient (IN) | payer MEDICARE, OTHER, SELFPAY ==
[2023-03-09] VITALS (15 sets, daily range): BP systolic 107–167; BP diastolic 55–114; PULSE 73–84; RESP 16–31; TEMP 36.5–36.7; O2SAT 92–100; BMI 18.3; BMI 17.9
--- NOTE | 2023-03-09 13:29 | EKG12_ITS ---
Test Reason : Blood Pressure : / mmHG Vent. Rate : 071 BPM Atrial Rate : 071 BPM P-R Int : 158 ms QRS Dur : 128 ms QT Int : 456 ms P-R-T Axes : 074 -53 075 degrees QTc Int : 495 ms Sinus rhythm with Premature atrial complexes Left axis deviation Left bundle branch block Abnormal ECG Confirmed by HEMANTH TIPTON, DESIREE ([id number]), tape editor LINDA EDGE ([id number]) on 03/13/2023 8:03:39 AM Referred By: Confirmed By:DESIREE SAXENA MD
[2023-03-09 13:48] LABS: Absolute Lymphocyte Count 1.62 X10^3/uL (0.83-4.51); Absolute Neutrophil Count 10.4 X10^3/uL (2.0-7.7); Basophil# 0.08 X10^3/uL; Basophil% 0.6 % (0-1); Eosinophil# 0.08 X10^3/uL; Eosinophils% 0.6 % (0-5); Lymphocyte # 1.62 X10^3/ul (0.83-4.51); Lymphocyte % 12.5 % (19-41); Mean Corp Hgb Conc 31.6 g/dL (32-36); Mean Corpuscular Hgb 30.7 pg (27.0-32.0); Mean Corpuscular Volume 97.2 fL (81-99); Mean Platelet Vol. 9.7 fl (6.2-12.0); Monocyte# 0.77 X10^3/uL; Monocyte% 5.9 % (0-10); NRBC Flagged by Analyzer 0 % (0-5); Neutrophil # 10.35 X10^3/uL (2.7-7.7); Neutrophil % 79.9 % (47-70); Platelet Count 473 K/mm3 (150-450); RBC Distribution Width CV 12.5 % (11.6-14.6); RBC Distribution Width SD 44.5 fl (35.1-43.9); Red Blood Count 3.91 M/mm3 (4.2-5.4)
--- NOTE | 2023-03-09 13:50 | RAD_ITS ---
HISTORY: chest pain. TECHNIQUE: XR Chest 1 View. COMPARISON: 02/17/2023. FINDINGS: CARDIOMEDIASTINAL BORDERS: Cardiac silhouette within normal limits in size with pacemaker again seen. New moderate regions of consolidation in the right upper and left midlung. LUNGS: Radiographically clear. PLEURA: No pleural effusion or pneumothorax seen. OSSEOUS STRUCTURES: Degenerative change. RAD/Chest 1 View (Portable) IMPRESSION: Moderate opacities of the right upper and left midlung, concerning for pneumonia. Recommend follow-up to resolution. Electronically Signed: Lolis Dorado MD at 14:05 EDT ,
[2023-03-09 14:04] LABS: Anion Gap 11 (5-15); BUN 6 mg/dL (7-18); BUN/Creat Ratio 9.6 RATIO (10-20); Calcium,Total 9.7 mg/dL (8.5-10.1); Chloride 105 mmol/L (98-107); Creatinine, Serum 0.62 mg/dL (0.55-1.02); EST Glomerular Filtration Rate 99 mL/min (>60); Est Glom Filt Rate - Afr Amer 120 mL/min (>60); Estimated Creatinine Clearance 35.53 ml/min; Glucose 101 mg/dL (74-106); Potassium 3.7 mmol/L (3.5-5.1); Sodium Level 141 mmol/L (136-145); Troponin-I HS 7 pg/mL (3.0-54.0)
[2023-03-09 14:11] LABS: D-Dimer Quantitative (DVT/PE) 0.59 FEU/ug/m (0.27-0.49)
[2023-03-09 14:20] LABS: BNP,B-Type NATRIURETIC PEPTIDE 265.7 pg/mL (0-100)
--- NOTE | 2023-03-09 15:07 | EDS_ITS ---
HPI History of Present Illness Chief Complaint: Shortness of Breath Narrative Narrative: 22-year-old female presenting with cough and shortness of breath. She states she had a dry cough with clear sputum sometimes. Is been going on for about 2 days. Worse last night with difficulty breathing. She did a breathing treatment and this helped. Today she feels more short of breath. Patient states he has a history of asthma. Previously had been on oxygen but she got off of this after seeing respiratory and at that time she had had pneumonia. No fevers at home. No chest pain. [facility] Medical History Asthma Depression Generalized anxiety disorder Hx of viral pneumonia Hypokalemia Osteoarthritis Pleural effusion Pneumonia Schizophrenia Home Medications budesonide-formoterol HFA 160 mcg-4.5 mcg/actuation aerosol inhaler 2 puff inhalation BID Check with primary doctor 11/29/18 [History Last Taken 03/08/23] calcium carbonate-vitamin D3 600 mg-125 unit tablet 1 ea PO DAILY SUPPLEMENT 11/29/18 [History Last Taken 03/08/23] fluoxetine 20 mg capsule 20 mg PO DAILY MENTAL HEALTH 11/29/18 [History Last Taken 03/08/23] glucosamine QRu-A4-Vxouiqllr raji 1,500 mg-400 unit-100 mg tablet 1 ea PO DAILY SUPPLEMENT 11/29/18 [History Last Taken 03/08/23] ipratropium bromide 42 mcg (0.06 %) nasal spray 2 spray NASAL DAILY PRN PRN Shortness Of Breath 11/29/18 [History Last Taken 08/18/19] levocetirizine 5 mg tablet 5 mg PO DAILY ALLERGIES 11/29/18 [History Last Taken 03/08/23] montelukast 10 mg tablet 10 mg PO QHS ALLERGIES 11/29/18 [History Last Taken 10/18/22] qhtbhwrg-refe-hfvn 8 mg-folic 400 mcg-K 50 mcg-lutein 300 mcg tablet 1 ea PO DAILY SUPPLEMENT 11/29/18 [History Last Taken 03/08/23] omeprazole 20 mg capsule,delayed release 20 mg PO DAILY ACID REFLUX 11/29/18 [History Last Taken 03/08/23] temazepam 30 mg capsule 30 mg PO QHS PRN PRN Sleep 11/29/18 [History Last Taken 03/08/23] quetiapine 50 mg tablet (Seroquel) 50 mg PO QHS mental health 09/13/22 [History Last Taken 03/08/23] albuterol sulfate 90 mcg/actuation aerosol inhaler 2 puff inhalation Q4H PRN PRN sob 10/19/22 [History Last Taken Unknown] aspirin 81 mg capsule 81 mg PO DAILY heart health 10/19/22 [History Last Taken 03/08/23] potassium chloride 10 mEq tablet,extended release 20 meq (2 x 10 mEq) PO DAILY #60 tabs 10/20/22 [Rx Last Taken 03/08/23] furosemide 40 mg tablet 20 mg PO DAILY diuretic 11/06/22 [History Last Taken 03/08/23] metoprolol succinate 50 mg tablet,extended release 24 hr 25 mg PO BID 11/06/22 [History Last Taken 03/08/23] valbenazine 40 mg capsule (Ingrezza) 40 mg PO DAILY 03/09/23 [History Last Taken 03/08/23] Allergy/AdvReac Type Severity Reaction Status Date / Time grass pollen Allergy Itching Verified 02/17/23 10:20 Family History Father CAD (coronary artery disease) Hypertension Sister Hypertension Surgical History S/P appendectomy S/P nasal septoplasty S/P placement of cardiac pacemaker S/P tubal ligation S/P unilateral salpingo-oophorectomy Social History Smoking Status: Never smoker alcohol intake: current alcohol intake frequency: holidays/special occasions only substance use type: does not use ROS ROS ED Constitutional Constitutional ED: Denies chills, fever(s) or sweats Eyes Eyes: Denies blurry vision or change in vision ENT ENT ED: Denies ear pain or sore throat Cardiovascular Cardiovascular: Denies chest pain, palpitations or racing heartbeat Respiratory/Chest Respiratory/Chest: Reports cough, dyspnea and dyspnea on exertion; Denies sputum Gastrointestinal Gastrointestinal: Denies abdominal pain, constipation, diarrhea, nausea or vomiting Genitourinary Genitourinary ED: Denies dysuria, hematuria or urinary frequency Musculoskeletal Musculoskeletal: Denies arthralgias, myalgias or neck pain Integumentary Denies abscess, Abrasions or rash Neurologic Neurologic: Denies headache(s), paresthesias or weakness Psychiatric Psychiatric: Denies anxiety, depression, suicidal ideation or suicidal thoughts Endocrine Endocrinology: Denies polydipsia or polyuria EXAM Physical Exam Const Vital Signs: 03/09/23 13:09 03/09/23 13:07 03/09/23 13:31 Temperature 97.7 F L 97.8 F Temperature Source Oral Oral Pulse Rate 76 84 Respiratory Rate 30 H 24 H Respiratory Effort Respiratory Depth Respiratory Pattern Blood Pressure 145/114 H 125/55 H Blood Pressure Mean 124 78 Pulse Ox 99 97 95 Oxygen Delivery Method Room Air Room Air Room Air Oxygen Flow Rate (L/min) 03/09/23 13:33 03/09/23 14:27 Temperature 98 F Temperature Source Temporal Pulse Rate 77 Respiratory Rate 31 H Respiratory Effort Short of Breath Labored Respiratory Depth Shallow Respiratory Pattern Tachypnea Blood Pressure 165/78 H Blood Pressure Mean 107 Pulse Ox 97 Oxygen Delivery Method Room Air Room Air Oxygen Flow Rate (L/min) 2 Positive well nourished General Appearance ED: Negative for pallor HEENT Reports moist mucous membranes Eyes PERRL and EOMs intact bilaterally Neck no lymphadenopathy and supple Resp normal respiratory effort Resp Narrative: Tachypneic Auscultation: wheezes scattered wheezes Cardio regular rate and regular rhythm GI non-tender Neuro oriented x3 and CN's II-XII intact bilaterally Sensorium / Orientation: alert Motor Exam: strength 5/5 throughout and general weakness Psych mental status grossly normal Skin no wounds and skin turgor normal General Skin Exam: Negative for pallor MDM MDM MDM Narrative Medical decision making narrative: Patient presenting cough and shortness of breath. Differential includes pneumonia, COVID, influenza. He is not complaining of chest pain. ACS, CHF are still in the differential. CBC will be obtained to assess white blood cell count, hemoglobin, platelets. BMP to assess renal function and electrolytes. High-sensitivity troponin and EKG to assess for ischemia. Chest x-ray to rule out pneumonia or CHF. BNP to assess for CHF. CBC shows slight leukocytosis at 13.0. Hemoglobin stable at 12. Renal function and electrolytes unremarkable. High-sensitivity troponin is 7. EKG shows a normal sinus rhythm with a ventricular rate of 71 bpm with occasional PACs on my interpretation. Chest x- ray on my interpretation shows right apical and left midlung infiltrates. Patient's last admission was in September. Is when she is community-acquired. She is given Rocephin and azithromycin. Patient requested breathing treatments he does have some mild scattered wheezes so I will treat her with breathing treatments and Solu-Medrol. She reports a history of asthma. Patient ambulated and desats to 82% on room air. For this reason I will have her admitted to the hospital. Discussed with the hospitalist. She is admitted in stable condition. Impression: 1. Dyspnea 2. Bilateral pneumonia 3. Hypoxia Lab Data Attestation: I reviewed the patient's lab results. Labs: Laboratory Results - last 24 hr 03/09/23 12:55 WBC 13.0 H RBC 3.91 L Hgb 12.0 Hct 38.0 MCV 97.2 MCH 30.7 MCHC 31.6 L RDW Std Deviation 44.5 H RDW Coeff of Jeff 12.5 Plt Count 473 H MPV 9.7 Immature Gran % (Auto) 0.500 Neut % (Auto) 79.9 H Lymph % (Auto) 12.5 L [place] % (Auto) 5.9 Eos % (Auto) 0.6 Baso % (Auto) 0.6 Absolute Neuts (auto) 10.4 H Absolute Lymphs (auto) 1.62 Nucleated RBC % 0 D-Dimer Quant (PE/DVT) 0.59 H* Sodium 141 Potassium 3.7 Chloride 105 Carbon Dioxide 25.0 Anion Gap 11 BUN 6 L Creatinine 0.62 Estim Creat Clear Calc 35.53 Est GFR (MDRD) Af Amer 120 Est GFR (MDRD) Non-Af 99 BUN/Creatinine Ratio 9.6 L Glucose 101 Calcium 9.7 Troponin I High Sens 7 B-Natriuretic Peptide 265.7 H Radiography Diagnostic Testing: Clinical Impression(s) from Imaging Studies Chest X-Ray 03/09/23 13:50 IMPRESSION: Moderate opacities of the right upper and left midlung, concerning for pneumonia. Recommend follow-up to resolution. Electronically Signed: Lolis Dorado MD at 14:05 EDT , Discharge Plan Triage Chief Complaint: Shortness of Breath ED Provider: Anil Condon Dx/Rx/DC Orders Prescriptions: No Action metoprolol succinate 50 mg tablet extended release 24 hr 25 mg PO BID Patient Comments: TAKE 1 TABLET BY MOUTH TWICE DAILY temazepam 30 MG capsule 30 mg PO QHS PRN PRN (Reason: Sleep) omeprazole 20 MG capsule 20 mg PO DAILY montelukast 10 MG tablet 10 mg PO QHS ipratropium bromide 1 SPRAY spray,non-aerosol 2 spray NASAL DAILY PRN PRN (Reason: Shortness Of Breath) fluoxetine 20 MG capsule 20 mg PO DAILY calcium carbonate-vitamin D3 1 EACH tablet 1 ea PO DAILY Rx Instructions: budesonide-formoterol 1 INHALER inhaler 2 puff inhalation BID levocetirizine 5 MG tablet 5 mg PO DAILY jxbcnmwp-nzt-nrks-FA-vit K-lut 1 EACH tablet 1 ea PO DAILY mmfpuuwbhaa-[id number]-Yhqagrwab serr 1 EACH tablet 1 ea PO DAILY quetiapine [Seroquel] 50 mg Tablet 50 mg PO QHS albuterol sulfate 90 mcg/actuation HFA aerosol inhaler 2 puff INHALATION Q4H PRN PRN (Reason: sob) aspirin 81 mg Capsule 81 mg PO DAILY potassium chloride 10 mEq tablet extended release 20 meq PO DAILY Qty: 60 0RF furosemide 40 mg tablet 20 mg PO DAILY Patient Comments: TAKE 1 TABLET BY MOUTH TWICE DAILY Ingrezza 40 mg capsule 40 mg PO DAILY Primary Care Provider: Magdalena Archer Referrals: Magdalena Archer PA [Primary Care Provider] -
[2023-03-09] MEDS: Ceftriaxone 1 GM/50 ML BAG IV (15:13)
[2023-03-09] MEDS: Albuterol 2.5 MG/3 ML VIAL.NEB. INHALATION ×2 (15:20→19:18)
[2023-03-09] MEDS: Ipratropium/Albuterol Sulfate 3 ML AMPUL.NEB INHALATION (15:20)
[2023-03-09] MEDS: MethylPREDNISolone 125 MG/2 ML Vial IV (15:26)
--- NOTE | 2023-03-09 16:37 | HP.PCM.HOS_ITS ---
HPI - General General Date of Admission: 03/09/23 HPI Narrative MICA YORK, is a 72 F who presents to the hospital with increasing shortness of breath with ambulation. She has been having issues with cough and pneumonia over the last several months, she was recently in the ER at the end of January with bronchitis and she feels like it got a little bit better and then it worsened again. She presented to the ER with some left-sided chest pain reproducible with palpation likely costochondritis and shortness of breath. Her sputum is clear but she was found to have a leukocytosis to 13, and chest x-ray demonstrates moderate opacities in her right upper and left mid lung consistent with pneumonia. She does not have any oxygen requirements while at rest but she did drop to 82% in the ER with ambulation. [facility] Medical History (Updated 03/09/23 @ 16:[address] Arley Ames MD) Asthma Chronic GERD Depression Generalized anxiety disorder Hx of viral pneumonia Hypokalemia Osteoarthritis Pleural effusion Pneumonia Schizophrenia Home Medications budesonide-formoterol HFA 160 mcg-4.5 mcg/actuation aerosol inhaler 2 puff inhalation BID Check with primary doctor 11/29/18 [History Last Taken 03/08/23] calcium carbonate-vitamin D3 600 mg-125 unit tablet 1 ea PO DAILY SUPPLEMENT 11/29/18 [History Last Taken 03/08/23] fluoxetine 20 mg capsule 20 mg PO DAILY MENTAL HEALTH 11/29/18 [History Last Taken 03/08/23] glucosamine OWf-W9-Irelsvmtj raji 1,500 mg-400 unit-100 mg tablet 1 ea PO DAILY SUPPLEMENT 11/29/18 [History Last Taken 03/08/23] ipratropium bromide 42 mcg (0.06 %) nasal spray 2 spray NASAL DAILY PRN PRN nasal congestion 11/29/18 [History Last Taken 08/18/19] levocetirizine 5 mg tablet 5 mg PO DAILY ALLERGIES 11/29/18 [History Last Taken 03/08/23] montelukast 10 mg tablet 10 mg PO QHS ALLERGIES 11/29/18 [History Last Taken 10/18/22] nathfdeb-kqja-sezr 8 mg-folic 400 mcg-K 50 mcg-lutein 300 mcg tablet 1 ea PO DAILY SUPPLEMENT 11/29/18 [History Last Taken 03/08/23] omeprazole 20 mg capsule,delayed release 20 mg PO DAILY ACID REFLUX 11/29/18 [History Last Taken 03/08/23] temazepam 30 mg capsule 30 mg PO QHS PRN PRN Sleep 11/29/18 [History Last Taken 03/08/23] quetiapine 50 mg tablet (Seroquel) 50 mg PO QHS mental health 09/13/22 [History Last Taken 03/08/23] albuterol sulfate 90 mcg/actuation aerosol inhaler 2 puff inhalation Q4H PRN PRN sob 10/19/22 [History Last Taken Unknown] aspirin 81 mg capsule 81 mg PO DAILY heart health 10/19/22 [History Last Taken 03/08/23] potassium chloride 10 mEq tablet,extended release 20 meq (2 x 10 mEq) PO DAILY #60 tabs 10/20/22 [Rx Last Taken 03/08/23] furosemide 40 mg tablet 20 mg PO DAILY diuretic 11/06/22 [History Last Taken 03/08/23] metoprolol succinate 50 mg tablet,extended release 24 hr 25 mg PO BID 11/06/22 [History Last Taken 03/08/23] valbenazine 40 mg capsule (Ingrezza) 40 mg PO DAILY 03/09/23 [History Last Taken 03/08/23] Allergy/AdvReac Type Severity Reaction Status Date / Time grass pollen Allergy Itching Verified 02/17/23 10:20 Family History Father CAD (coronary artery disease) Hypertension Sister Hypertension Surgical History S/P appendectomy S/P nasal septoplasty S/P placement of cardiac pacemaker S/P tubal ligation S/P unilateral salpingo-oophorectomy Social History Smoking Status: Never smoker alcohol intake: current alcohol intake frequency: holidays/special occasions only substance use type: does not use ROS Constitutional Constitutional: Reports fever(s); Denies chills, fatigue or malaise Eyes Eyes: Denies blurry vision ENT HEENT: Denies headache(s) or nasal discharge Cardiovascular Cardiovascular: Denies chest pain, dyspnea on exertion or syncope Respiratory/Chest Respiratory/Chest: Reports productive cough and shortness of breath with exertion; Denies shortness of breath at rest Gastrointestinal Gastrointestinal: Denies constipation, diarrhea, nausea or vomiting Genitourinary Genitourinary: Denies dysuria Neurologic Neurologic: Denies focal weakness, numbness or tremor(s) Psychiatric Psychiatric: Denies anxiety or depression Vital Signs Vital Signs Vital Signs: 03/09/23 13:09 03/09/23 13:07 03/09/23 13:31 Temperature 97.7 F L 97.8 F Temperature Source Oral Oral Pulse Rate 76 84 Respiratory Rate 30 H 24 H Respiratory Effort Respiratory Depth Respiratory Pattern Blood Pressure 145/114 H 125/55 H Blood Pressure Mean 124 78 Blood Pressure Source Blood Pressure Position Blood Pressure Location Pulse Ox 99 97 95 Oxygen Delivery Method Room Air Room Air Room Air Oxygen Flow Rate (L/min) 03/09/23 13:33 03/09/23 14:27 03/09/23 15:22 Temperature 98 F Temperature Source Temporal Pulse Rate 77 80 Respiratory Rate 31 H 20 H Respiratory Effort Short of Breath Labored Respiratory Depth Shallow Respiratory Pattern Tachypnea Tachypnea Blood Pressure 165/78 H Blood Pressure Mean 107 Blood Pressure Source Blood Pressure Position Blood Pressure Location Pulse Ox 97 Oxygen Delivery Method Room Air Room Air Oxygen Flow Rate (L/min) 2 03/09/23 15:00 03/09/23 15:28 03/09/23 16:05 Temperature 97.9 F 98.1 F 98.1 F Temperature Source Temporal Oral Pulse Rate 73 76 84 Respiratory Rate 29 H 24 H 18 Respiratory Effort Respiratory Depth Respiratory Pattern Blood Pressure 167/67 H 166/75 H 158/81 H Blood Pressure Mean 100 105 106 Blood Pressure Source Monitor Blood Pressure Position Semi-Fowlers Blood Pressure Location Right Arm Pulse Ox 100 100 94 Oxygen Delivery Method Nasal Cannula Room Air Oxygen Flow Rate (L/min) 2 03/09/23 16:14 Temperature Temperature Source Pulse Rate Respiratory Rate Respiratory Effort Normal Respiratory Depth Normal Respiratory Pattern Normal Blood Pressure Blood Pressure Mean Blood Pressure Source Blood Pressure Position Blood Pressure Location Pulse Ox Oxygen Delivery Method Room Air Oxygen Flow Rate (L/min) Weight Weight: 98 lb Body Mass Index (BMI) 17.9 Physical Exam Narrative General: Alert, Oriented x3, Cooperative, No apparent distress HEENT: Atraumatic, PERRLA, EOMI, Normocephalic Oral: Dry mucosa Neck: Supple, No JVD Lungs: Diminished, Normal air movement, No rhonchi, No wheeze, No rales Cardiovascular: Regular rate, Regular Rhythm, Normal S1, Normal S2, No murmurs Abdomen: Soft, Non Tender, Non-Distended, No Hepato-splenomegaly Extremities: No edema, Capillary Refill Less than 3 Seconds Skin: No rashes, No breakdown Musculoskeletal: No Tenderness to Palpation of Joints or Extremities Neurological: Motor Exam 5/5 strength throughout, Sensory exam intact to light touch and pain, abnormal speech related to tardive dyskinesia from Haldol Psych/Mental Status: Normal Affect, Appropriate Results Lab / Micro Data 03/09/23 12:55 03/09/23 12:55 Labs: Laboratory Results - last 24 hr 03/09/23 12:55: WBC 13.0 H, RBC 3.91 L, Hgb 12.0, Hct 38.0, MCV 97.2, MCH 30.7, MCHC 31.6 L, RDW Std Deviation 44.5 H, RDW Coeff of Jeff 12.5, Plt Count 473 H, MPV 9.7, Immature Gran % (Auto) 0.500, Neut % (Auto) 79.9 H, Lymph % (Auto) 12.5 L, [place] % (Auto) 5.9, Eos % (Auto) 0.6, Baso % (Auto) 0.6, Absolute Neuts (auto) 10.4 H, Absolute Lymphs (auto) 1.62, Nucleated RBC % 0, D-Dimer Quant (PE/DVT) 0.59 H*, Sodium 141, Potassium 3.7, Chloride 105, Carbon Dioxide 25.0, Anion Gap 11, BUN 6 L, Creatinine 0.62, Estim Creat Clear Calc 35.53, Est GFR (MDRD) Af Amer 120, Est GFR (MDRD) Non-Af 99, BUN/Creatinine Ratio 9.6 L, Glucose 101, Calcium 9.7, Troponin I High Sens 7, B-Natriuretic Peptide 265.7 H Micro: Microbiology 03/09/23 14:15 Nasal Secretion SARS-CoV-2 & FLU Antigen (Rapid) - Final Radiology Impression Chest X-Ray 03/09/23 13:50 IMPRESSION: Moderate opacities of the right upper and left midlung, concerning for pneumonia. Recommend follow-up to resolution. Electronically Signed: Lolis Dorado MD at 14:05 EDT , Assessment & Plan Assessment/Plan (1) Community acquired pneumonia: PLAN: Plan 1. Community-acquired pneumonia/asthma ? We will obtain a Legionella and strep antigen ? Obtain a sputum culture ? She does not require any oxygen at rest however she does become significantly hypoxic with ambulation on 82% necessitating admission ? Continue with Rocephin and azithromycin ? Can resume her home inhalers as well as Singulair 2. HTN ? Blood pressures are stable, can resume her home Lasix and metoprolol ? We will monitor and make adjustments as necessary 3. Schizophrenia ? She did develop tardive dyskinesia on the Haldol so this was discontinued and she was started on Ingrezza well as a low-dose of Seroquel however this has not been adjusted so she is transitioning to a new psychiatrist here in town ? Continue with Prozac 4. GERD ? Stable ? Continue with PPI DVT: Heparin 76 minutes was spent on direct patient care, including documentation as well as chart review and collaboration with colleagues Charges/Coding Visit Charges Inpatient E&M: 38959 Init Hosp L3
[2023-03-09] MEDS: Azithromycin 500 MG in Dextrose 5%-Water (250mL Bag) 250 ML 250 MG IV (16:39)
[2023-03-09] MEDS: Budesonide Respules 0.5 MG/2 ML AMPUL.NEB. INHALATION (19:18)
[2023-03-09] MEDS: Heparin Injection (Vial) 5,000 UNIT/ML VIAL 5000 UNIT SC (22:12)
[2023-03-09] MEDS: Metoprolol(XL)Succ 25 MG Tablet PO (22:13)
[2023-03-09] MEDS: Montelukast 10 MG Tablet PO (22:13)
[2023-03-09] MEDS: QUEtiapine 25 MG Tablet 50 MG PO (22:13)
[2023-03-10] VITALS (9 sets, daily range): BP systolic 97–118; BP diastolic 47–60; PULSE 70–80; RESP 16–18; TEMP 36.6–37.3; O2SAT 94–100
[2023-03-10] MEDS: Temazepam 15 MG Capsule 30 MG PO ×2 (01:46→21:36)
[2023-03-10] MEDS: VALBENAZINE TOSYLATE 40 MG CAPSULE PO ×2 (02:54→21:33)
[2023-03-10 05:45] LABS: Absolute Lymphocyte Count 0.73 X10^3/uL (0.83-4.51); Absolute Neutrophil Count 7.5 X10^3/uL (2.0-7.7); Basophil# 0.01 X10^3/uL; Basophil% 0.1 % (0-1); Hematocrit 31.6 % (37-47); Hemoglobin 10.1 g/dL (12.0-15.0); Lymphocyte # 0.73 X10^3/ul (0.83-4.51); Lymphocyte % 8.6 % (19-41); Mean Corpuscular Hgb 30.6 pg (27.0-32.0); Mean Corpuscular Volume 95.8 fL (81-99); Mean Platelet Vol. 9.7 fl (6.2-12.0); Monocyte# 0.25 X10^3/uL; Monocyte% 2.9 % (0-10); NRBC Flagged by Analyzer 0 % (0-5); Neutrophil # 7.46 X10^3/uL (2.7-7.7); Neutrophil % 87.9 % (47-70); Platelet Count 324 K/mm3 (150-450); RBC Distribution Width CV 12.5 % (11.6-14.6); RBC Distribution Width SD 43.1 fl (35.1-43.9); White Blood Count 8.5 K/mm3 (4.4-11.0)
[2023-03-10] MEDS: Heparin Injection (Vial) 5,000 UNIT/ML VIAL 5000 UNIT SC ×3 (06:12→21:33)
[2023-03-10 06:33] LABS: Anion Gap 4 (5-15); BUN 8 mg/dL (7-18); BUN/Creat Ratio 17.1 RATIO (10-20); Calcium,Total 8.7 mg/dL (8.5-10.1); Chloride 105 mmol/L (98-107); Creatinine, Serum 0.47 mg/dL (0.55-1.02); EST Glomerular Filtration Rate 138 mL/min (>60); Est Glom Filt Rate - Afr Amer 167 mL/min (>60); Estimated Creatinine Clearance 34.64 ml/min; Glucose 135 mg/dL (74-106); Potassium 3.8 mmol/L (3.5-5.1); Sodium Level 136 mmol/L (136-145)
[2023-03-10] MEDS: Albuterol 2.5 MG/3 ML VIAL.NEB. INHALATION ×2 (07:18→13:19)
[2023-03-10] MEDS: Budesonide Respules 0.5 MG/2 ML AMPUL.NEB. INHALATION (07:18)
--- NOTE | 2023-03-10 07:41 | PCM.PN.HOSP ---
Reason for Visit Reason for Visit: Diagnoses Pneumonia, unspecified organism (03/09/23) Subjective Subjective Patient is a 72-year-old lady who presented with shortness of breath and cough. Imaging studies demonstrated moderate opacities of the right And left midlung consistent with pneumonia admitted to regular nursing floor for further manage Objective Data Objective Data Vital Signs: Vital Signs Temp Pulse Resp BP Pulse Ox O2 Del Method O2 Flow Rate 97.9 F 75 16 114/60 97 Room Air 2 03/10/23 02:18 03/10/23 07:19 03/10/23 07:19 03/10/23 02:18 03/10/23 07:19 03/10/23 07:19 03/09/23 15:00 Oxygen Flow Rate (L/min) 2 Oxygen Delivery Method Room Air Weight: 44.452 kg Body Mass Index (BMI) 17.9 Intake & Output: Intake and Output for Last 24 Hours 03/08/23 03/09/23 03/10/23 23:59 23:59 23:59 Intake Total 455 / 455 700 / 700 Balance 455 / 455 700 / 700 Lab / Micro Data 03/10/23 05:19 03/10/23 05:19 Labs: Laboratory Results - last 24 hr 03/09/23 12:55: WBC 13.0 H, RBC 3.91 L, Hgb 12.0, Hct 38.0, MCV 97.2, MCH 30.7, MCHC 31.6 L, RDW Std Deviation 44.5 H, RDW Coeff of Jeff 12.5, Plt Count 473 H, MPV 9.7, Immature Gran % (Auto) 0.500, Neut % (Auto) 79.9 H, Lymph % (Auto) 12.5 L, [place] % (Auto) 5.9, Eos % (Auto) 0.6, Baso % (Auto) 0.6, Absolute Neuts (auto) 10.4 H, Absolute Lymphs (auto) 1.62, Nucleated RBC % 0, D-Dimer Quant (PE/DVT) 0.59 H*, Sodium 141, Potassium 3.7, Chloride 105, Carbon Dioxide 25.0, Anion Gap 11, BUN 6 L, Creatinine 0.62, Estim Creat Clear Calc 35.53, Est GFR (MDRD) Af Amer 120, Est GFR (MDRD) Non-Af 99, BUN/Creatinine Ratio 9.6 L, Glucose 101, Calcium 9.7, Troponin I High Sens 7, B-Natriuretic Peptide 265.7 H 03/10/23 05:19: WBC 8.5, RBC 3.30 L, Hgb 10.1 L, Hct 31.6 L, MCV 95.8, MCH 30.6, MCHC 32.0, RDW Std Deviation 43.1, RDW Coeff of Jeff 12.5, Plt Count 324, MPV 9.7, Immature Gran % (Auto) 0.500, Neut % (Auto) 87.9 H, Lymph % (Auto) 8.6 L, [place] % (Auto) 2.9, Eos % (Auto) 0.0, Baso % (Auto) 0.1, Absolute Neuts (auto) 7.5, Absolute Lymphs (auto) 0.73 L, Nucleated RBC % 0, Sodium 136, Potassium 3.8, Chloride 105, Carbon Dioxide 27.0, Anion Gap 4 L, BUN 8, Creatinine 0.47 L, Estim Creat Clear Calc 34.64, Est GFR (MDRD) Af Amer 167, Est GFR (MDRD) Non-Af 138, BUN/Creatinine Ratio 17.1, Glucose 135 H, Calcium 8.7 Micro: Microbiology 03/09/23 20:35 Urine, Random Legionella Antigen - Final 03/09/23 20:35 Urine, Random Streptococcus pneumoniae Antigen (M - Final 03/09/23 14:15 Nasal Secretion SARS-CoV-2 & FLU Antigen (Rapid) - Final Radiography Diagnostic Testing: Radiology Impression Chest X-Ray 03/09/23 13:50 IMPRESSION: Moderate opacities of the right upper and left midlung, concerning for pneumonia. Recommend follow-up to resolution. Electronically Signed: Lolis Dorado MD at 14:05 EDT , Physical Exam Narrative GENERAL: cooperative HEENT: Atraumatic; normocephalic EYES; Anicteric, Normal Conjunctiva NECK; supple, normal thyroid, RESPIRATORY: Diminished to auscultation CARDIOVASCULAR: Regular S1 S2, GI: soft, normoactive bowel sounds, : No Renal angle tenderness; EXTREMITIES: No edema, no clubbing, MUSCULOSKELETAL: no muscle wasting NEURO: Awake; no lateralizing signs. SKIN: No Rash PSYCH; Flat affect Assessment & Plan Assessment/Plan (1) Community acquired pneumonia: QUALIFIERS: Laterality: right Lung location: upper lobe of lung Qualified Code(s): J18.9 - Pneumonia, unspecified organism PLAN: Plan Patient is a 72-year-old lady who presented with shortness of breath and cough. Imaging studies demonstrated moderate opacities of the right And left midlung consistent with pneumonia admitted to regular nursing floor for further management 1. Community-acquired pneumonia - suspected streptococcal pneumonia patient started on Rocephin and azithromycin in addition to supplemental oxygen 2. Acute hypoxia ? Secondary to pneumonia management as discussed above 3. HTN ? Blood pressures are stable, resume home meds with hydralazine as needed for elevated blood pressure 3. Schizophrenia ? She did develop tardive dyskinesia on the Haldol so this was discontinued and she was started on Ingrezza well as a low-dose of Seroquel however this has not been adjusted so she is transitioning to a new psychiatrist here in [facility] 4. Depression ? Patient is on Prozac did continue 6. GERD ? Stable ? Continue with PPI 7. DVT prophylaxis ? SC heparin Time spent in the patient's overall evaluation,decision-making process, review of diagnostic data, adjustment of management, discussion with other providers, nursing nursing and ancillary staff involved in patient's care documentation, 35 Minutes Charges/Coding Visit Charges Inpatient E&M: 95708 Subs Hosp L2
[2023-03-10] MEDS: Aspirin 81 MG TAB.CHEW PO (08:38)
[2023-03-10] MEDS: Ceftriaxone 1 GM/50 ML BAG IV (10:15)
[2023-03-10] MEDS: Metoprolol(XL)Succ 25 MG Tablet PO ×2 (10:16→21:34)
[2023-03-10] MEDS: Furosemide 20 MG Tablet PO (10:16)
[2023-03-10] MEDS: Pantoprazole Sodium 20 MG Tablet PO (10:16)
[2023-03-10] MEDS: FLUoxetine 20 MG Capsule PO (10:17)
[2023-03-10] MEDS: Azithromycin 500 MG in Dextrose 5%-Water (250mL Bag) 250 ML 250 MG IV (10:56)
[2023-03-10] MEDS: Flu Vacc QS2023-24(65YR UP)/PF 240 MCG/0.7 ML Syringe IM (11:02)
--- NOTE | 2023-03-10 11:53 | CASEMGMT ---
YASMINE BEARD Assessment: Face to Face with pt for initial transition planning/care coordination assessment. RN CHIRAG introduced self and role at [facility], pt voices understanding and consents to assessment. Pt is A&O x4 and answers all questions appropriately at this time. Pt sitting up in chair on RA in no distress. Care providers, pharmacy, and demographics verified/updated. Admitting Dx: CAP PCP:Tesfaye DOWLING Specialists:Pt is trf'ing to Dr. Simms for psych; Ralph, cardio Preferred Pharmacy: [facility] Insurance: [facility], [facility] Prescription Benefit: yes LNOK: Rama Yu, dtr Living Arrangements: Pt lives alone in a single story home with 1 step to enter through the garage. Pt reports she is I in ADL's and denies concerns at home. Pt does own laundry and states she recently started cooking again. Pt dtr obtains her groceries. Transportation: Pt does not drive. Pt dtr transports her to medical appts. DME:[facility] but currently is not using HHC/SNF: Pt has had HHC in the past but cannot recall the name of the agency. Denies SNF stays. Pt states no concerns with going home at time of dc. Pt states no further concerns/needs. CM to follow. Advised pt to ask CM if any further question/concerns/needs arise, voices understanding. Pt Goal: Home Plan: Home
[2023-03-10] MEDS: QUEtiapine 25 MG Tablet 50 MG PO (21:34)
[2023-03-10] MEDS: Montelukast 10 MG Tablet PO (21:34)
[2023-03-11 02:43] VITALS: BP 118/64; PULSE 78; RESP 16; TEMP 36.7; O2SAT 97
[2023-03-11] MEDS: Heparin Injection (Vial) 5,000 UNIT/ML VIAL 5000 UNIT SC (05:50)
[2023-03-11 06:01] LABS: Absolute Lymphocyte Count 1.61 X10^3/uL (0.83-4.51); Basophil# 0.06 X10^3/uL; Basophil% 0.9 % (0-1); Eosinophils% 1.6 % (0-5); Hematocrit 32.7 % (37-47); Hemoglobin 10.1 g/dL (12.0-15.0); Lymphocyte # 1.61 X10^3/ul (0.83-4.51); Lymphocyte % 25.1 % (19-41); Mean Corp Hgb Conc 30.9 g/dL (32-36); Mean Corpuscular Hgb 30.5 pg (27.0-32.0); Mean Corpuscular Volume 98.8 fL (81-99); Monocyte# 0.59 X10^3/uL; Monocyte% 9.2 % (0-10); NRBC Flagged by Analyzer 0 % (0-5); Neutrophil # 4.03 X10^3/uL (2.7-7.7); Neutrophil % 62.7 % (47-70); Platelet Count 279 K/mm3 (150-450); RBC Distribution Width SD 46.8 fl (35.1-43.9); Red Blood Count 3.31 M/mm3 (4.2-5.4); White Blood Count 6.4 K/mm3 (4.4-11.0)
[2023-03-11] MEDS: Budesonide Respules 0.5 MG/2 ML AMPUL.NEB. INHALATION (06:55)
[2023-03-11] MEDS: Albuterol 2.5 MG/3 ML VIAL.NEB. INHALATION ×2 (06:55→12:52)
[2023-03-11 06:57] VITALS: PULSE 69; RESP 16; O2SAT 96
[2023-03-11 07:09] LABS: Anion Gap 7 (5-15); BUN 15 mg/dL (7-18); BUN/Creat Ratio 25.4 RATIO (10-20); Calcium,Total 8.8 mg/dL (8.5-10.1); Chloride 106 mmol/L (98-107); Creatinine, Serum 0.59 mg/dL (0.55-1.02); EST Glomerular Filtration Rate 106 mL/min (>60); Est Glom Filt Rate - Afr Amer 128 mL/min (>60); Estimated Creatinine Clearance 34.64 ml/min; Glucose 96 mg/dL (74-106); Magnesium 2.4 mg/dL (1.6-2.6); Phosphorus 2.9 mg/dL (2.5-4.9); Potassium 4.4 mmol/L (3.5-5.1); Sodium Level 139 mmol/L (136-145)
[2023-03-11 07:31] VITALS: BP 98/56; PULSE 66; RESP 16; TEMP 36.6; O2SAT 95
[2023-03-11 07:35] VITALS: BP 98/56; PULSE 66; RESP 16; TEMP 36.6; O2SAT 95
[2023-03-11] MEDS: Aspirin 81 MG TAB.CHEW PO (07:40)
--- NOTE | 2023-03-11 09:13 | DS.PCM_ITS ---
Providers Date of Admission: 03/09/23 Date of Discharge: 03/11/23 Primary Care Physician: NITESH Amin Reason For Visit: CAP Diagnosis Discharge Diagnosis (1) Community acquired pneumonia: Status: Acute Code(s): J18.9 - Pneumonia, unspecified organism Qualifiers: Laterality: right Lung location: upper lobe of lung Qualified Code(s): J18.9 - Pneumonia, unspecified organism Plan Patient is a 72-year-old lady who presented with shortness of breath and cough. Imaging studies demonstrated moderate opacities of the right And left midlung consistent with pneumonia admitted to regular nursing floor for further management 1. Community-acquired pneumonia - suspected streptococcal pneumonia patient started on Rocephin and azithromycin in addition to supplemental oxygen 2. Acute hypoxia ? Secondary to pneumonia management as discussed above 3. Hypertension ? Blood pressures are stable, resume home meds with hydralazine as needed for elevated blood pressure 4. Schizophrenia ? She did develop tardive dyskinesia on the Haldol so this was discontinued and she was started on Ingrezza well as a low-dose of Seroquel however this has not been adjusted so she is transitioning to a new psychiatrist here in [facility] 5. Depression ? Patient is on Prozac did continue 6. GERD ? Stable ? Continue with PPI 7. DVT prophylaxis ? SC heparin Time spent in the patient's overall evaluation,decision-making process, review of diagnostic data, adjustment of management, discussion with other providers, nursing nursing and ancillary staff involved in patient's care documentation, 35 Minutes Medications at Discharge Home Medications budesonide-formoterol HFA 160 mcg-4.5 mcg/actuation aerosol inhaler 2 puff inhalation BID Check with primary doctor 11/29/18 calcium carbonate-vitamin D3 600 mg-125 unit tablet 1 ea PO DAILY SUPPLEMENT 11/29/18 fluoxetine 20 mg capsule 20 mg PO DAILY MENTAL HEALTH 11/29/18 glucosamine HWh-L2-Hamctgmdp raji 1,500 mg-400 unit-100 mg tablet 1 ea PO DAILY SUPPLEMENT 11/29/18 ipratropium bromide 42 mcg (0.06 %) nasal spray 2 spray NASAL DAILY PRN PRN na jae congestion 11/29/18 levocetirizine 5 mg tablet 5 mg PO DAILY ALLERGIES 11/29/18 montelukast 10 mg tablet 10 mg PO QHS ALLERGIES 11/29/18 kuukmngw-qkhe-jhej 8 mg-folic 400 mcg-K 50 mcg-lutein 300 mcg tablet 1 ea PO DAILY SUPPLEMENT 11/29/18 omeprazole 20 mg capsule,delayed release 20 mg PO DAILY ACID REFLUX 11/29/18 temazepam 30 mg capsule 30 mg PO QHS PRN PRN Sleep 11/29/18 quetiapine 50 mg tablet (Seroquel) 50 mg PO QHS mental health 09/13/22 albuterol sulfate 90 mcg/actuation aerosol inhaler 2 puff inhalation Q4H PRN PRN sob 10/19/22 aspirin 81 mg capsule 81 mg PO DAILY heart health 10/19/22 potassium chloride 10 mEq tablet,extended release 20 meq (2 x 10 mEq) PO DAILY #60 tabs 10/20/22 furosemide 40 mg tablet 20 mg PO DAILY diuretic 11/06/22 metoprolol succinate 50 mg tablet,extended release 24 hr 25 mg PO BID 11/06/22 valbenazine 40 mg capsule (Ingrezza) 40 mg PO DAILY 03/09/23 cefdinir 300 mg capsule 300 mg PO BID #10 caps 03/11/23 Hospital Course Summary of Care Provided Minutes Spent on Discharge: 35 Physical Exam Narrative GENERAL: cooperative HEENT: Atraumatic; normocephalic EYES; Anicteric, Normal Conjunctiva NECK; supple, normal thyroid, RESPIRATORY: Diminished to auscultation CARDIOVASCULAR: Regular S1 S2, GI: soft, normoactive bowel sounds, : No Renal angle tenderness; EXTREMITIES: No edema, no clubbing, MUSCULOSKELETAL: no muscle wasting NEURO: Awake; no lateralizing signs. SKIN: No Rash PSYCH; Flat affect Medical Records Data Medical Nutrition Assessment Dietitian: Malnutrition Criteria Met Start: 03/10/23 15:38 Freq: Status: Active Protocol: Document 03/10/23 15:38 AG (Rec: 03/10/23 15:38 AG [id number]) Nutrition Malnutrition Evidence of Malnutrition Exists Yes Malnutrition (moderate): Chronic Evidenced By Suboptimal Energy Intake ( Moderate),Physical Changes ( Mild) Intake Problem Inadequate Oral Intake Etiology related to decreased appetite Signs/Symptoms as evidenced by estimated PO intake meeting ~75% of estimated energy needs Status Active Problem Clinical Problem Chronic Disease or Condition Related Malnutrition Etiology moderate, chronic malnutrition related to decreased appetite Signs/Symptoms as evidenced by estimated PO intake meeting ~75% of estimated energy needs, mild muscle wasting/fat loss per physical exam in orbital, clavicle, acromion areas, BMI 17.9 Status Active Problem Recommendation Dietitian Recommendations/Changes regular diet given evidence of malnutrition; will add 240mL ensure plus high protein daily w/ dinner for additional nutrition if consumed. Weight / BMI Weight Weight: 44.452 kg Body Mass Index (BMI) 17.9 ABG / Lab / Microbiology Data 03/11/23 05:13 03/11/23 05:13 Laboratory: Laboratory Results - last 24 hr 03/11/23 05:13: WBC 6.4, RBC 3.31 L, Hgb 10.1 L, Hct 32.7 L, MCV 98.8, MCH 30.5, MCHC 30.9 L, RDW Std Deviation 46.8 H, RDW Coeff of Jeff 13.0, Plt Count 279, MPV 10.0, Immature Gran % (Auto) 0.500, Neut % (Auto) 62.7, Lymph % (Auto) 25.1, [place] % (Auto) 9.2, Eos % (Auto) 1.6, Baso % (Auto) 0.9, Absolute Neuts (auto) 4.0, Absolute Lymphs (auto) 1.61, Nucleated RBC % 0, Sodium 139, Potassium 4.4, Chloride 106, Carbon Dioxide 26.0, Anion Gap 7, BUN 15, Creatinine 0.59, Estim Creat Clear Calc 34.64, Est GFR (MDRD) Af Amer 128, Est GFR (MDRD) Non-Af 106, BUN/Creatinine Ratio 25.4 H, Glucose 96, Calcium 8.8, Phosphorus 2.9, Magnesium 2.4 Microbiology: Microbiology 03/09/23 20:35 Urine, Random Legionella Antigen - Final 03/09/23 20:35 Urine, Random Streptococcus pneumoniae Antigen (M - Final 03/09/23 14:15 Nasal Secretion SARS-CoV-2 & FLU Antigen (Rapid) - Final D/C Instructions Discharge Diet: No restrictions Discharge Activity: Return to Normal Activity Call your doctor if you observe: Fever of 101 or Higher, Shortness of breath, Fainting spells and Chest pain Meaningful Use Info Meaningful Use Diagnoses (Choose all that apply): None applicable Discharge Plan Admission Admit Date/Time: 03/09/23 14:53 Attending Provider: Romero Chávez Primary Care Provider: Magdalena Archer Consulting Providers: Arley Ames Discharge Orders/Prescriptions Prescriptions: New cefdinir 300 mg capsule 300 mg PO BID Qty: 10 0RF Continued metoprolol succinate 50 mg tablet extended release 24 hr 25 mg PO BID Patient Comments: TAKE 1 TABLET BY MOUTH TWICE DAILY temazepam 30 MG capsule 30 mg PO QHS PRN PRN (Reason: Sleep) omeprazole 20 MG capsule 20 mg PO DAILY montelukast 10 MG tablet 10 mg PO QHS ipratropium bromide 1 SPRAY spray,non-aerosol 2 spray NASAL DAILY PRN PRN (Reason: nasal congestion) fluoxetine 20 MG capsule 20 mg PO DAILY calcium carbonate-vitamin D3 1 EACH tablet 1 ea PO DAILY Rx Instructions: budesonide-formoterol 1 INHALER inhaler 2 puff inhalation BID levocetirizine 5 MG tablet 5 mg PO DAILY uqhplaia-roz-kxpd-FA-vit K-lut 1 EACH tablet 1 ea PO DAILY znccqctdjkf-K4-Mlflpsaft serr 1 EACH tablet 1 ea PO DAILY quetiapine [Seroquel] 50 mg Tablet 50 mg PO QHS albuterol sulfate 90 mcg/actuation HFA aerosol inhaler 2 puff INHALATION Q4H PRN PRN (Reason: sob) aspirin 81 mg Capsule 81 mg PO DAILY potassium chloride 10 mEq tablet extended release 20 meq PO DAILY Qty: 60 0RF furosemide 40 mg tablet 20 mg PO DAILY Patient Comments: TAKE 1 TABLET BY MOUTH TWICE DAILY Ingrezza 40 mg capsule 40 mg PO DAILY Referrals / Follow Up: Magdalena Archer PA [Primary Care Provider] - Disposition Disposition (needs filled in before D/C Order can be placed): Home, Self Care Charges/Coding Visit Charges Inpatient E&M: 20557 Disch Hosp >30min
[2023-03-11] MEDS: Ceftriaxone 1 GM/50 ML BAG IV (09:14)
[2023-03-11 09:19] VITALS: PULSE 66
[2023-03-11] MEDS: Furosemide 20 MG Tablet PO (09:19)
[2023-03-11] MEDS: Metoprolol(XL)Succ 25 MG Tablet PO (09:19)
[2023-03-11] MEDS: FLUoxetine 20 MG Capsule PO (09:19)
[2023-03-11] MEDS: Pantoprazole Sodium 20 MG Tablet PO (09:19)
[2023-03-11] MEDS: Azithromycin 500 MG in Dextrose 5%-Water (250mL Bag) 250 ML 250 MG IV (10:15)
[2023-03-11 12:54] VITALS: PULSE 70; RESP 16
== END 2023-03-11 13:18 | disposition home or self-care (01) | DRG 195 ==
LOC: ED 15:02 → MS3 15:14
PROVIDERS: Admitting Provider Family Medicine; Emergency Provider Student in an Organized Health Care Education/Training Program; PCP Physician Assistant; Visit Provider Internal Medicine
DX: J13 Pneumonia due to Streptococcus pneumoniae (principal); F20.9 Schizophrenia, unspecified; J45.909 Unspecified asthma, uncomplicated; F32.A Depression, unspecified; I10 Essential (primary) hypertension; K21.9 Gastro-esophageal reflux disease without esophagitis; F41.1 Generalized anxiety disorder; R09.02 Hypoxemia; Z79.82 Long term (current) use of aspirin; Z79.899 Other long term (current) drug therapy; Z95.0 Presence of cardiac pacemaker; Z23 Encounter for immunization
CPT/HCPCS: 36415; 71045; 80048; 83735; 83880; 84100; 84484; 85025; 85379; 87428; 87449; 93005; 94640; 94668; 97162; 97165; 97535; 99252; 99285; J7050; 90662; G0463

== ENCOUNTER 2023-10-21 15:11 | Observation (INO) | payer MEDICARE, OTHER, SELFPAY ==
[2023-10-21] VITALS (10 sets, daily range): BP systolic 121–151; BP diastolic 57–85; PULSE 60–72; RESP 12–24; TEMP 36.2–37.1; O2SAT 98–100; BMI 22.2; BMI 20.4
--- NOTE | 2023-10-21 15:17 | CT_ITS ---
STUDY: CT BRAIN WITHOUT CONTRAST REASON FOR EXAM: Female, 73 years old. Neuro deficit, acute, stroke suspected Individualized dose optimization techniques were used for this CT. TECHNIQUE: Transaxial CT imaging of the brain was performed without administration of intravenous contrast material. COMPARISON: None FINDINGS: There are calcifications around the carotid artery. These are noted in the cavernous carotid arteries. Normal calvarium. Normal soft tissues. There is mild cerebral atrophy with widening of the extra-axial spaces and ventricular dilatation. There are areas of decreased attenuation within the white matter tracts of the supratentorial brain, consistent with microvascular disease changes. Normal basal ganglia and thalami. Normal brainstem. There is mild cerebellar atrophy. There is no intracranial hemorrhage. There are no findings of an acute ischemic infarction. Normal visualized paranasal sinuses. ASPECTS Score for Acute Strokes: 10 CT/STROKE Brain/Head without Cont IMPRESSION: There are no acute findings. Chronic involutional changes of the brain. N.B. : The above Results were Read Back by Aj Rodriguez MD to MD Ancelom, and understanding confirmed on 10/21/2023 15:32:08 (ET). Electronically Signed: Aj Rodriguez MD at 15:29 EDT ,
--- NOTE | 2023-10-21 15:17 | EKG12_ITS ---
Test Reason : STROKE TEAM Blood Pressure : / mmHG Vent. Rate : 060 BPM Atrial Rate : 060 BPM P-R Int : 150 ms QRS Dur : 144 ms QT Int : 462 ms P-R-T Axes : 098 -44 105 degrees QTc Int : 462 ms Normal sinus rhythm Left axis deviation Left bundle branch block Abnormal ECG Confirmed by KJ TIPTON, EVAN ([id number]), news copy editor AVERY KERNS ([id number]) on 10/25/2023 6:14:51 AM Referred By: Confirmed By:LOIVE UNDERWOOD MD
--- NOTE | 2023-10-21 15:18 | CT_ITS ---
EXAM: CT ANGIOGRAPHY HEAD AND NECK WITH INTRAVENOUS CONTRAST CLINICAL INDICATION: Neuro deficit, acute, stroke suspected TECHNIQUE: [place] [facility] [place]/head and neck CT angiography protocol performed with intravenous contrast. This CT exam was performed using one or more of the following dose reduction techniques: automated exposure control, adjustment of the mA and/or kV according to patient size, and/or use of iterative reconstruction technique. MIP reconstructed images were created and reviewed. CONTRAST: IV 100mL [id number]-370 RADIATION DOSE: CTDIvol = 18.02 mGy, DLP = 554.30 mGy-cm COMPARISON: No relevant prior studies available. FINDINGS: HEAD: RIGHT ANTERIOR CEREBRAL ARTERY: Unremarkable. No occlusion or significant stenosis. Anterior communicating artery is present. No aneurysm. RIGHT MIDDLE CEREBRAL ARTERY: Unremarkable. No occlusion or significant stenosis. No aneurysm. RIGHT POSTERIOR CEREBRAL ARTERY: Unremarkable. No occlusion or significant stenosis. No aneurysm. RIGHT INTRACRANIAL INTERNAL CAROTID ARTERY: Unremarkable. No significant stenosis. No dissection or occlusion. RIGHT INTRACRANIAL VERTEBRAL ARTERY: Unremarkable. No significant stenosis. No dissection or occlusion. LEFT ANTERIOR CEREBRAL ARTERY: Unremarkable. No occlusion or significant stenosis. No aneurysm. LEFT MIDDLE CEREBRAL ARTERY: Unremarkable. No occlusion or significant stenosis. No aneurysm. LEFT POSTERIOR CEREBRAL ARTERY: Unremarkable. No occlusion or significant stenosis. No aneurysm. LEFT INTRACRANIAL INTERNAL CAROTID ARTERY: Unremarkable. No significant stenosis. No dissection or occlusion. LEFT INTRACRANIAL VERTEBRAL ARTERY: Unremarkable. No significant stenosis. No dissection or occlusion. BASILAR ARTERY: Unremarkable. No occlusion or significant stenosis. No aneurysm. OTHER VASCULATURE: There is calcified plaque formation of the right cavernous carotid artery, with a mild stenosis (less than 50%). ALL ABOVE CRITERIA BY NASCET. There is calcified plaque formation of the left cavernous carotid artery, with a mild stenosis (less than 50%). ALL ABOVE CRITERIA BY NASCET. No vascular malformation. NECK: RIGHT COMMON CAROTID ARTERY: Unremarkable. No significant stenosis. No dissection or occlusion. RIGHT EXTRACRANIAL INTERNAL CAROTID ARTERY: There is mild atherosclerotic plaque formation of the origin of the right internal carotid artery with less than 50% cross sectional diameter stenosis. ALL ABOVE CRITERIA BY NASCET. No dissection or occlusion. RIGHT EXTERNAL CAROTID ARTERY: Unremarkable. No occlusion. RIGHT EXTRACRANIAL VERTEBRAL ARTERY: Unremarkable. No significant stenosis. No dissection or occlusion. LEFT COMMON CAROTID ARTERY: Unremarkable. No significant stenosis. No dissection or occlusion. LEFT EXTRACRANIAL INTERNAL CAROTID ARTERY: There is mild atherosclerotic plaque formation of the origin of the left internal carotid artery with less than 50% cross sectional diameter stenosis. ALL ABOVE CRITERIA BY NASCET. No dissection or occlusion. LEFT EXTERNAL CAROTID ARTERY: Unremarkable. No occlusion. LEFT EXTRACRANIAL VERTEBRAL ARTERY: Unremarkable. No significant stenosis. No dissection or occlusion. BRACHIOCEPHALIC AND SUBCLAVIAN ARTERIES: Unremarkable as visualized. No occlusion or significant stenosis. LUNG APICES: Unremarkable as visualized. HEAD and NECK: BONES/JOINTS: There are degenerative findings of the cervical spine. No discrete lytic or blastic abnormalities. SOFT TISSUES: Unremarkable. OTHER FINDINGS: Post-processing of the angiographic images was performed, with axial imaging and 3D reconstruction. MIPS images were obtained. CAROTID STENOSIS REFERENCE USING NASCET CRITERIA: % ICA stenosis = (1 - narrowest ICA diameter/diameter of distal cervical ICA) x 100. Mild - <50% stenosis. Moderate - 50-69% stenosis. Severe - 70-94% stenosis. Near occlusion - 95-99% stenosis. Occluded - 100% stenosis. CT/STROKE CTA Head AND Neck W/Con IMPRESSION: 1. There is mild atherosclerotic plaque formation of the origin of the right internal carotid artery with less than 50% cross sectional diameter stenosis. ALL ABOVE CRITERIA BY NASCET. 2. There is mild atherosclerotic plaque formation of the origin of the left internal carotid artery with less than 50% cross sectional diameter stenosis. ALL ABOVE CRITERIA BY NASCET. 3. There is calcified plaque formation of the right cavernous carotid artery, with a mild stenosis (less than 50%). ALL ABOVE CRITERIA BY NASCET. 4. There is calcified plaque formation of the left cavernous carotid artery, with a mild stenosis (less than 50%). ALL ABOVE CRITERIA BY NASCET. N.B. : The above Results were Read Back by Aj Rodriguez MD to Ed Caruso DO, and understanding confirmed on 10/21/2023 15:55:44 (ET). Electronically Signed: Aj Rodriguez MD at 15:47 EDT ,
--- NOTE | 2023-10-21 15:19 | EDS_ITS ---
HPI History of Present Illness Chief Complaint: Neuro S/Sx Informant: patient and family Narrative Narrative: Presenting with transient slurred speech witnessed by family. Patient has history of schizoaffective disorder, asthma and a pacemaker for complete heart block history a year ago per daughter, patient's grandson talked her about 1 PM she was normal. Patient wanted to talk to the daughter she called at 130 she noted her speech was off and started slurring at the end of conversation. She had history of schizophrenia with tar dive dyskinesia her speech is currently at baseline however it was a lot worse. She states her went there and witnessed the slurred speech patient arrived 15 minutes after initial onset and it was completed back to normal. She had unsteady gait per family which also resolved. She takes baby aspirin's. No other anticoagulants. Patient denies any headache. Denies history of strokes. Denies diabetes. Prior similar symptoms: No [facility] Medical History Chronic GERD Hx of viral pneumonia Pleural effusion Hypokalemia Pneumonia Generalized anxiety disorder Schizophrenia Depression Osteoarthritis Asthma Home Medications ?Medication ?Instructions ?Recorded ?Last Taken ?Type budesonide-formoterol HFA 160 2 puff inhalation BID Check with 11/29/18 10/21/23 History mcg-4.5 mcg/actuation aerosol primary doctor inhaler ipratropium bromide 42 mcg (0.06 2 spray NASAL DAILY PRN nasal 11/29/18 08/18/19 History %) nasal spray congestion levocetirizine 5 mg tablet 5 mg PO DAILY ALLERGIES 11/29/18 10/21/23 History montelukast 10 mg tablet 10 mg PO QHS ALLERGIES 11/29/18 10/20/23 History xhxxtvys-nikt-vggm 8 mg-folic 400 1 ea PO DAILY SUPPLEMENT 11/29/18 10/21/23 History mcg-K 50 mcg-lutein 300 mcg tablet omeprazole 20 mg capsule,delayed 20 mg PO DAILY ACID REFLUX 11/29/18 10/21/23 History release albuterol sulfate 90 mcg/actuation 2 puff inhalation Q4H PRN sob 10/19/22 10/18/23 History aerosol inhaler aspirin 81 mg capsule 81 mg PO DAILY heart health 10/19/22 10/21/23 History furosemide 40 mg tablet 20 mg PO DAILY diuretic 11/06/22 10/21/23 History metoprolol succinate 50 mg 25 mg PO BID 11/06/22 10/21/23 History tablet,extended release 24 hr fluoxetine 20 mg capsule 20 mg PO DAILY depression #14 caps 07/23/23 10/21/23 Rx valbenazine 40 mg capsule See Rx Instructions .Route 09/04/23 10/21/23 Rx (Ingrezza) .COMPLEX #30 caps temazepam 30 mg capsule 30 mg PO QHS PRN Sleep 30 days #30 09/05/23 10/20/23 Rx caps calcium carbonate 600 mg-vitamin 1 tab PO DAILY 10/21/23 10/21/23 History D3 5 mcg (200 unit) tablet (Calcium 600 + D(3)) carboxymethylcellulose sodium 0.25 1 drp EACH EYE DAILY 10/21/23 10/21/23 History % eye drops (Lubricant Eye Drops) cholecalciferol (vitamin D3) 50 2,000 unit PO DAILY 10/21/23 10/21/23 History mcg (2,000 unit) tablet (D3 DOTS) glucosamine sulf dipot 1 cap PO DAILY 10/21/23 10/21/23 History chlr,msm,chond 550 mg-C 30 mg-jerrica 1 mg capsule (Glucosamine Chondroitin) potassium chloride 10 mEq 10 meq PO BID 10/21/23 10/21/23 History tablet,extended release quetiapine 50 mg tablet 50 mg PO DAILY 10/21/23 10/21/23 History quetiapine 50 mg tablet 100 mg PO QHS 10/21/23 10/20/23 History Allergy/AdvReac Type Severity Reaction Status Date / Time grass pollen Allergy Itching Verified 10/21/23 15:34 Family History Father CAD (coronary artery disease) Hypertension Sister Hypertension Surgical History S/P placement of cardiac pacemaker S/P unilateral salpingo-oophorectomy S/P appendectomy S/P nasal septoplasty S/P tubal ligation Social History (Updated 10/21/23 @ 16:[address] Allison Ag DO) household members: none housing: house Smoking Status: Never smoker alcohol intake: current alcohol intake frequency: holidays/special occasions only substance use type: does not use ROS ROS ED Constitutional Constitutional ED: Denies chills, fever(s) or sweats Eyes Eyes: Denies change in vision ENT ENT ED: Denies dysphagia or sore throat Cardiovascular Cardiovascular: Denies chest pain, leg edema, palpitations or racing heartbeat Respiratory/Chest Respiratory/Chest: Denies cough, dyspnea or dyspnea on exertion Gastrointestinal Gastrointestinal: Denies abdominal pain, diarrhea, nausea or vomiting Genitourinary Genitourinary ED: Denies dysuria, hematuria or urinary frequency Musculoskeletal Musculoskeletal: Denies back pain, extremity pain or neck pain Integumentary Denies rash or wounds Neurologic Neurologic: Reports other Details: Slurring of speech, unsteady gait ; Denies headache(s), paresthesias or weakness EXAM Physical Exam Const Vital Signs: 10/21/23 15:12 10/21/23 15:26 10/21/23 15:26 Temperature 98.7 F Temperature Source Temporal Pulse Rate 62 Respiratory Rate 16 Blood Pressure 133/66 H 133/66 H Blood Pressure Mean 88 88 Pulse Ox 98 98 Oxygen Delivery Method Room Air Room Air 10/21/23 15:41 10/21/23 15:56 10/21/23 16:11 Temperature Temperature Source Pulse Rate 72 64 64 Respiratory Rate 23 H 17 24 H Blood Pressure 121/70 H 121/70 H 121/70 H Blood Pressure Mean 87 87 87 Pulse Ox 98 99 99 Oxygen Delivery Method Room Air Room Air Room Air 10/21/23 16:11 Temperature Temperature Source Pulse Rate 60 Respiratory Rate 12 Blood Pressure 141/74 H Blood Pressure Mean 96 Pulse Ox 99 Oxygen Delivery Method Room Air Positive well nourished and well developed General Appearance ED: well developed and NAD HEENT Reports moist mucous membranes normocephalic and atraumatic Eyes EOMs intact bilaterally and conjunctivae normal General Eye ED: Yes normal appearance of both eyes Neck no lymphadenopathy and supple General: Negative for tenderness Chest Wall Chest: Negative for tenderness Resp normal respiratory effort and normal air movement Effort and Inspection: symmetric chest movement; Negative for respiratory distress Cardio regular rate, regular rhythm and no murmurs Peripheral Pulses: pulses 2+ throughout GI normal to inspection, nondistended, normoactive bowel sounds and non-tender Palpation: Negative for guarding or rebound tenderness present Back/Spine no CVA tenderness and no thoracic nor lumbar tenderness Extremity normal to inspection General Extremety ED: Negative for edema or tenderness General Extremity: Negative for edema Neuro oriented x3, CN's II-XII intact bilaterally and no sensory deficits noted Neuro Narrative: Patient's speech was slow, however family confirms this is her baseline. Normal upper and lower cerebellar testing. Sensorium / Orientation: awake and alert Skin no rashes or lesions noted and no wounds NIHSS NIHSS Initial: 1a Level of Consciousness: 0 1b LOC Questions (Score 2 if aphasic/stupor): 0 1c LOC Commands (Only score 1st attempt): 0 2 Best Gaze (If aphasic, use reflexive mvmts.): 0 3 Visual: 0 4 Facial Palsy: 0 5 Motor Arm Right (UN = amputation/fusion): 0 5 Motor Arm Left: 0 6 Motor Leg Right: 0 6 Motor Leg Left: 0 7 Limb ataxia (Only + if out of proportion): 0 8 Sensory (Aphasia/stupor=0 or 1, coma=2): 0 9 Best Language: 0 10 Dysarthria (mute, coma=2, intubated=UN): 0 11 Extinction and Inattention (only scored if +): 0 Total Score: 0 MDM MDM MDM Narrative Medical decision making narrative: Interventions / MDM: Differential diagnosis: TIA Diagnosis considered but do not suspect: N/A My EKG interpretation: Sinus rate of 60, no ST or T wave changes. Left bundle noted however she has a pacemaker. Imaging independently reviewed and interpreted by myself: CT brain: No acute process. CT angiogram head and neck: No acute process also read by radiology. 1 view chest x-ray: No acute process. External documents reviewed: N/A Test considered but not ordered:N/A ED course: Patient symptoms resolved NIH 0 however with timeframe onset less than 4.5 hours, protocol stroke was initiated with CT CT angiogram. Patient eval by telestroke neurologist, with her pacemaker recommended repeat CT 24 hours with typical stroke workup. EKG sinus rhythm. Labs are stable. CT scans were negative. Chest x-ray negative. 1615: I spoke with hospitalist Dr. Allison Ag for admission to PCU. Re-evaluation: stable Disposition discussed with patient/family/significant other: Patient and family Case discussed with consulting clinician: Telestroke, hospitalist This note was generated with [employer] software. It may contain incorrect words, spelling, and punctuation that were not noted in checking the note before signing. Lab Data Attestation: I reviewed the patient's lab results. Labs: Laboratory Results - last 24 hr 10/21/23 10/21/23 15:23 15:25 WBC 5.3 RBC 4.00 L Hgb 12.3 Hct 38.6 MCV 96.5 MCH 30.8 MCHC 31.9 L RDW Std Deviation 45.7 H RDW Coeff of Jeff 12.8 Plt Count 222 MPV 10.3 Immature Gran % (Auto) 0.400 Neut % (Auto) 63.8 Lymph % (Auto) 25.8 [place] % (Auto) 7.3 Eos % (Auto) 2.1 Baso % (Auto) 0.6 Absolute Neuts (auto) 3.4 Absolute Lymphs (auto) 1.37 Nucleated RBC % 0 PT 13.1 INR 1.0 APTT 27.2 Sodium 140 Potassium 3.6 Chloride 106 Carbon Dioxide 29.0 Anion Gap 5 BUN 20 H Creatinine 0.78 Estim Creat Clear Calc 48.06 Est GFR (MDRD) Af Amer 93 Est GFR (MDRD) Non-Af 77 BUN/Creatinine Ratio 25.8 H Glucose 79 Hemoglobin A1c 5.0 Calcium 9.7 Troponin I High Sens 6 POC Glucose 99 Radiography Diagnostic Testing: Clinical Impression(s) from Imaging Studies Head/Neck CTA 10/21/23 15:18 IMPRESSION: 1. There is mild atherosclerotic plaque formation of the origin of the right internal carotid artery with less than 50% cross sectional diameter stenosis. ALL ABOVE CRITERIA BY NASCET. 2. There is mild atherosclerotic plaque formation of the origin of the left internal carotid artery with less than 50% cross sectional diameter stenosis. ALL ABOVE CRITERIA BY NASCET. 3. There is calcified plaque formation of the right cavernous carotid artery, with a mild stenosis (less than 50%). ALL ABOVE CRITERIA BY NASCET. 4. There is calcified plaque formation of the left cavernous carotid artery, with a mild stenosis (less than 50%). ALL ABOVE CRITERIA BY NASCET. Electronically Signed: Aj Rodriguez MD at 15:47 EDT , ADDENDUM: 10/21/23 1602 IMPRESSION: 1. There is mild atherosclerotic plaque formation of the origin of the right internal carotid artery with less than 50% cross sectional diameter stenosis. ALL ABOVE CRITERIA BY NASCET. 2. There is mild atherosclerotic plaque formation of the origin of the left internal carotid artery with less than 50% cross sectional diameter stenosis. ALL ABOVE CRITERIA BY NASCET. 3. There is calcified plaque formation of the right cavernous carotid artery, with a mild stenosis (less than 50%). ALL ABOVE CRITERIA BY NASCET. 4. There is calcified plaque formation of the left cavernous carotid artery, with a mild stenosis (less than 50%). ALL ABOVE CRITERIA BY NASCET. N.B. : The above Results were Read Back by Aj Rodriguez MD to Ed Caruso DO, and understanding confirmed on 10/21/2023 15:55:44 (ET). Electronically Signed: Aj Rodriguez MD at 15:47 EDT , Chest X-Ray 10/21/23 15:40 IMPRESSION: There are no acute findings. Electronically Signed: Aj Rodriguez MD at 16:04 EDT , Critical Care Time Critical Care Time: Yes Critical care time (excluding procedures): 30-74 minutes, Discussing w/Patient &/or Family/Under Baster, Discussing w/Consultants, Arranging Admission or Transfer, Performing Direct Patient Care at Bedside and - (20 minutes) Discharge Plan Dx/Rx/DC Orders Clinical Impression: Brain TIA, Schizophrenia, Slurred speech, Pacemaker Disposition Disposition: Acute Care [facility] Discharge Date/Time: 10/21/23 16:42
[2023-10-21 15:35] LABS: Absolute Lymphocyte Count 1.37 X10^3/uL (0.83-4.51); Absolute Neutrophil Count 3.4 X10^3/uL (2.0-7.7); Basophil# 0.03 X10^3/uL; Basophil% 0.6 % (0-1); Eosinophil# 0.11 X10^3/uL; Eosinophils% 2.1 % (0-5); Hematocrit 38.6 % (37-47); Hemoglobin 12.3 g/dL (12.0-15.0); Lymphocyte # 1.37 X10^3/ul (0.83-4.51); Lymphocyte % 25.8 % (19-41); Mean Corp Hgb Conc 31.9 g/dL (32-36); Mean Corpuscular Hgb 30.8 pg (27.0-32.0); Mean Corpuscular Volume 96.5 fL (81-99); Mean Platelet Vol. 10.3 fl (6.2-12.0); Monocyte# 0.39 X10^3/uL; Monocyte% 7.3 % (0-10); NRBC Flagged by Analyzer 0 % (0-5); Neutrophil % 63.8 % (47-70); Platelet Count 222 K/mm3 (150-450); RBC Distribution Width CV 12.8 % (11.6-14.6); RBC Distribution Width SD 45.7 fl (35.1-43.9); White Blood Count 5.3 K/mm3 (4.4-11.0)
--- NOTE | 2023-10-21 15:40 | RAD_ITS ---
STUDY: XR Chest 1 View 10/21/2023 3:39 PM REASON FOR EXAM: Female, 73 years old. Neuro deficit, acute, stroke suspected COMPARISON: 03.09.23 TECHNIQUE: XR Chest 1 View FINDINGS: There is no demonstrated pleural abnormality. There is a left sided pacemaker batterypack. The lung bowling are hyperexpanded. Normal heart size. Normal mediastinum. Normal snehal. Prominent appearing increased interstitial lung markings. Normal visualized pulmonary arteries. There is atherosclerotic calcification of the aortic arch with tortuosity. There are diffuse degenerative changes of the visualized thoracic spine. There is degenerative osteoarthritis of the bilateral shoulders. There are no acute findings of the upper abdomen. RAD/Chest 1 View IMPRESSION: There are no acute findings. Electronically Signed: Aj Rodriguez MD at 16:04 EDT ,
[2023-10-21 15:43] LABS: Bedside Glucose 99 mg/dL (74-106)
[2023-10-21 15:44] LABS: Prothrombin Time (Protime)PT. 13.1 SECONDS (11.7-14.9)
[2023-10-21 15:45] LABS: Partial Thromboplast Time 27.2 Seconds (24.1-36.2)
[2023-10-21 16:01] LABS: Anion Gap 5 (5-15); BUN 20 mg/dL (7-18); BUN/Creat Ratio 25.8 RATIO (10-20); Calcium,Total 9.7 mg/dL (8.5-10.1); Chloride 106 mmol/L (98-107); Creatinine, Serum 0.78 mg/dL (0.55-1.02); EST Glomerular Filtration Rate 77 mL/min (>60); Est Glom Filt Rate - Afr Amer 93 mL/min (>60); Estimated Creatinine Clearance 48.06 ml/min; Glucose 79 mg/dL (74-106); Potassium 3.6 mmol/L (3.5-5.1); Sodium Level 140 mmol/L (136-145); Troponin-I HS 6 pg/mL (3.0-54.0)
--- NOTE | 2023-10-21 16:21 | ECHOD_ITS ---
Reason For Study: TIA/CVA Procedure This was a 2D Doppler, Color Flow transthoracic echocardiogram. The study was technically difficult. Exam performed portable in patient room. Left Ventricle Normal LV size. The estimated ejection fraction is 55 %. No evidence for diastolic dysfunction. No regional wall motion abnormalities noted. Right Ventricle Normal RV size. Normal systolic function. Atria The left and right atria are normal. No doppler evidence for ASD. Bubble contrast study negative for right to left interatrial shunt. Mitral Valve There is no mitral valve stenosis. Trivial mitral valve insufficiency. Tricuspid Valve There is no tricuspid stenosis. Trivial tricuspid valve insufficiency. Pulmonary artery systolic pressure is 25 mmHg. Aortic Valve Trisinus/trileaflet aortic valve. There is no aortic stenosis. Trivial aortic valve insufficiency. Pulmonic Valve There is no pulmonic valvular stenosis. No pulmonic valve insufficiency. Great Vessels Normal aortic root. Pericardium/Pleural No pericardial effusion. Medication Performed a rapid injection of agitated mix of 9 cc saline and 1cc air to assess for atrial septal defect. MMode/2D Measurements & Calculations LVIDd: 4.5 cm IVSd: 1.0 cm LVOT diam: 1.9 cm LVIDs: 3.1 cm LVPWd: 0.84 cm RVDd: 2.8 cm FS: 30.9 % LVOT area: 2.7 cm2 Ao root diam: 2.8 cm LAV(MOD-bp): 19.1 ml LVAd ap4: 17.1 cm2 LAV(MOD-bp) Indexed: 12.4 ml/m2 LVLd ap4: 6.3 cm LAV(MOD-sp2): 26.4 ml EDV(MOD-sp4): 37.3 ml LAV(MOD-sp4): 11.9 ml EDV(sp4-el): 39.2 ml LVAs ap4: 10.4 cm2 LVLs ap4: 5.3 cm ESV(MOD-sp4): 16.9 ml ESV(sp4-el): 17.3 ml EF(MOD-sp4): 54.7 % EF(sp4-el): 55.9 % LVAd ap2: 18.2 cm2 SV(MOD-sp4): 20.4 ml SV(MOD-sp2): 26.3 ml LVLd ap2: 6.3 cm EDV(MOD-sp2): 42.9 ml EDV(sp2-el): 44.4 ml LVAs ap2: 10.4 cm2 LVLs ap2: 5.3 cm ESV(MOD-sp2): 16.6 ml ESV(sp2-el): 17.2 ml EF(MOD-sp2): 61.4 % SV(sp4-el): 21.9 ml LA dimension(2D): 3.3 cm LA A4 area: 7.5 cm2 RA A4 area: 8.1 cm2 TAPSE: 1.9 cm Time Measurements MV dec time: 0.16 sec Doppler Measurements & Calculations MV E max anastacio: 70.7 cm/sec Lat Peak E' Anastacio: 7.8 cm/sec Med Peak E' Anastacio: 6.0 cm/sec MV A max anastacio: 59.9 cm/sec E/E' lat: 9.0 E/E' med: 11.7 MV E/A: 1.2 Ao V2 max: 123.6 cm/sec LV V1 max: 89.5 cm/sec MV dec slope: 441.0 cm/sec2 Ao max P.1 mmHg LV V1 max P.2 mmHg Ao V2 mean: 77.6 cm/sec LV V1 mean P.5 mmHg Ao mean P.8 mmHg LV V1 mean: 56.2 cm/sec Ao V2 VTI: 28.0 cm LV V1 VTI: 19.3 cm AV (velocity ratio): 0.69 TOMY(I,D): 1.8 cm2 TOMY(V,D): 2.0 cm2 SV(LVOT): 51.9 ml PA V2 max: 91.6 cm/sec TR max anastacio: 218.6 cm/sec PA max PG (full): 0.81 mmHg TR max P.1 mmHg ECHO/Echo Complete Interpretation Summary The estimated ejection fraction is 55 %. No evidence for diastolic dysfunction. Trivial mitral valve insufficiency. Trivial aortic valve insufficiency. Ordering Physician: Allison Ag Performed By: Jayna Olvera RDCS
--- NOTE | 2023-10-21 16:23 | HP.PCM.HOS_ITS ---
HPI - General General Date of Admission: 10/21/23 Date of Service: 10/21/23 Chief Complaint: Slurred speech HPI Narrative MICA YORK, is a 73 F who presented to the emergency department at [facility] on 10/21/2023 with a chief complaint of slurred speech. This was witnessed by family. Per discussion with her daughter, the patient's grandson talk to the patient at about 1 PM and she had no abnormalities on her speech. Patient wanted to talk to her daughter so she called her daughter at 130 and noted that her speech was off and she was slurring at the end of the conversation. She also was stating that she had trouble sitting up however the patient indicated she just wanted to lie down and indicated she was tired so she may have had some expressive issues as well. She does have a history of schizophrenia with tardive dyskinesia and her speech at baseline is a little bit slowed and deliberate however it was a lot worse than it is at baseline per family. Symptoms lasted maybe 15 to 30 minutes since initial onset and completely resolved. She also had some unsteady gait at the time which resolved as well. She does live alone and manages independently at baseline. She takes a baby aspirin typically but no other anticoagulation. She is never had any previous symptoms. She does have a pacemaker for history of complete heart block. Vital signs on presentation showed a temperature of 98.7, heart rate 62, respiratory rate 16, blood pressure was 88, oxygen saturation was 98% on room air. Her CBC is unremarkable. Her coags were normal. Chemistry panel was unremarkable. Glucose was 79. Troponin was 6. CT of her brain was unremarkable. There was mild atherosclerotic plaque of less than 50% at bilateral internal carotid arteries as well as bilateral cavernous carotid arteries and normal vertebrals. Chest x-ray showed no acute findings and EKG showed paced rhythm. NIH was 0. She was seen by the stroke neurologist in the emergency department and they recommended admission with a repeat CAT scan at 24 hours as well as typical stroke workup. [facility] Medical History Chronic GERD Hx of viral pneumonia Pleural effusion Hypokalemia Pneumonia Generalized anxiety disorder Schizophrenia Depression Osteoarthritis Asthma Home Medications ?Medication ?Instructions ?Recorded ?Last Taken ?Type budesonide-formoterol HFA 160 2 puff inhalation BID Check with 11/29/18 10/21/23 History mcg-4.5 mcg/actuation aerosol primary doctor inhaler ipratropium bromide 42 mcg (0.06 2 spray NASAL DAILY PRN nasal 11/29/18 08/18/19 History %) nasal spray congestion levocetirizine 5 mg tablet 5 mg PO DAILY ALLERGIES 11/29/18 10/21/23 History montelukast 10 mg tablet 10 mg PO QHS ALLERGIES 11/29/18 10/20/23 History zwkiffzm-wwep-nocq 8 mg-folic 400 1 ea PO DAILY SUPPLEMENT 11/29/18 10/21/23 History mcg-K 50 mcg-lutein 300 mcg tablet omeprazole 20 mg capsule,delayed 20 mg PO DAILY ACID REFLUX 11/29/18 10/21/23 History release albuterol sulfate 90 mcg/actuation 2 puff inhalation Q4H PRN sob 10/19/22 10/18/23 History aerosol inhaler aspirin 81 mg capsule 81 mg PO DAILY heart health 10/19/22 10/21/23 History furosemide 40 mg tablet 20 mg PO DAILY diuretic 11/06/22 10/21/23 History metoprolol succinate 50 mg 25 mg PO BID 11/06/22 10/21/23 History tablet,extended release 24 hr fluoxetine 20 mg capsule 20 mg PO DAILY depression #14 caps 07/23/23 10/21/23 Rx valbenazine 40 mg capsule See Rx Instructions .Route 09/04/23 10/21/23 Rx (Ingrezza) .COMPLEX #30 caps temazepam 30 mg capsule 30 mg PO QHS PRN Sleep 30 days #30 09/05/23 10/20/23 Rx caps calcium carbonate 600 mg-vitamin 1 tab PO DAILY 10/21/23 10/21/23 History D3 5 mcg (200 unit) tablet (Calcium 600 + D(3)) carboxymethylcellulose sodium 0.25 1 drp EACH EYE DAILY 10/21/23 10/21/23 History % eye drops (Lubricant Eye Drops) cholecalciferol (vitamin D3) 50 2,000 unit PO DAILY 10/21/23 10/21/23 History mcg (2,000 unit) tablet (D3 DOTS) glucosamine sulf dipot 1 cap PO DAILY 10/21/23 10/21/23 History chlr,msm,chond 550 mg-C 30 mg-jerrica 1 mg capsule (Glucosamine Chondroitin) potassium chloride 10 mEq 10 meq PO BID 10/21/23 10/21/23 History tablet,extended release quetiapine 50 mg tablet 50 mg PO DAILY 10/21/23 10/21/23 History quetiapine 50 mg tablet 100 mg PO QHS 10/21/23 10/20/23 History Allergy/AdvReac Type Severity Reaction Status Date / Time grass pollen Allergy Itching Verified 10/21/23 15:34 Family History Father CAD (coronary artery disease) Hypertension Sister Hypertension Surgical History S/P placement of cardiac pacemaker S/P unilateral salpingo-oophorectomy S/P appendectomy S/P nasal septoplasty S/P tubal ligation Social History (Updated 10/21/23 @ 16:[address] Allison Ag DO) household members: none housing: house Smoking Status: Never smoker alcohol intake: current alcohol intake frequency: holidays/special occasions only substance use type: does not use ROS Constitutional Constitutional: Denies anorexia, change in weight, chills, fatigue, fever(s), malaise, night sweats, weakness or other Eyes Eyes: Denies blurry vision, change in eye color, change in vision, discharge from eye(s), double vision, erythema, eye pain, loss of vision or other ENT HEENT: Denies abnormal hearing, dysphagia, ear pain, epistaxis, headache(s), hearing loss, nasal congestion, nasal discharge, post nasal drip, sinus pressure, sore throat or other Cardiovascular Cardiovascular: Denies chest pain, claudication, dyspnea on exertion, edema, lightheadedness, orthopnea, palpitations, paroxysmal nocturnal dyspnea, rapid heart rate, syncope or other Respiratory/Chest Respiratory/Chest: Denies cough, dyspnea, excessive phlegm production, hemoptysis, productive cough, shortness of breath at rest, shortness of breath with exertion, wheezing or other Gastrointestinal Gastrointestinal: Denies abdominal pain, coffee ground emesis, constipation, diarrhea, dyspepsia, hematemesis, hematochezia, loose stools, melena, nausea, vomiting or other Genitourinary Genitourinary: Denies burning urination, difficulty urinating, dysuria, hematuria, nocturia, urinary frequency, urinary hesitancy, urinary incontinence, urinary urgency or other Musculoskeletal Musculoskeletal: Denies arthralgias, back pain, joint pain, joint stiffness, joint swelling, myalgias, neck pain or other Neurologic Neurologic: Reports abnormal gait and abnormal speech; Denies confusion, disequilibrium, dizziness, focal weakness, headache(s), numbness, paresthesias, seizure-like activity, seizures, syncope, tingling, tremor(s) or other Psychiatric Psychiatric: Reports other Details: History of schizophrenia ; Denies anxiety, depression, homicidal ideation or suicidal ideation Endocrine Endocrinology: Denies change in body appearance, cold intolerance, excessive sweating, heat intolerance, polydipsia, polyuria or other Hematologic/Lymphatic Hematologic/Lymphatic: Denies anemia, easy bleeding, easy bruising, lymphadenopathy or other Allergic/Immunologic Allergic/Immunologic: Denies rhinitis, hives, eczemia, asthma or other Vital Signs Vital Signs Vital Signs: 10/21/23 15:12 10/21/23 15:26 10/21/23 15:26 Temperature 98.7 F Temperature Source Temporal Pulse Rate 62 Respiratory Rate 16 Blood Pressure 133/66 H 133/66 H Blood Pressure Mean 88 88 Pulse Ox 98 98 Oxygen Delivery Method Room Air Room Air 10/21/23 15:41 10/21/23 15:56 10/21/23 16:11 Temperature Temperature Source Pulse Rate 72 64 64 Respiratory Rate 23 H 17 24 H Blood Pressure 121/70 H 121/70 H 121/70 H Blood Pressure Mean 87 87 87 Pulse Ox 98 99 99 Oxygen Delivery Method Room Air Room Air Room Air 10/21/23 16:14 10/21/23 16:22 Temperature 98.1 F Temperature Source Pulse Rate 60 60 Respiratory Rate 12 18 Blood Pressure 141/74 H 141/74 H Blood Pressure Mean 96 96 Pulse Ox 99 100 Oxygen Delivery Method Room Air Weight Weight: 55.2 kg Body Mass Index (BMI) 22.2 Physical Exam Const alert, oriented x3, no apparent distress, average body habitus and well nourished Constitutional Narrative: Elderly, white female, sitting up in bed, family at bedside, patient appears comfortable, nontoxic General Appearance: cooperative HEENT normocephalic, head/scalp atraumatic, hearing grossly normal bilaterally and moist oral mucous membranes HEENT Narrative: Mallampati 2, no thrush Eyes PERRL, EOMs intact bilaterally and conjunctivae normal Neck no lymphadenopathy and supple Neck Narrative: Trachea midline, no thyroid enlargement Resp normal respiratory effort, no retractions, no use of accessory muscles and clear to auscultation bilaterally Auscultation: Negative for rales, rhonchi or wheezes Cardio regular rate, regular rhythm, S1 normal heart sound, S2 normal heart sound, no murmurs, no rub, no gallops and no clicks GI normal to inspection, nondistended, normoactive bowel sounds, soft to palpation and non-tender Extremity no clubbing, cyanosis or edema Extremity Narrative: Pedal and radial pulses are 2+ Neuro oriented x3, CN's II-XII intact bilaterally, moves all extremities and no focal motor deficits Speech: speech normal Psych Psych Narrative: Affect is flat but eye contact is good and patient interacts appropriately Results Lab / Micro Data 10/21/23 15:25 10/21/23 15:25 Labs: Laboratory Results - last 24 hr 10/21/23 15:23: POC Glucose 99 10/21/23 15:25: WBC 5.3, RBC 4.00 L, Hgb 12.3, Hct 38.6, MCV 96.5, MCH 30.8, M CHC 31.9 L, RDW Std Deviation 45.7 H, RDW Coeff of Jeff 12.8, Plt Count 222, MPV 10.3, Immature Gran % (Auto) 0.400, Neut % (Auto) 63.8, Lymph % (Auto) 25.8, [place] % (Auto) 7.3, Eos % (Auto) 2.1, Baso % (Auto) 0.6, Absolute Neuts (auto) 3.4, Absolute Lymphs (auto) 1.37, Nucleated RBC % 0, PT 13.1, INR 1.0, APTT 27.2, Sodium 140, Potassium 3.6, Chloride 106, Carbon Dioxide 29.0, Anion Gap 5, BUN 20 H, Creatinine 0.78, Estim Creat Clear Calc 48.06, Est GFR (MDRD) Af Amer 93, Est GFR (MDRD) Non-Af 77, BUN/Creatinine Ratio 25.8 H, Glucose 79, Calcium 9.7, Troponin I High Sens 6 Imaging Radiology Impression Head/Neck CTA 10/21/23 15:18 IMPRESSION: 1. There is mild atherosclerotic plaque formation of the origin of the right internal carotid artery with less than 50% cross sectional diameter stenosis. ALL ABOVE CRITERIA BY NASCET. 2. There is mild atherosclerotic plaque formation of the origin of the left internal carotid artery with less than 50% cross sectional diameter stenosis. ALL ABOVE CRITERIA BY NASCET. 3. There is calcified plaque formation of the right cavernous carotid artery, with a mild stenosis (less than 50%). ALL ABOVE CRITERIA BY NASCET. 4. There is calcified plaque formation of the left cavernous carotid artery, with a mild stenosis (less than 50%). ALL ABOVE CRITERIA BY NASCET. Electronically Signed: Aj Rodriguez MD at 15:47 EDT , ADDENDUM: 10/21/23 1602 IMPRESSION: 1. There is mild atherosclerotic plaque formation of the origin of the right internal carotid artery with less than 50% cross sectional diameter stenosis. ALL ABOVE CRITERIA BY NASCET. 2. There is mild atherosclerotic plaque formation of the origin of the left internal carotid artery with less than 50% cross sectional diameter stenosis. ALL ABOVE CRITERIA BY NASCET. 3. There is calcified plaque formation of the right cavernous carotid artery, with a mild stenosis (less than 50%). ALL ABOVE CRITERIA BY NASCET. 4. There is calcified plaque formation of the left cavernous carotid artery, with a mild stenosis (less than 50%). ALL ABOVE CRITERIA BY NASCET. N.B. : The above Results were Read Back by Aj Rodriguez MD to Ed Caruso DO, and understanding confirmed on 10/21/2023 15:55:44 (ET). Electronically Signed: Aj Rodriguez MD at 15:47 EDT , Chest X-Ray 10/21/23 15:40 IMPRESSION: There are no acute findings. Electronically Signed: Aj Rodriguez MD at 16:04 EDT , Assessment & Plan Assessment/Plan (1) Slurred speech: PLAN: Plan Slurred speech -Concern for TIA versus stroke -Patient with pacemaker so will obtain a CT tomorrow at noon -Echocardiogram tomorrow if able if not we will proceed with outpatient echo -Start statin 80 mg daily -Check lipids -Check hemoglobin A1c -Stroke order set with [facility] as per protocol -Will allow for some permissive hypertension -Neuro consultation Asthma -Continue home inhalers History of complete heart block -Patient has pacemaker Hypertension -Hold home Lasix -Will continue home metoprolol GERD -Continue home PPI Seasonal allergies -Continue nasal spray at -Continue home levocetirizine Schizophrenia/generalized anxiety disorder -Patient with longstanding delusional thought -Continue home psychiatric medications -Patient does have some mild extraparametal side effects related to her medications which are currently at baseline -Continue outpatient follow-up with psychiatry Tardive dyskinesia -Continue home Ingrezza if able if not we will hold and restart at discharge DVT prophylaxis -Lovenox subcu daily CODE STATUS -DNR CCA okay for short-term intubation as verified on admission Charges/Coding Visit Charges Inpatient E&M: 26172 Init Hosp L2
--- NOTE | 2023-10-21 17:04 | ED.RN ---
unable to transmit vital signs from ED to PCU
[2023-10-21] MEDS: Albuterol 2.5 MG/3 ML VIAL.NEB. INHALATION (19:13)
[2023-10-21] MEDS: Budesonide Respules 0.5 MG/2 ML AMPUL.NEB. INHALATION (19:13)
[2023-10-21] MEDS: Atorvastatin Calcium 80 MG Tablet PO (20:56)
[2023-10-21] MEDS: Metoprolol(XL)Succ 25 MG Tablet PO (20:56)
[2023-10-21] MEDS: VALBENAZINE TOSYLATE 40 MG CAPSULE PO (20:56)
[2023-10-21] MEDS: Montelukast 10 MG Tablet PO (20:56)
[2023-10-21] MEDS: Potassium Chloride Oral Tablet 10 MEQ PO (20:56)
[2023-10-21] MEDS: QUEtiapine 100 MG Tablet PO (20:57)
[2023-10-22] VITALS (7 sets, daily range): BP systolic 118–145; BP diastolic 66–73; PULSE 60–62; RESP 16; TEMP 35.7–36.6; O2SAT 96–100
[2023-10-22] MEDS: Acetaminophen 325 MG Tablet 650 MG PO (06:11)
[2023-10-22] MEDS: Budesonide Respules 0.5 MG/2 ML AMPUL.NEB. INHALATION (07:14)
[2023-10-22] MEDS: Albuterol 2.5 MG/3 ML VIAL.NEB. INHALATION ×2 (07:14→13:11)
[2023-10-22 07:52] LABS: Absolute Lymphocyte Count 1.76 X10^3/uL (0.83-4.51); Absolute Neutrophil Count 2.5 X10^3/uL (2.0-7.7); Basophil# 0.04 X10^3/uL; Basophil% 0.8 % (0-1); Eosinophil# 0.13 X10^3/uL; Eosinophils% 2.6 % (0-5); Hematocrit 35.2 % (37-47); Hemoglobin 11.3 g/dL (12.0-15.0); Lymphocyte # 1.76 X10^3/ul (0.83-4.51); Lymphocyte % 35.3 % (19-41); Mean Corp Hgb Conc 32.1 g/dL (32-36); Mean Corpuscular Volume 96.4 fL (81-99); Mean Platelet Vol. 10.4 fl (6.2-12.0); NRBC Flagged by Analyzer 0 % (0-5); Neutrophil # 2.53 X10^3/uL (2.7-7.7); Neutrophil % 50.9 % (47-70); Platelet Count 203 K/mm3 (150-450); RBC Distribution Width CV 12.9 % (11.6-14.6); RBC Distribution Width SD 45.5 fl (35.1-43.9); Red Blood Count 3.65 M/mm3 (4.2-5.4)
[2023-10-22] MEDS: Aspirin 81 MG TAB.CHEW PO (08:07)
[2023-10-22 08:15] LABS: ALB/GLOB Ratio 1.1 RATIO (0.9-2.4); AST(SGOT) 24 U/L (15-37); Alanine Aminotransfer ALT/SGPT 21 U/L (13-56); Albumin, Serum 3.3 g/dL (3.2-5.0); Alkaline Phosphatase 79 U/L (45-117); Anion Gap 5 (5-15); BUN 17 mg/dL (7-18); BUN/Creat Ratio 23.1 RATIO (10-20); Calcium,Total 9.3 mg/dL (8.5-10.1); Chloride 105 mmol/L (98-107); Cholesterol 178 mg/dL (200); Creatinine, Serum 0.74 mg/dL (0.55-1.02); EST Glomerular Filtration Rate 82 mL/min (>60); Est Glom Filt Rate - Afr Amer 99 mL/min (>60); Estimated Creatinine Clearance 48.06 ml/min; Glucose 93 mg/dL (74-106); High Density Lipoprotein 48 mg/dL; Magnesium 2.1 mg/dL (1.6-2.6); Phosphorus 3.2 mg/dL (2.5-4.9); Potassium 3.9 mmol/L (3.5-5.1); Protein, Total 6.3 g/dL (6.4-8.2); Sodium Level 137 mmol/L (136-145); Triglycerides 149 mg/dL; Very Low Density Lipoprotein 30 mg/dL (5-40)
--- NOTE | 2023-10-22 09:19 | NEURO.CONS ---
Assessment and Plan: Neuro Assessment/Plan MICA YORK is a 73 F with a past medical history of GERD being evaluated by Teleneurology for TIA CT head/CTA: no acute finding Diagnosis: TIA Plan: MRI brain w.o cont can not be done as the pt has a none compatible pacemaker repeat CT head in [facility] [id number] lipid panel vascular risk modification ASA 81 mg daily Lipitor HPI Consult Data Date of Consult: 10/22/23 HPI Narrative HPI Narrative: MICA YORK, is a 73 F who presents with hx of GERD, JYOTI and depression. presented with slurred speech and unsteadiness. she dines vertigo, weakness, numbness or headache, she denies similar events in the past. [facility] Medical History Chronic GERD Hx of viral pneumonia Pleural effusion Hypokalemia Pneumonia Generalized anxiety disorder Schizophrenia Depression Osteoarthritis Asthma Home Medications ?Medication ?Instructions ?Recorded ?Last Taken ?Type budesonide-formoterol HFA 160 2 puff inhalation BID Check with 11/29/18 10/21/23 History mcg-4.5 mcg/actuation aerosol primary doctor inhaler ipratropium bromide 42 mcg (0.06 2 spray NASAL DAILY PRN nasal 11/29/18 08/18/19 History %) nasal spray congestion levocetirizine 5 mg tablet 5 mg PO DAILY ALLERGIES 11/29/18 10/21/23 History montelukast 10 mg tablet 10 mg PO QHS ALLERGIES 11/29/18 10/20/23 History lindrbsu-jbbj-eezm 8 mg-folic 400 1 ea PO DAILY SUPPLEMENT 11/29/18 10/21/23 History mcg-K 50 mcg-lutein 300 mcg tablet omeprazole 20 mg capsule,delayed 20 mg PO DAILY ACID REFLUX 11/29/18 10/21/23 History release albuterol sulfate 90 mcg/actuation 2 puff inhalation Q4H PRN sob 10/19/22 10/18/23 History aerosol inhaler aspirin 81 mg capsule 81 mg PO DAILY heart health 10/19/22 10/21/23 History furosemide 40 mg tablet 20 mg PO DAILY diuretic 11/06/22 10/21/23 History metoprolol succinate 50 mg 25 mg PO BID 11/06/22 10/21/23 History tablet,extended release 24 hr fluoxetine 20 mg capsule 20 mg PO DAILY depression #14 caps 07/23/23 10/21/23 Rx valbenazine 40 mg capsule See Rx Instructions .Route 09/04/23 10/21/23 Rx (Ingrezza) .COMPLEX #30 caps temazepam 30 mg capsule 30 mg PO QHS PRN Sleep 30 days #30 09/05/23 10/20/23 Rx caps calcium carbonate 600 mg-vitamin 1 tab PO DAILY 10/21/23 10/21/23 History D3 5 mcg (200 unit) tablet (Calcium 600 + D(3)) carboxymethylcellulose sodium 0.25 1 drp EACH EYE DAILY 10/21/23 10/21/23 History % eye drops (Lubricant Eye Drops) cholecalciferol (vitamin D3) 50 2,000 unit PO DAILY 10/21/23 10/21/23 History mcg (2,000 unit) tablet (D3 DOTS) glucosamine sulf dipot 1 cap PO DAILY 10/21/23 10/21/23 History chlr,msm,chond 550 mg-C 30 mg-jerrica 1 mg capsule (Glucosamine Chondroitin) potassium chloride 10 mEq 10 meq PO BID 10/21/23 10/21/23 History tablet,extended release quetiapine 50 mg tablet 50 mg PO DAILY 10/21/23 10/21/23 History quetiapine 50 mg tablet 100 mg PO QHS 10/21/23 10/20/23 History Allergy/AdvReac Type Severity Reaction Status Date / Time grass pollen Allergy Itching Verified 10/21/23 15:34 Family History Father CAD (coronary artery disease) Hypertension Sister Hypertension Surgical History S/P placement of cardiac pacemaker S/P unilateral salpingo-oophorectomy S/P appendectomy S/P nasal septoplasty S/P tubal ligation Social History (Updated 10/21/23 @ 16:[address] Allison Ag DO) household members: none housing: house Smoking Status: Never smoker alcohol intake: current alcohol intake frequency: holidays/special occasions only substance use type: does not use Vital Signs Vital Signs Vital Signs: 10/21/23 15:12 10/21/23 15:26 10/21/23 15:26 Temperature 98.7 F Temperature Source Temporal Pulse Rate 62 Pulse Strength Respiratory Rate 16 Respiratory Effort Respiratory Depth Respiratory Pattern Blood Pressure 133/66 H 133/66 H Blood Pressure Mean 88 88 Blood Pressure Source Blood Pressure Position Blood Pressure Location Pulse Ox 98 98 Oxygen Delivery Method Room Air Room Air 10/21/23 15:41 10/21/23 15:56 10/21/23 16:11 Temperature Temperature Source Pulse Rate 72 64 64 Pulse Strength Respiratory Rate 23 H 17 24 H Respiratory Effort Respiratory Depth Respiratory Pattern Blood Pressure 121/70 H 121/70 H 121/70 H Blood Pressure Mean 87 87 87 Blood Pressure Source Blood Pressure Position Blood Pressure Location Pulse Ox 98 99 99 Oxygen Delivery Method Room Air Room Air Room Air 10/21/23 16:11 10/21/23 16:22 10/21/23 16:50 Temperature 98.1 F 97.6 F L Temperature Source Oral Pulse Rate 60 60 62 Pulse Strength Respiratory Rate 12 18 16 Respiratory Effort Respiratory Depth Respiratory Pattern Blood Pressure 141/74 H 141/74 H 151/85 H Blood Pressure Mean 96 96 107 Blood Pressure Source Monitor Blood Pressure Position Semi-Fowlers Blood Pressure Location Left Arm Pulse Ox 99 100 100 Oxygen Delivery Method Room Air Room Air 10/21/23 17:15 10/21/23 19:10 10/21/23 19:10 Temperature Temperature Source Pulse Rate 65 Pulse Strength Respiratory Rate 16 Respiratory Effort Normal Non-Labored Respiratory Depth Normal Respiratory Pattern Normal Blood Pressure Blood Pressure Mean Blood Pressure Source Blood Pressure Position Blood Pressure Location Pulse Ox 99 Oxygen Delivery Method Room Air Room Air 10/21/23 20:50 10/21/23 20:56 10/21/23 22:00 Temperature 97.2 F L Temperature Source Temporal Pulse Rate 62 62 Pulse Strength Normal (2+) Respiratory Rate 16 Respiratory Effort Respiratory Depth Respiratory Pattern Blood Pressure 123/57 H 123/57 H Blood Pressure Mean 79 Blood Pressure Source Monitor Blood Pressure Position Semi-Fowlers Blood Pressure Location Left Arm Pulse Ox 99 Oxygen Delivery Method Room Air 10/21/23 22:00 10/22/23 02:00 10/22/23 02:27 Temperature 96.2 F L Temperature Source Temporal Pulse Rate 62 Pulse Strength Respiratory Rate 16 Respiratory Effort Normal Non-Labored Normal Non-Labored Respiratory Depth Normal Normal Respiratory Pattern Normal Normal Blood Pressure 118/71 Blood Pressure Mean 86 Blood Pressure Source Monitor Blood Pressure Position Semi-Fowlers Blood Pressure Location Left Arm Pulse Ox 96 Oxygen Delivery Method Room Air Room Air Room Air 10/22/23 06:00 10/22/23 07:14 10/22/23 07:14 Temperature 96.5 F L Temperature Source Temporal Pulse Rate 61 61 Pulse Strength Respiratory Rate 16 16 Respiratory Effort Respiratory Depth Respiratory Pattern Normal Blood Pressure 131/66 H Blood Pressure Mean 87 Blood Pressure Source Monitor Blood Pressure Position Semi-Fowlers Blood Pressure Location Left Arm Pulse Ox 96 98 Oxygen Delivery Method Room Air Room Air 10/22/23 08:01 Temperature Temperature Source Pulse Rate Pulse Strength Respiratory Rate Respiratory Effort Normal Non-Labored Respiratory Depth Normal Respiratory Pattern Normal Blood Pressure Blood Pressure Mean Blood Pressure Source Blood Pressure Position Blood Pressure Location Pulse Ox Oxygen Delivery Method Room Air Weight Weight: 50.7 kg Body Mass Index (BMI) 20.4 EEG Results Procedure Details EEG Procedure Details: MICA YORK is a 73 year old F with a past medical history of , who presents for evaluation of Electroencephalogram on DATE at TIME NIHSS NIHSS Nursing Documentation NIHSS Nursing Documentation: NIHSS: Ischemic Stroke/TIA Start: 10/21/23 16:48 Text: For PCU Patients: NIH and Neuro Check every 4 Status: Active hours, PRN and with change in RN caregiver. Freq: [id number] Protocol: Activity Type Activity Date Activity User E-sign Co-sign Detail Recorded Client Recorded Date Recorded By Document 10/22/23 06:00 ADR [id number] 10/22/23 06:15 ADR 10/22/23 06:00 NIH Stroke Scale [NIHSS] A score of 0 is normal or asymptomatic . Total possible score is 42. Inpatient: RN or Physician to activate a stroke alert for onset of new stroke symptoms or with NIHSS increase >/= 3 points. Following change in neurological status, NIHSS will be performed per physician order or more frequently PRN. -1a. Level of Consciousness Alert; keenly responsive -1b. LOC Questions Answers BOTH questions correctly. -1c. LOC Commands Performs both tasks correctly . -2. Best Gaze Normal -3. Visual No visual loss -4. Facial Palsy Normal symmetrical movements -5a. Left Arm No drift; arm holds 90 (or 45 ) degrees for full 10 seconds -5b. Right Arm No drift; arm holds 90 (or 45 ) degrees for full 10 seconds -6a. Left Leg No drift; leg holds 30-degree position for full 5 seconds -6b. Right Leg No drift; leg holds 30-degree position for full 5 seconds -7. Limb Ataxia Absent -8. Sensory Normal; no sensory loss -9. Best Language No aphasia; normal -10. Dysarthria Normal -11. Extinction and Inattention No abnormality -Total 0 Query Text:A score of 0 is normal or asymptomatic. Total possible score is 42 . ED: Notify Physician for NIHSS increase by > / = 3 points. Inpatient: RN or Physician to activate a stroke alert for NIHSS increase of > / = 3 points. Coma Scale [Assess] -Eye Opening Spontaneous -Motor Obeys Commands -Verbal Oriented [Total] -Coma Scale Total 15 Physical Exam Neuro Neuro Narrative: awake alert oriented to self and place did notknow the exact day language intact face symmetric Move all ext with no drift sensation intact Lab / Micro Data 10/22/23 07:25 10/22/23 07:25 Labs: Laboratory Results - last 24 hr 10/21/23 15:23: POC Glucose 99 10/21/23 15:25: WBC 5.3, RBC 4.00 L, Hgb 12.3, Hct 38.6, MCV 96.5, MCH 30.8, MCHC 31.9 L, RDW Std Deviation 45.7 H, RDW Coeff of Jeff 12.8, Plt Count 222, MPV 10.3, Immature Gran % (Auto) 0.400, Neut % (Auto) 63.8, Lymph % (Auto) 25.8, [place] % (Auto) 7.3, Eos % (Auto) 2.1, Baso % (Auto) 0.6, Absolute Neuts (auto) 3.4, Absolute Lymphs (auto) 1.37, Nucleated RBC % 0, PT 13.1, INR 1.0, APTT 27.2, Sodium 140, Potassium 3.6, Chloride 106, Carbon Dioxide 29.0, Anion Gap 5, BUN 20 H, Creatinine 0.78, Estim Creat Clear Calc 48.06, Est GFR (MDRD) Af Amer 93, Est GFR (MDRD) Non-Af 77, BUN/Creatinine Ratio 25.8 H, Glucose 79, Hemoglobin A1c 5.0, Calcium 9.7, Troponin I High Sens 6 10/22/23 07:25: WBC 5.0, RBC 3.65 L, Hgb 11.3 L, Hct 35.2 L, MCV 96.4, MCH 31.0, MCHC 32.1, RDW Std Deviation 45.5 H, RDW Coeff of Jeff 12.9, Plt Count 203, MPV 10.4, Immature Gran % (Auto) 0.400, Neut % (Auto) 50.9, Lymph % (Auto) 35.3, [place] % (Auto) 10.0, Eos % (Auto) 2.6, Baso % (Auto) 0.8, Absolute Neuts (auto) 2.5, Absolute Lymphs (auto) 1.76, Nucleated RBC % 0, Sodium 137, Potassium 3.9, Chloride 105, Carbon Dioxide 27.0, Anion Gap 5, BUN 17, Creatinine 0.74, Estim Creat Clear Calc 48.06, Est GFR (MDRD) Af Amer 99, Est GFR (MDRD) Non-Af 82, BUN/Creatinine Ratio 23.1 H, Glucose 93, Calcium 9.3, Phosphorus 3.2, Magnesium 2.1, Total Bilirubin 0.40, AST 24, ALT 21, Alkaline Phosphatase 79, Total Protein 6.3 L, Albumin 3.3, Globulin 3.0, Albumin/Globulin Ratio 1.1, Triglycerides 149, Cholesterol 178, LDL Cholesterol 100, VLDL Cholesterol 30, HDL Cholesterol 48 Imaging Radiology Impression Head/Neck CTA 10/21/23 15:18 IMPRESSION: 1. There is mild atherosclerotic plaque formation of the origin of the right internal carotid artery with less than 50% cross sectional diameter stenosis. ALL ABOVE CRITERIA BY NASCET. 2. There is mild atherosclerotic plaque formation of the origin of the left internal carotid artery with less than 50% cross sectional diameter stenosis. ALL ABOVE CRITERIA BY NASCET. 3. There is calcified plaque formation of the right cavernous carotid artery, with a mild stenosis (less than 50%). ALL ABOVE CRITERIA BY NASCET. 4. There is calcified plaque formation of the left cavernous carotid artery, with a mild stenosis (less than 50%). ALL ABOVE CRITERIA BY NASCET. Electronically Signed: Aj Rodriguez MD at 15:47 EDT , ADDENDUM: 10/21/23 1602 IMPRESSION: 1. There is mild atherosclerotic plaque formation of the origin of the right internal carotid artery with less than 50% cross sectional diameter stenosis. ALL ABOVE CRITERIA BY NASCET. 2. There is mild atherosclerotic plaque formation of the origin of the left internal carotid artery with less than 50% cross sectional diameter stenosis. ALL ABOVE CRITERIA BY NASCET. 3. There is calcified plaque formation of the right cavernous carotid artery, with a mild stenosis (less than 50%). ALL ABOVE CRITERIA BY NASCET. 4. There is calcified plaque formation of the left cavernous carotid artery, with a mild stenosis (less than 50%). ALL ABOVE CRITERIA BY NASCET. N.B. : The above Results were Read Back by Aj Rodriguez MD to Ed Caruso DO, and understanding confirmed on 10/21/2023 15:55:44 (ET). Electronically Signed: Aj Rodriguez MD at 15:47 EDT , Chest X-Ray 10/21/23 15:40 IMPRESSION: There are no acute findings. Electronically Signed: Aj Rodriguez MD at 16:04 EDT , Active Medications Active Medications Active Medications: Current Medications Generic Name Dose Route Start Last Admin Trade Name Freq PRN Reason Stop Dose Admin Acetaminophen 650 mg 10/21/23 16:48 10/22/23 06:11 Acetaminophen 325 Mg Tablet PO 650 mg Q4H PRN PRN Administration Pain 1-10 Or Fever>99.6 Albuterol Sulfate 2.5 mg 10/21/23 16:54 Albuterol 2.5 Mg/3 Ml Vial.Neb. INHALATION Q4H PRN sob Albuterol Sulfate 2.5 mg 10/21/23 17:00 10/22/23 07:14 Albuterol 2.5 Mg/3 Ml Vial.Neb. INHALATION 2.5 mg Q6HWA.RT BRAD Administration Aspirin 81 mg 10/22/23 08:00 10/22/23 08:07 Aspirin 81 Mg Tab.Chew PO 81 mg DAILYCM BRAD Administration Atorvastatin Calcium 80 mg 10/21/23 22:00 10/21/23 20:56 Atorvastatin Calcium 80 Mg Tablet PO 80 mg QHS BRAD Administration Budesonide 0.5 mg 10/21/23 17:00 10/22/23 07:14 Budesonide Respules 0.5 Mg/2 Ml Ampul.Neb. INHALATION 0.5 mg Q12H.RT BRAD Administration Enoxaparin Sodium 40 mg 10/22/23 10:00 Enoxaparin 40 Mg/0.4 Ml Syringe SC DAILY [facility] Fluoxetine HCl 20 mg 10/22/23 10:00 Fluoxetine 20 Mg Capsule PO DAILY [facility] Ipratropium [place] 2 spray 10/21/23 16:48 Ipratropium [place] 0.06% Nasal Smilax NASAL DAILY PRN nasal congestion Loratadine 10 mg 10/22/23 10:00 Loratadine 10 Mg Tablet PO DAILY [facility] Melatonin 3 mg 10/21/23 16:48 Melatonin 3 Mg Tablet PO QHS PRN PRN INSOMNIA Metoprolol Succinate 25 mg 10/21/23 22:00 10/21/23 20:56 Metoprolol(Xl)Succ 25 Mg Tablet PO 25 mg BID BRAD Administration Protocol Montelukast Sodium 10 mg 10/21/23 22:00 10/21/23 20:56 Montelukast 10 Mg Tablet PO 10 mg QHS BRAD Administration Ondansetron HCl 4 mg 10/21/23 16:48 Ondansetron 4 Mg/2 Ml Vial IV Q8H PRN PRN NAUSEA/VOMITING Pantoprazole Sodium 20 mg 10/22/23 10:00 Pantoprazole Sodium 20 Mg Tablet PO DAILY [facility] Potassium Chloride 10 meq 10/21/23 22:00 10/21/23 20:56 Potassium Chloride Oral Tablet 10 Meq PO 10 meq BID BRAD Administration Quetiapine Fumarate 50 mg 10/22/23 10:00 Quetiapine 25 Mg Tablet PO DAILY [facility] Quetiapine Fumarate 100 mg 10/21/23 22:00 10/21/23 20:57 Quetiapine 100 Mg Tablet PO 100 mg QHS BRAD Administration Senna/Docusate Sodium 2 tablet 10/21/23 16:48 Senna/Docusate Sodium 1 Tablet PO BID PRN PRN Constipation Sodium Chloride 10 - 40 ml 10/21/23 16:56 0.9% Saline Lock 10 Ml Syringe IV UD PRN SALINE FLUSH Temazepam 30 mg 10/21/23 16:57 Temazepam 15 Mg Capsule PO QHS PRN Sleep
[2023-10-22] MEDS: Loratadine 10 MG Tablet PO (09:37)
[2023-10-22] MEDS: QUEtiapine 25 MG Tablet 50 MG PO (09:38)
[2023-10-22] MEDS: Metoprolol(XL)Succ 25 MG Tablet PO (09:38)
[2023-10-22] MEDS: FLUoxetine 20 MG Capsule PO (09:38)
[2023-10-22] MEDS: Potassium Chloride Oral Tablet 10 MEQ PO (09:38)
[2023-10-22] MEDS: Pantoprazole Sodium 20 MG Tablet PO (09:38)
[2023-10-22] MEDS: Enoxaparin 40 MG/0.4 ML Syringe SC (09:38)
--- NOTE | 2023-10-22 12:00 | CT_ITS ---
INDICATION: stroke EXAMINATION: CT BRAIN - CT Head or Brain W/O Contrast Injection TECHNIQUE: Multiple axial images were obtained of the head without intravenous contrast. The protocol utilizes one or more of the following dose reduction techniques: automated exposure control, adjustment of mA and/or kV according to patient size,and/or use of iterative reconstruction technique. IV Contrast dosage and agent: None. RADIATION DOSAGE (If Supplied By Facility): CTDIvol = ( 44.99 ) mGy, DLP = ( 745.49 ) mGycm COMPARISON: Prior study dated: 10/21/2023 FINDINGS: BRAIN PARENCHYMA: No intra- or extra-axial hemorrhage. No evidence of acute infarct. No intracranial mass or mass effect. There is preservation of the trujillo/white matter interface. Mild chronic periventricular deep white matter changes likely due to microvascular disease. Posterior fossa structures are unremarkable. CSF SPACES: Mild diffuse atrophy. No hydrocephalus. Basal cisterns are patent. CALVARIUM, SKULL BASE, PARANASAL SINUSES AND MASTOID AIR CELLS: Clear. No discrete lytic or blastic abnormalities. ORBITS: Previous cataract surgery. CT/Brain/Head without Contrast IMPRESSION: No acute intracranial process. If symptoms persist, MRI of the brain is recommended. Electronically Signed: Beny Stafford MD at 12:28 EDT ,
--- NOTE | 2023-10-22 14:04 | PCM.DC.SUM ---
Providers Date of Admission: 10/21/23 Date of Discharge: 10/22/23 Primary Care Physician: NITESH Amin Consultations 10/21/23 16:48 Consult: Tele-Neurology Routine Consulting Provider: [facility] Reason for Consult: Acute Ischemic Stroke/TIA EMERGENT Consult: No MD Notified: Yes Date Notified: 10/21/23 Time Notified: 17:05 Method of Notification: Answering Service Nursing Unit Staff Notify [facility] of Tele-Neurology Consult: Yes Reason For Visit: SLURRED SPEECH Diagnosis Discharge Diagnosis (1) Slurred speech: Status: Acute Code(s): R47.81 - Slurred speech Medications at Discharge Home Medications budesonide-formoterol HFA 160 mcg-4.5 mcg/actuation aerosol inhaler 2 puff inhalation BID breathing 11/29/18 ipratropium bromide 42 mcg (0.06 %) nasal spray 2 spray NASAL DAILY PRN nasal congestion 11/29/18 levocetirizine 5 mg tablet 5 mg PO DAILY ALLERGIES 11/29/18 montelukast 10 mg tablet 10 mg PO QHS ALLERGIES 11/29/18 whbswlaa-smdh-gams 8 mg-folic 400 mcg-K 50 mcg-lutein 300 mcg tablet 1 ea PO DAILY SUPPLEMENT 11/29/18 omeprazole 20 mg capsule,delayed release 20 mg PO DAILY ACID REFLUX 11/29/18 albuterol sulfate 90 mcg/actuation aerosol inhaler 2 puff inhalation Q4H PRN sob 10/19/22 aspirin 81 mg capsule 81 mg PO DAILY heart health 10/19/22 furosemide 40 mg tablet 20 mg PO DAILY diuretic 11/06/22 metoprolol succinate 50 mg tablet,extended release 24 hr 25 mg PO BID blood pressure 11/06/22 fluoxetine 20 mg capsule 20 mg PO DAILY depression #14 caps 07/23/23 valbenazine 40 mg capsule (Ingrezza) See Rx Instructions .Route .COMPLEX tardive dyskinesia #30 caps 09/04/23 temazepam 30 mg capsule 30 mg PO QHS PRN Sleep 30 days #30 caps 09/05/23 calcium carbonate 600 mg-vitamin D3 5 mcg (200 unit) tablet (Calcium 600 + D(3)) 1 tab PO DAILY supplement 10/21/23 carboxymethylcellulose sodium 0.25 % eye drops (Lubricant Eye Drops) 1 drp EACH EYE DAILY eye health 10/21/23 cholecalciferol (vitamin D3) 50 mcg (2,000 unit) tablet (D3 DOTS) 2,000 unit PO DAILY vitamin 10/21/23 glucosamine sulf dipot chlr,msm,chond 550 mg-C 30 mg-jerrica 1 mg capsule (Glucosamine Chondroitin) 1 cap PO DAILY supplement 10/21/23 potassium chloride 10 mEq tablet,extended release 10 meq PO BID supplement 10/21/23 quetiapine 50 mg tablet 50 mg PO DAILY mental health 10/21/23 quetiapine 50 mg tablet 100 mg PO QHS mental health 10/21/23 atorvastatin 40 mg tablet 40 mg PO QHS #30 tabs 10/22/23 Hospital Course Operations None Procedures 2-D Echocardiogram, EKG and - (CT Brain x 2/CTA head and neck/CXR) Summary of Care Provided Minutes Spent on Discharge: 38 Hospital Course: MICA YORK, is a 73 F who presented to the emergency department at [facility] on 10/21/2023 with a chief complaint of slurred speech. This was witnessed by family. Per discussion with her daughter, the patient's grandson talk to the patient at about 1 PM and she had no abnormalities on her speech. Patient wanted to talk to her daughter so she called her daughter at 130 and noted that her speech was off and she was slurring at the end of the conversation. She also was stating that she had trouble sitting up however the patient indicated she just wanted to lie down and indicated she was tired so she may have had some expressive issues as well. She does have a history of schizophrenia with tardive dyskinesia and her speech at baseline is a little bit slowed and deliberate however it was a lot worse than it is at baseline per family. Symptoms lasted maybe 15 to 30 minutes since initial onset and completely resolved. She also had some unsteady gait at the time which resolved as well. She does live alone and manages independently at baseline. She takes a baby aspirin typically but no other anticoagulation. She is never had any previous symptoms. She does have a pacemaker for history of complete heart block. Vital signs on presentation showed a temperature of 98.7, heart rate 62, respiratory rate 16, blood pressure was 88, oxygen saturation was 98% on room air. Her CBC is unremarkable. Her coags were normal. Chemistry panel was unremarkable. Glucose was 79. Troponin was 6. CT of her brain was unremarkable. There was mild atherosclerotic plaque of less than 50% at bilateral internal carotid arteries as well as bilateral cavernous carotid arteries and normal vertebrals. Chest x-ray showed no acute findings and EKG showed paced rhythm. NIH was 0. She was seen by the stroke neurologist in the emergency department and they recommended admission with a repeat CAT scan at 24 hours as well as typical stroke workup.NIH remained a 0 for her entire hospitalization. MRI again was not able to be performed due to her pacer. Repeat CT at 24 hrs was unremarkable. Echo showed EF of 55%, no diastolic dysfunction, and trivial MV and TV insufficiency. Her LDL was 100 with a goal of 70 so she was started on atorvastatin 40 mg at HS and will need f/u CMP in 6 weeks and f/u lipids in 3 mos. She will continue ASA 81 mg daily and BP were close to goal here (130/80 or less) and I have asked her to f/u at her PCP to keep an eye on her BP to ensure she is at goal. She was also asked to f/u with neuro here with Dr. Cm at his first available appt. She was discharged home is stable condition and a script was given to her at discharge to fill for the atorvastatin. Discharge dx: TIA Slurred Speech-resolved Mild carotid artery stenosis Essential HTN Hyperlipidemia GERD Seasonal allergies Schizophrenia JYOTI Tardive dyskinesia Asthma Physical Exam Const alert, oriented x3, no apparent distress, average body habitus, no limitations, healthy appearing and well nourished Constitutional Narrative: Elderly, white female, sitting up in a chair at the bedside eating lunch and watching television, daughter at bedside, patient appears comfortable, nontoxic General Appearance: cooperative, comfortable, well kempt and well developed Orientation / Consciousness: awake, oriented to person, oriented to place and oriented to time Exam Limitations: no limitations Nutritional Appearance: thin HEENT normocephalic, head/scalp atraumatic, hearing grossly normal bilaterally and moist oral mucous membranes HEENT Narrative: Mallampati 2, no thrush Eyes PERRL, EOMs intact bilaterally and conjunctivae normal Eyes Narrative: No scleral icterus Neck no lymphadenopathy and supple Neck Narrative: Trachea midline, no thyroid enlargement Resp normal respiratory effort, no retractions, no use of accessory muscles and clear to auscultation bilaterally Auscultation: Negative for rales, rhonchi or wheezes Cardio regular rate, regular rhythm, S1 normal heart sound, S2 normal heart sound, no murmurs, no rub, no gallops and no clicks GI normal to inspection, nondistended, normoactive bowel sounds, soft to palpation and non-tender Extremity no clubbing, cyanosis or edema Extremity Narrative: Pedal and radial pulses are 2+ Skin no rashes or lesions noted, no wounds, skin turgor normal and no jaundice Neuro oriented x3, CN's II-XII intact bilaterally, moves all extremities and no focal motor deficits Speech: speech normal Psych Psych Narrative: Affect is flat but eye contact is good and patient interacts appropriately Weight / BMI Weight Weight: 50.7 kg Body Mass Index (BMI) 20.4 ABG / Lab / Microbiology Data 10/22/23 07:25 10/22/23 07:25 Laboratory: Laboratory Results - last 24 hr 10/21/23 15:23: POC Glucose 99 10/21/23 15:25: WBC 5.3, RBC 4.00 L, Hgb 12.3, Hct 38.6, MCV 96.5, MCH 30.8, MCHC 31.9 L, RDW Std Deviation 45.7 H, RDW Coeff of Jeff 12.8, Plt Count 222, MPV 10.3, Immature Gran % (Auto) 0.400, Neut % (Auto) 63.8, Lymph % (Auto) 25.8, [place] % (Auto) 7.3, Eos % (Auto) 2.1, Baso % (Auto) 0.6, Absolute Neuts (auto) 3.4, Absolute Lymphs (auto) 1.37, Nucleated RBC % 0, PT 13.1, INR 1.0, APTT 27.2, Sodium 140, Potassium 3.6, Chloride 106, Carbon Dioxide 29.0, Anion Gap 5, BUN 20 H, Creatinine 0.78, Estim Creat Clear Calc 48.06, Est GFR (MDRD) Af Amer 93, Est GFR (MDRD) Non-Af 77, BUN/Creatinine Ratio 25.8 H, Glucose 79, Hemoglobin A1c 5.0, Calcium 9.7, Troponin I High Sens 6 10/22/23 07:25: WBC 5.0, RBC 3.65 L, Hgb 11.3 L, Hct 35.2 L, MCV 96.4, MCH 31.0, MCHC 32.1, RDW Std Deviation 45.5 H, RDW Coeff of Jeff 12.9, Plt Count 203, MPV 10.4, Immature Gran % (Auto) 0.400, Neut % (Auto) 50.9, Lymph % (Auto) 35.3, [place] % (Auto) 10.0, Eos % (Auto) 2.6, Baso % (Auto) 0.8, Absolute Neuts (auto) 2.5, Absolute Lymphs (auto) 1.76, Nucleated RBC % 0, Sodium 137, Potassium 3.9, Chloride 105, Carbon Dioxide 27.0, Anion Gap 5, BUN 17, Creatinine 0.74, Estim Creat Clear Calc 48.06, Est GFR (MDRD) Af Amer 99, Est GFR (MDRD) Non-Af 82, BUN/Creatinine Ratio 23.1 H, Glucose 93, Calcium 9.3, Phosphorus 3.2, Magnesium 2.1, Total Bilirubin 0.40, AST 24, ALT 21, Alkaline Phosphatase 79, Total Protein 6.3 L, Albumin 3.3, Globulin 3.0, Albumin/Globulin Ratio 1.1, Triglycerides 149, Cholesterol 178, LDL Cholesterol 100, VLDL Cholesterol 30, HDL Cholesterol 48 Radiography Diagnostic Testing: Radiology Impression Head/Neck CTA 10/21/23 15:18 IMPRESSION: 1. There is mild atherosclerotic plaque formation of the origin of the right internal carotid artery with less than 50% cross sectional diameter stenosis. ALL ABOVE CRITERIA BY NASCET. 2. There is mild atherosclerotic plaque formation of the origin of the left internal carotid artery with less than 50% cross sectional diameter stenosis. ALL ABOVE CRITERIA BY NASCET. 3. There is calcified plaque formation of the right cavernous carotid artery, with a mild stenosis (less than 50%). ALL ABOVE CRITERIA BY NASCET. 4. There is calcified plaque formation of the left cavernous carotid artery, with a mild stenosis (less than 50%). ALL ABOVE CRITERIA BY NASCET. Electronically Signed: Aj Rodriguez MD at 15:47 EDT , ADDENDUM: 10/21/23 [id number] IMPRESSION: 1. There is mild atherosclerotic plaque formation of the origin of the right internal carotid artery with less than 50% cross sectional diameter stenosis. ALL ABOVE CRITERIA BY NASCET. 2. There is mild atherosclerotic plaque formation of the origin of the left internal carotid artery with less than 50% cross sectional diameter stenosis. ALL ABOVE CRITERIA BY NASCET. 3. There is calcified plaque formation of the right cavernous carotid artery, with a mild stenosis (less than 50%). ALL ABOVE CRITERIA BY NASCET. 4. There is calcified plaque formation of the left cavernous carotid artery, with a mild stenosis (less than 50%). ALL ABOVE CRITERIA BY NASCET. N.B. : The above Results were Read Back by Aj Rodriguez MD to Ed Caruso DO, and understanding confirmed on 10/21/2023 15:55:44 (ET). Electronically Signed: Aj Rodriguez MD at 15:47 EDT , Chest X-Ray 10/21/23 15:40 IMPRESSION: There are no acute findings. Electronically Signed: Aj Rodriguez MD at 16:04 EDT , Echocardiogram 10/21/23 16:21 Interpretation Summary The estimated ejection fraction is 55 %. No evidence for diastolic dysfunction. Trivial mitral valve insufficiency. Trivial aortic valve insufficiency. Ordering Physician: Allison Ag Performed By: Jayna Olvera, RDJACOBO Brain CT 10/22/23 12:00 IMPRESSION: No acute intracranial process. If symptoms persist, MRI of the brain is recommended. Electronically Signed: Beny Stafford MD at 12:28 EDT , D/C Instructions Discharge Diet: Low fat / Low cholesterol Discharge Activity: Return to Normal Activity Meaningful Use Info Meaningful Use Meaningful Use Diagnoses (Choose all that apply): None applicable Ischemic Stroke Statin Dosing Therapy Reference: STATIN DOSE THERAPY REFERENCE: * Patients > 75 years receive moderate or high dose statin therapy. * Patients 75 years or YOUNGER should receive HIGH intensity statin dose unless contraindicated. You will be required to document reason for non-treatment if statin daily dose does not meet guidelines. HIGH DOSE STATIN THERAPY DAILY Atorvastatin > than or = to 40 mg Rosuvastatin > than or = to 20 mg Amlodipine + Atorvastatin > than or = to 2.5/40 mg Ezetimibe + Simvastatin 10/80 mg Simvastatin 80mg Discharge Plan Admission Admit Date/Time: 10/21/23 16:12 Primary Reason for Your Visit: Slurred Speech due to TIA Attending Provider: Allison Ag Primary Care Provider: Magdalena Archer Consulting Providers: Agus Juarez; Steven Duran; Isabel Abrams; Katey Enrique; Radha Payne; Earnest Diaz; Addie Martinez; Shiraz Hodgson; Jeffrey Scott; Kim Samuel; Karthik Ruffin; Kassidy Ramsay; Andrew Luna; Lucas Be; Lonnie Powell; Juan Alberto Godfrey; Horace Solis; Yeimy Ag; Nate Leblanc Discharge Orders/Prescriptions Prescriptions: New atorvastatin 40 mg tablet 40 mg PO QHS Qty: 30 1RF Continued metoprolol succinate 50 mg tablet extended release 24 hr 25 mg PO BID omeprazole 20 MG capsule 20 mg PO DAILY montelukast 10 MG tablet 10 mg PO QHS ipratropium bromide 1 SPRAY spray,non-aerosol 2 spray NASAL DAILY PRN (Reason: nasal congestion) budesonide-formoterol 1 INHALER inhaler 2 puff inhalation BID levocetirizine 5 MG tablet 5 mg PO DAILY yeqfecyj-fux-gttd-FA-vit K-lut 1 EACH tablet 1 ea PO DAILY albuterol sulfate 90 mcg/actuation HFA aerosol inhaler 2 puff INHALATION Q4H PRN (Reason: sob) aspirin 81 mg Capsule 81 mg PO DAILY furosemide 40 mg tablet 20 mg PO DAILY calcium carbonate-vitamin D3 [Calcium 600 + D(3)] 600 mg-5 mcg (200 unit) tablet 1 tab PO DAILY cholecalciferol (vitamin D3) [D3 DOTS] 50 mcg (2,000 unit) tablet 2,000 unit PO DAILY Lubricant Eye Drops 0.25 % drops 1 drp EACH EYE DAILY Glucosamine Chondroitin 550-30-1 mg capsule 1 cap PO DAILY quetiapine 50 mg tablet 50 mg PO DAILY Patient Comments: PT TAKES 1 TAB IN THE MORNING AND 2 TABS IN THE EVENING quetiapine 50 mg tablet 100 mg PO QHS Patient Comments: PT TAKES 1 TAB IN THE MORNING AND 2 TABS IN THE EVENING potassium chloride 10 mEq tablet extended release 10 meq PO BID fluoxetine 20 mg capsule 20 mg PO DAILY Qty: 14 0RF Ingrezza 40 mg capsule See Rx Instructions .ROUTE .COMPLEX Qty: 30 2RF Dose Instruction: TAKE 1 CAPSULE BY MOUTH DAILY Rx Instructions: TAKE 1 CAPSULE BY MOUTH DAILY temazepam 30 mg capsule 30 mg PO QHS PRN (Reason: Sleep) 30 Days Qty: 30 2RF Referrals / Follow Up: Yannick Cm MD [Non-Staff -Ordering Privileges] - See Referral Note (Call to make appt for 1st available) Magdalena Archer PA [Primary Care Provider] - Within 1 Week Disposition Disposition (needs filled in before D/C Order can be placed): Home, Self Care Charges/Coding Visit Charges Inpatient E&M: 45244 Disch Hosp >30min
== END 2023-10-22 16:15 | disposition home or self-care (01) ==
LOC: ED 16:19 → PCU 16:24
PROVIDERS: Admitting Provider Internal Medicine; Emergency Provider Emergency Medicine; PCP Physician Assistant; Visit Provider Internal Medicine
DX: G45.9 Transient cerebral ischemic attack, unspecified (principal); F20.9 Schizophrenia, unspecified; R47.81 Slurred speech; Z79.82 Long term (current) use of aspirin; Z95.0 Presence of cardiac pacemaker; F41.1 Generalized anxiety disorder; K21.9 Gastro-esophageal reflux disease without esophagitis; Z79.899 Other long term (current) drug therapy; J45.909 Unspecified asthma, uncomplicated; I10 Essential (primary) hypertension
CPT/HCPCS: 36415; 70450; 70496; 70498; 71045; 80048; 80053; 80061; 82962; 83036; 83735; 84100; 84484; 85025; 85610; 85730; 92610; 93005; 93306; 94640; 94668; 94762; 96372; 97161; 97166; 97802; 99221; 99285; Q9967; G0378